=== PATIENT | female | born 1935 | race Caucasian/White ===

== ENCOUNTER → 2016-06-26 | Outpatient (REF) ==
[~2016-06-26] MED LIST: FURO20TA2 PO; KLOR1CAP2 PO; LEVO50TA45 PO; VITA100066 PO
[2016-06-26 08:44] LABS: MEAN CORPUSCULAR HEMOGLOBIN 29.4 pg (27.0-33.0); MEAN CORPUSCULAR HGB CONC 33.1 g/dl (32.0-36.5); MEAN CORPUSCULAR VOLUME 88.8 fl (80.0-96.0); RED CELL DISTRIBUTION WIDTH 13.6 % (11.5-14.5)
== END ==
LOC: SKLAB2 07:00
PROVIDERS: ATTEND Internal Medicine
DX: I63.9 Cerebral infarction, unspecified (principal)

== ENCOUNTER → 2016-08-23 | Outpatient (REF) | payer MEDICARE, MEDICAID ==
[2016-08-23 19:59] LABS: MEAN CORPUSCULAR HEMOGLOBIN 29.7 pg (27.0-33.0); MEAN CORPUSCULAR HGB CONC 32.7 g/dl (32.0-36.5); MEAN CORPUSCULAR VOLUME 90.8 fl (80.0-96.0); RED CELL DISTRIBUTION WIDTH 13.5 % (11.5-14.5); WHITE BLOOD COUNT 8.8 K/mm3 (4.0-10.0)
[2016-08-23 20:18] LABS: ALBUMIN 3.8 GM/DL (3.2-5.2); ALKALINE PHOSPHATASE 119 U/L (45-117); ALT/SGPT 20 U/L (12-78); ANION GAP 6 MEQ/L (8-16); AST/SGOT 24 U/L (15-37); BILIRUBIN,TOTAL 0.6 MG/DL (0.2-1.0); BLOOD UREA NITROGEN 25 MG/DL (7-18); CALCIUM LEVEL 9.5 MG/DL (8.8-10.2); CARBON DIOXIDE LEVEL 28 MEQ/L (21-32); CHLORIDE LEVEL 107 MEQ/L (98-107); CREATININE FOR GFR 0.95 MG/DL (0.55-1.02); FREE T4 1.44 NG/DL (0.76-1.46); GLOMERULAR FILTRATION RATE > 60.0 (>39); GLUCOSE, FASTING 92 MG/DL (83-110); POTASSIUM SERUM 4.3 MEQ/L (3.5-5.1); SODIUM LEVEL 141 MEQ/L (136-145)
== END ==
LOC: M SFHCADAM 15:01
PROVIDERS: ATTEND Physician Assistant
DX: R63.4 Abnormal weight loss (principal); E03.9 Hypothyroidism, unspecified; E55.9 Vitamin D deficiency, unspecified
CPT/HCPCS: 80053; 82306; 84439; 84443; 85027; G0463

== ENCOUNTER 2016-09-19 12:24 | Emergency (ER) | payer MEDICARE, MEDICAID ==
[~2016-09-19] VITALS: Ht 142.2 cm; Wt 35.4 kg
[2016-09-19] MEDS ORDERED: AMLO5TAB2 PO (13:31)
[2016-09-19] MEDS ORDERED: PLAV75TA38 PO (13:31)
[2016-09-19] MEDS ORDERED: NS 500 ML IV ONE (13:45)
[2016-09-19 14:21] LABS: BASO % 0.2 % (0.0-1.0); EOS % 0.1 % (0.0-3.0); LARGE UNSTAINED CELL # 0.1 K/mm3 (0.0-0.4); LARGE UNSTAINED CELL % 0.5 % (0.0-4.0); LYMPH # 0.9 K/mm3 (1.5-4.5); LYMPH % 8.8 % (24.0-44.0); MEAN CORPUSCULAR HEMOGLOBIN 29.5 pg (27.0-33.0); MEAN CORPUSCULAR HGB CONC 33.3 g/dl (32.0-36.5); MEAN CORPUSCULAR VOLUME 88.7 fl (80.0-96.0); MONO # 0.3 K/mm3 (0.0-0.8); MONO % 2.8 % (0.0-5.0); NEUTROPHILS # 8.8 K/mm3 (1.8-7.7); NEUTROPHILS % 87.6 % (36.0-66.0); PLATELET COUNT, AUTOMATED 251 k/mm3 (150-450); RED CELL DISTRIBUTION WIDTH 13.6 % (11.5-14.5); WHITE BLOOD COUNT 10.1 K/mm3 (4.0-10.0)
[2016-09-19 14:37] LABS: ALBUMIN 3.7 GM/DL (3.2-5.2); ALBUMIN/GLOBULIN RATIO 1.06 (1.00-1.93); ALKALINE PHOSPHATASE 113 U/L (45-117); ALT/SGPT 21 U/L (12-78); ANION GAP 8 MEQ/L (8-16); AST/SGOT 19 U/L (15-37); BILIRUBIN,DIRECT 0.2 MG/DL (0.0-0.2); BILIRUBIN,TOTAL 0.6 MG/DL (0.2-1.0); BLOOD UREA NITROGEN 19 MG/DL (7-18); CALCIUM LEVEL 9.5 MG/DL (8.8-10.2); CARBON DIOXIDE LEVEL 29 MEQ/L (21-32); CHLORIDE LEVEL 106 MEQ/L (98-107); CREATININE FOR GFR 0.88 MG/DL (0.55-1.02); GLOMERULAR FILTRATION RATE > 60.0 (>39); GLUCOSE, FASTING 121 MG/DL (83-110); SODIUM LEVEL 143 MEQ/L (136-145); TOTAL PROTEIN 7.2 GM/DL (6.4-8.2)
[2016-09-19] MEDS ORDERED: ISOVUE-370 76% 100ML VIAL (Q9967) As Ordered ONE (15:03)
[2016-09-19] MEDS ORDERED: NS 250 ML IV ONE (15:30)
--- NOTE | 2016-09-19 15:34 | REP ---
Clinical: Trauma. Technique: Axial contrast enhanced images from the thoracic inlet to the upper abdomen using 100 ml Isovue 370 intravenous contrast material with multiplanar re-formations. Findings: Satisfactory enhancement of the thoracic aorta and pulmonary vasculature is achieved. No filling defects are identified to suggest pulmonary embolus with the exception of atherosclerotic disease the thoracic aorta is without aneurysm or dissection. Further evaluation of the mediastinum demonstrates atherosclerotic changes of the coronary arteries without cardiomegaly or pericardial effusion. The bilateral lung krishnan demonstrate chronic interstitial changes without consolidation/contusion, pleural effusion or pneumothorax. No adenopathy noted. Surrounding musculoskeletal structures intact and no obvious rib or vertebral body fracture is appreciated. Impression: 1. No evidence for acute mediastinal or pleuroparenchymal trauma/injury or pathology. 2. Skeletal structures demonstrate degenerative changes without evidence for acute rib, sternal or vertebral body fracture. 3. Atherosclerotic changes to the aorta without aneurysm or dissection. Normal pulmonary arteries without pulmonary embolus. Signed by Shailesh Padilla MD 09/19/2016 03:26 P
--- NOTE | 2016-09-19 15:43 | REP ---
Clinical: History of trauma with right-sided pain, nausea and vomiting. Technique: Axial contrast enhanced images from the lung bases to the pubic symphysis using 100 ml Isovue 370 intravenous contrast material with coronal and sagittal re-formations. Findings: Lung bases demonstrate chronic changes. No evidence for solid organ injury. Liver, spleen, and bilateral adrenal glands are normal. Gallbladder demonstrates layering sludge without acute cholecystitis. The pancreas demonstrates likely benign cyst at the tail measuring 2.0 cm. Kidneys demonstrate cortical atrophic changes and few scattered subcentimeter cysts. The enteric system is without obstruction or acute inflammatory process - mild fecal stasis is suggested. Pelvis demonstrates normal bladder and evidence for prior hysterectomy. No ascites. No free air. No obvious adenopathy or mass lesion. Atherosclerotic changes of the vasculature noted without aneurysm or dissection. Musculoskeletal structures demonstrate degenerative changes including chronic compression fracture at T12. Impression: 1. No evidence for acute trauma/injury or pathology. 2. Chronic findings as described above including 2 cm pancreatic tail cyst, cholelithiasis, chronic compression fracture at T12. Signed by Shailesh Padilla MD 09/19/2016 03:34 P
--- NOTE | 2016-09-19 15:53 | REP ---
CT HEAD WITHOUT CONTRAST: HISTORY: Fall. COMPARISON: 06/12/2016 An area of decreased attenuation is present in the left thalamus. This represents an old lacunar infarction. An area of decreased attenuation is present in the right temporal lobe. There is dilatation of the overlying cortical sulci. This represent an old infarction. Areas of decreased attenuation are present in the periventricular and subcortical white matter. This represents small vessel ischemic disease. There is no intraparenchymal hemorrhage, mass or midline shift. The ventricular system and cortical sulci are dilated consistent with moderate volume loss. There is no extracerebral collection. There is no fracture. The visualized sinuses are clear. IMPRESSION: 1. 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 2. Old right temporal lobe infarction. 3. Small vessel ischemic disease. 4. Moderate volume loss. Signed by Jack Mckinley MD 09/19/2016 03:57 P
[2016-09-19] MEDS ORDERED: ZOFR4TAB3 PO (16:52)
[2016-09-19 17:38] VITALS: BP 126/70
--- NOTE | 2016-09-19 18:12 | ECGEPIP ---
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
== END 2016-09-19 17:40 | disposition home or self-care (01) ==
LOC: M ED 14:06
DX: R11.2 Nausea with vomiting, unspecified (principal); Z91.81 History of falling; I50.9 Heart failure, unspecified; E03.9 Hypothyroidism, unspecified; K21.9 Gastro-esophageal reflux disease without esophagitis; F17.200 Nicotine dependence, unspecified, uncomplicated; Z86.73 Personal history of transient ischemic attack (TIA), and cerebral infarction without residual deficits; Z88.8 Allergy status to other drugs, medicaments and biological substances; Z79.899 Other long term (current) drug therapy; Z79.02 Long term (current) use of antithrombotics/antiplatelets
CPT/HCPCS: 70450; 71275; 74177; 80048; 80076; 81001; 83605; 83690; 85025; 87086; 93005; 93041; 99284; Q9967

== ENCOUNTER → 2016-11-09 | Outpatient (REF) | payer MEDICARE, MEDICAID ==
[~2016-11-09] MED LIST changes: +AMLO5TAB2 PO; +PLAV75TA38 PO; +ZOFR4TAB3 PO
[2016-11-09 19:31] LABS: BASO % 0.5 % (0.0-1.0); EOS # 0.1 K/mm3 (0.0-0.50); EOS % 0.7 % (0.0-3.0); LARGE UNSTAINED CELL # 0.2 K/mm3 (0.0-0.4); LARGE UNSTAINED CELL % 1.9 % (0.0-4.0); LYMPH # 3.5 K/mm3 (1.5-4.5); LYMPH % 37.6 % (24.0-44.0); MEAN CORPUSCULAR HEMOGLOBIN 31.3 pg (27.0-33.0); MEAN CORPUSCULAR VOLUME 91.9 fl (80.0-96.0); MONO # 0.6 K/mm3 (0.0-0.8); MONO % 6.9 % (0.0-5.0); NEUTROPHILS # 4.7 K/mm3 (1.8-7.7); NEUTROPHILS % 52.4 % (36.0-66.0); PLATELET COUNT, AUTOMATED 309 k/mm3 (150-450); RED CELL DISTRIBUTION WIDTH 13.6 % (11.5-14.5); WHITE BLOOD COUNT 8.9 K/mm3 (4.0-10.0)
[2016-11-09 19:42] LABS: ALBUMIN 3.9 GM/DL (3.2-5.2); ALBUMIN/GLOBULIN RATIO 1.05 (1.00-1.93); BILIRUBIN,TOTAL 0.7 MG/DL (0.2-1.0); CALCIUM LEVEL 9.4 MG/DL (8.8-10.2); CREATININE FOR GFR 1.19 MG/DL (0.55-1.02); GLOMERULAR FILTRATION RATE 46.6 (>39); POTASSIUM SERUM 4.6 MEQ/L (3.5-5.1); TOTAL PROTEIN 7.6 GM/DL (6.4-8.2)
== END ==
LOC: M SFHCADAM 15:50
PROVIDERS: ATTEND Physician Assistant
DX: F03.91 Unspecified dementia, unspecified severity, with behavioral disturbance (principal); F22 Delusional disorders; Z79.899 Other long term (current) drug therapy
CPT/HCPCS: 80053; 81001; 85025; 87086; G0463

== ENCOUNTER → 2016-11-29 | Outpatient (CLI) | payer MEDICAID, MEDICARE | LOC: M RAD 09:24 | PROVIDERS: ATTEND Physician Assistant | DX: F03.91 Unspecified dementia, unspecified severity, with behavioral disturbance (principal); F22 Delusional disorders; Z53.9 Procedure and treatment not carried out, unspecified reason ==

== ENCOUNTER → 2017-10-23 | Outpatient (REF) | payer MEDICARE, MEDICAID ==
[2017-10-23 20:09] LABS: HEMATOCRIT 37.8 % (36.0-47.0); HEMOGLOBIN 12.2 g/dl (12.0-15.5); MEAN CORPUSCULAR HEMOGLOBIN 30.1 pg (27.0-33.0); MEAN CORPUSCULAR HGB CONC 32.3 g/dl (32.0-36.5); MEAN CORPUSCULAR VOLUME 93.3 fl (80.0-96.0); PLATELET COUNT, AUTOMATED 332 10^3/uL (150-450); RED BLOOD COUNT 4.05 10^6/uL (4.00-5.40); RED CELL DISTRIBUTION WIDTH 13.4 % (11.5-14.5); WHITE BLOOD COUNT 10.2 10^3/uL (4.0-10.0)
[2017-10-23 20:21] LABS: ALBUMIN 3.9 GM/DL (3.2-5.2); ALBUMIN/GLOBULIN RATIO 0.95 (1.00-1.93); ALKALINE PHOSPHATASE 130 U/L (45-117); ALT/SGPT 29 U/L (12-78); ANION GAP 10 MEQ/L (8-16); AST/SGOT 29 U/L (7-37); BILIRUBIN,TOTAL 0.7 MG/DL (0.2-1.0); BLOOD UREA NITROGEN 40 MG/DL (7-18); CALCIUM LEVEL 9.4 MG/DL (8.8-10.2); CARBON DIOXIDE LEVEL 26 MEQ/L (21-32); CHLORIDE LEVEL 107 MEQ/L (98-107); CHOLESTEROL LEVEL 118 MG/DL (<200); CHOLESTEROL RISK RATIO 2.145 (<5); CREATININE FOR GFR 1.29 MG/DL (0.55-1.30); FREE T4 1.47 NG/DL (0.76-1.46); GLOMERULAR FILTRATION RATE 42.3 (>32); GLUCOSE, FASTING 88 MG/DL (70-100); HDL CHOLESTEROL 55 MG/DL (>40); LDL CHOLESTEROL 46.8 MG/DL (<100); NON-HDL-C 63 MG/DL; SODIUM LEVEL 143 MEQ/L (136-145); TRIGLYCERIDES LEVEL 81 MG/DL (<150)
[2017-10-23 20:22] LABS: POTASSIUM SERUM 5.6 MEQ/L (3.5-5.1)
== END ==
LOC: M SFHCADAM 15:24
DX: I25.10 Atherosclerotic heart disease of native coronary artery without angina pectoris (principal); E03.9 Hypothyroidism, unspecified; I10 Essential (primary) hypertension; Z23 Encounter for immunization
CPT/HCPCS: 84443

== ENCOUNTER 2018-03-28 12:19 | Inpatient (IN) | payer MEDICARE, MEDICAID ==
[2018-03-28 13:16] LABS: BASO % 0.3 % (0.0-1.0); EOS # 0.1 10^3/uL (0.0-0.50); EOS % 0.5 % (0.0-3.0); HEMATOCRIT 36.2 % (36.0-47.0); HEMOGLOBIN 11.8 g/dl (12.0-15.5); IMMATURE GRANULOCYTE % 0.2 % (0-3.0); LYMPH # 2.5 10^3/uL (1.5-4.5); LYMPH % 24.1 % (24.0-44.0); MEAN CORPUSCULAR HEMOGLOBIN 30.3 pg (27.0-33.0); MEAN CORPUSCULAR HGB CONC 32.6 g/dl (32.0-36.5); MEAN CORPUSCULAR VOLUME 93.1 fl (80.0-96.0); MONO # 0.8 10^3/uL (0.0-0.8); MONO % 7.2 % (0.0-5.0); NEUTROPHILS # 7.1 10^3/uL (1.8-7.7); NEUTROPHILS % 67.7 % (36.0-66.0); PLATELET COUNT, AUTOMATED 324 10^3/uL (150-450); RED BLOOD COUNT 3.89 10^6/uL (4.00-5.40); WHITE BLOOD COUNT 10.4 10^3/uL (4.0-10.0)
[2018-03-28 13:31] LABS: ALBUMIN 3.9 GM/DL (3.2-5.2); ALKALINE PHOSPHATASE 92 U/L (45-117); ALT/SGPT 21 U/L (12-78); ANION GAP 9 MEQ/L (8-16); AST/SGOT 21 U/L (7-37); BILIRUBIN,DIRECT 0.2 MG/DL (0.0-0.2); BILIRUBIN,TOTAL 0.8 MG/DL (0.2-1.0); BLOOD UREA NITROGEN 38 MG/DL (7-18); CALCIUM LEVEL 9.1 MG/DL (8.8-10.2); CARBON DIOXIDE LEVEL 25 MEQ/L (21-32); CHLORIDE LEVEL 109 MEQ/L (98-107); CPK CREATINE PHOSPHOKINASE 63 U/L (26-192); CREATININE FOR GFR 1.45 MG/DL (0.55-1.30); GLUCOSE, FASTING 105 MG/DL (70-100); LIPASE 119 U/L (73-393); POTASSIUM SERUM 5.3 MEQ/L (3.5-5.1); SODIUM LEVEL 143 MEQ/L (136-145); TOTAL PROTEIN 7.8 GM/DL (6.4-8.2); TROPONIN I 0.24 NG/ML (< 0.10)
[2018-03-28] MEDS ORDERED: ISOVUE-370 76% 100ML VIAL (Q9967) As Ordered (13:42)
[2018-03-28 14:01] LABS: KETONE, URINE AUTO RFX NEGATIVE (NEGATIVE); MUCUS, URINE RFX SMALL (NEGATIVE); NITRITE, URINE AUTO RFX NEGATIVE (NEGATIVE); RBC, URINE AUTO RFX 1 /HPF (0-3); SPECIFIC GRAVITY UR AUTO RFX 1.009 (1.002-1.035); SQUAM EPITHELIAL CELL UR AURFX 2 /HPF (0-6)
[2018-03-28 14:03] LABS: LEUKOCYTE ESTERASE UR AUTO RFX 1+ (NEGATIVE); WBC, URINE AUTO RFX 15 /HPF (0-3)
[2018-03-28] MEDS ORDERED: HALOPERIDOL 5 MG/ML VIAL (J1630) IV (15:15)
[2018-03-28] MEDS: HALOPERIDOL 5 MG/ML VIAL (J1630) IM (15:18)
[2018-03-28] MEDS ORDERED: ACETAMINOPHEN 500 MG TAB PO (16:45)
[2018-03-28] MEDS ORDERED: ALBUTEROL 90 MCG/ACT 8GM HFA INHALER INH (16:45)
[2018-03-28 16:56] LABS: FREE T4 1.51 NG/DL (0.76-1.46)
[2018-03-29] MEDS: LEVOTHYROXINE 50MCG TABLET (0.05MG) PO (05:44)
[2018-03-29 06:30] LABS: HEMATOCRIT 38.1 % (36.0-47.0); HEMOGLOBIN 12.3 g/dl (12.0-15.5); MEAN CORPUSCULAR HEMOGLOBIN 30.3 pg (27.0-33.0); MEAN CORPUSCULAR HGB CONC 32.3 g/dl (32.0-36.5); MEAN CORPUSCULAR VOLUME 93.8 fl (80.0-96.0); PLATELET COUNT, AUTOMATED 333 10^3/uL (150-450); RED BLOOD COUNT 4.06 10^6/uL (4.00-5.40); RED CELL DISTRIBUTION WIDTH 13.2 % (11.5-14.5); WHITE BLOOD COUNT 10.5 10^3/uL (4.0-10.0)
[2018-03-29 06:44] LABS: ANION GAP 5 MEQ/L (8-16); BLOOD UREA NITROGEN 33 MG/DL (7-18); CALCIUM LEVEL 9.4 MG/DL (8.8-10.2); CARBON DIOXIDE LEVEL 26 MEQ/L (21-32); CHLORIDE LEVEL 111 MEQ/L (98-107); CREATININE FOR GFR 1.37 MG/DL (0.55-1.30); GLOMERULAR FILTRATION RATE 39.5 (>32); GLUCOSE, FASTING 85 MG/DL (70-100); POTASSIUM SERUM 5.1 MEQ/L (3.5-5.1); SODIUM LEVEL 142 MEQ/L (136-145)
[2018-03-29 09:36] LABS: TROPONIN I 0.27 NG/ML (< 0.10)
[2018-03-29] MEDS: FUROSEMIDE 20 MG TAB PO (09:39)
[2018-03-29] MEDS: CLOPIDOGREL 75 MG TAB PO (09:39)
[2018-03-29] MEDS: VITAMIN D 1,000 INTERNATIONAL UNITS TABLET PO (09:39)
[2018-03-29] MEDS: ATORVASTATIN 20 MG TAB PO (09:39)
[2018-03-29] MEDS: FLUBLOK(EGG FREE)(QUAD)INFLUENZA VACC 0.5ML SYRINGE (90682)18YRS&OLDER IM (09:44)
[2018-03-30] MEDS: LEVOTHYROXINE 25MCG TABLET (0.025MG) PO (05:26)
[2018-03-30 07:18] LABS: HEMATOCRIT 36.5 % (36.0-47.0); HEMOGLOBIN 11.7 g/dl (12.0-15.5); MEAN CORPUSCULAR HEMOGLOBIN 30.2 pg (27.0-33.0); MEAN CORPUSCULAR HGB CONC 32.1 g/dl (32.0-36.5); MEAN CORPUSCULAR VOLUME 94.1 fl (80.0-96.0); PLATELET COUNT, AUTOMATED 322 10^3/uL (150-450); RED BLOOD COUNT 3.88 10^6/uL (4.00-5.40); WHITE BLOOD COUNT 10.8 10^3/uL (4.0-10.0)
[2018-03-30 07:54] LABS: ANION GAP 9 MEQ/L (8-16); BLOOD UREA NITROGEN 42 MG/DL (7-18); CALCIUM LEVEL 8.6 MG/DL (8.8-10.2); CARBON DIOXIDE LEVEL 24 MEQ/L (21-32); CHLORIDE LEVEL 108 MEQ/L (98-107); CREATININE FOR GFR 1.39 MG/DL (0.55-1.30); GLOMERULAR FILTRATION RATE 38.8 (>32); GLUCOSE, FASTING 85 MG/DL (70-100); NT-PRO BNP 534 PG/ML (<450); POTASSIUM SERUM 4.6 MEQ/L (3.5-5.1); SODIUM LEVEL 141 MEQ/L (136-145); TROPONIN I 0.23 NG/ML (< 0.10)
[2018-03-30] MEDS: ATORVASTATIN 20 MG TAB PO (08:36)
[2018-03-30] MEDS: VITAMIN D 1,000 INTERNATIONAL UNITS TABLET PO (08:36)
[2018-03-30] MEDS: CLOPIDOGREL 75 MG TAB PO (08:36)
[2018-03-31] MEDS: LEVOTHYROXINE 25MCG TABLET (0.025MG) PO (05:41)
[2018-03-31 06:12] LABS: HEMATOCRIT 32.8 % (36.0-47.0); HEMOGLOBIN 10.8 g/dl (12.0-15.5); MEAN CORPUSCULAR HEMOGLOBIN 30.9 pg (27.0-33.0); MEAN CORPUSCULAR HGB CONC 32.9 g/dl (32.0-36.5); MEAN CORPUSCULAR VOLUME 93.7 fl (80.0-96.0); PLATELET COUNT, AUTOMATED 272 10^3/uL (150-450); RED CELL DISTRIBUTION WIDTH 12.8 % (11.5-14.5); WHITE BLOOD COUNT 8.4 10^3/uL (4.0-10.0)
[2018-03-31 06:35] LABS: ANION GAP 6 MEQ/L (8-16); BLOOD UREA NITROGEN 35 MG/DL (7-18); CALCIUM LEVEL 8.4 MG/DL (8.8-10.2); CARBON DIOXIDE LEVEL 25 MEQ/L (21-32); CHLORIDE LEVEL 110 MEQ/L (98-107); GLUCOSE, FASTING 82 MG/DL (70-100); POTASSIUM SERUM 3.9 MEQ/L (3.5-5.1); SODIUM LEVEL 141 MEQ/L (136-145)
[2018-03-31] MEDS: CLOPIDOGREL 75 MG TAB PO (08:19)
[2018-03-31] MEDS: VITAMIN D 1,000 INTERNATIONAL UNITS TABLET PO (08:19)
[2018-03-31] MEDS: ATORVASTATIN 20 MG TAB PO (08:19)
== END 2018-03-31 19:00 | disposition home or self-care (01) | DRG 69 ==
LOC: M ED 12:19 → M ED INP 15:04 → M MSPAV 16:55
DX: I67.89 Other cerebrovascular disease (principal); F01.51 Vascular dementia, unspecified severity, with behavioral disturbance; R10.30 Lower abdominal pain, unspecified; E03.9 Hypothyroidism, unspecified; E78.5 Hyperlipidemia, unspecified; J44.9 Chronic obstructive pulmonary disease, unspecified; M81.0 Age-related osteoporosis without current pathological fracture; D63.8 Anemia in other chronic diseases classified elsewhere; R41.82 Altered mental status, unspecified; N18.3 Chronic kidney disease, stage 3 (moderate); Z79.899 Other long term (current) drug therapy; Z90.710 Acquired absence of both cervix and uterus; Z90.49 Acquired absence of other specified parts of digestive tract; Z87.891 Personal history of nicotine dependence; Z88.6 Allergy status to analgesic agent; Z86.73 Personal history of transient ischemic attack (TIA), and cerebral infarction without residual deficits

== ENCOUNTER 2018-04-01 17:23 | Inpatient (IN) | payer MEDICARE, MEDICAID ==
[~2018-04-01] VITALS: Ht 147.3 cm; Wt 41.4 kg
[~2018-04-01 17:23] MED LIST changes: +ACET-683 PO; -AMLO5TAB2 PO; +AMLO5TAB6 PO; +ATOR1TAB21 PO; +ATOR80TA59 PO; +LEVO25TA5 PO; +NITR0.4S14 SL; +PLAV1TAB2 PO; -PLAV75TA38 PO; +VENTAER INH; +ZOFR4TAB14 PO; -ZOFR4TAB3 PO
[2018-04-01 20:04] LABS: VENOUS BASE EXCESS -3.7 (-2.0-2.0); VENOUS HCO3 20.7 MEQ/L (23.0-27.0); VENOUS O2 SATURATION 78.4 % (60.0-80.0); VENOUS PARTIAL PRESSURE CO2 35.6 mmHg (38.0-50.0); VENOUS PARTIAL PRESSURE O2 43.2 mmHg (30.0-50.0); VENOUS PH 7.383 UNITS (7.330-7.430); VENOUS TOTAL CO2 21.8 MEQ/L (24.0-28.0)
[2018-04-01 20:06] LABS: BASO # 0.1 10^3/uL (0.0-0.2); BASO % 0.6 % (0.0-1.0); EOS # 0.2 10^3/uL (0.0-0.50); EOS % 1.9 % (0.0-3.0); HEMOGLOBIN 11.9 g/dl (12.0-15.5); LYMPH % 30.9 % (24.0-44.0); MEAN CORPUSCULAR HEMOGLOBIN 30.7 pg (27.0-33.0); MEAN CORPUSCULAR HGB CONC 33.1 g/dl (32.0-36.5); MEAN CORPUSCULAR VOLUME 92.8 fl (80.0-96.0); MONO # 0.8 10^3/uL (0.0-0.8); MONO % 7.8 % (0.0-5.0); NEUTROPHILS # 5.7 10^3/uL (1.8-7.7); NEUTROPHILS % 58.5 % (36.0-66.0); PLATELET COUNT, AUTOMATED 304 10^3/uL (150-450); RED BLOOD COUNT 3.88 10^6/uL (4.00-5.40); WHITE BLOOD COUNT 9.7 10^3/uL (4.0-10.0)
[2018-04-01 20:38] LABS: ALBUMIN 3.6 GM/DL (3.2-5.2); ALT/SGPT 21 U/L (12-78); BILIRUBIN,DIRECT 0.2 MG/DL (0.0-0.2); BILIRUBIN,TOTAL 0.7 MG/DL (0.2-1.0); BLOOD UREA NITROGEN 31 MG/DL (7-18); CALCIUM LEVEL 9.3 MG/DL (8.8-10.2); CARBON DIOXIDE LEVEL 25 MEQ/L (21-32); CHLORIDE LEVEL 110 MEQ/L (98-107); CPK CREATINE PHOSPHOKINASE 82 U/L (26-192); CREATININE FOR GFR 1.08 MG/DL (0.55-1.30); GLUCOSE, FASTING 85 MG/DL (70-100); MB/CK RELATIVE INDEX 3.78 (< OR =4); POTASSIUM SERUM 4.4 MEQ/L (3.5-5.1); SODIUM LEVEL 143 MEQ/L (136-145); TOTAL PROTEIN 7.2 GM/DL (6.4-8.2); TROPONIN I 0.28 NG/ML (< 0.10)
[2018-04-01 20:55] LABS: ETHYL ALCOHOL (ETHANOL) < 0.003 % (0.000-0.010); FREE THYROXINE INDEX 4.2 % (1.3-4.8); T UPTAKE 35 % (30-39); THYROXINE (T4) 11.9 UG/DL (4.5-12.0)
[2018-04-01 20:59] LABS: AMPHETAMINES LEVEL URINE NEGATIVE (NEGATIVE); BARBITURATES URINE NEGATIVE (NEGATIVE); BENZODIAZEPINES URINE NEGATIVE (NEGATIVE); CANNABINOIDS URINE NEGATIVE (NEGATIVE); COCAINE METABOLITE URINE NEGATIVE (NEGATIVE); METHADONE URINE NEGATIVE (NEGATIVE); OPIATES URINE NEGATIVE (NEGATIVE); PHENCYCLIDINE URINE NEGATIVE (NEGATIVE)
--- NOTE | 2018-04-01 21:06 | REP ---
Clinical: Altered mental status. Comparison: 09/19/2016, 03/28/2018 . Findings: Atrophy with periventricular leukomalacia and microvascular ischemic changes are appreciated. The ventricles and sulci are symmetric. Cheng-white differentiation is maintained. There is no evidence for acute intracranial hemorrhage, mass/mass effect, pathology or infarction. No extra-axial fluid collection. Calvarium is intact. Paranasal sinuses and mastoid air cells are clear. Impression: Atrophy and microvascular ischemic changes. No acute intracranial hemorrhage, infarction, or mass/mass effect. Electronically Signed by Shailesh Padilla MD 04/01/2018 08:57 P
[2018-04-01 21:47] LABS: ABG HCO3 20.9 MEQ/L (22.0-26.0); ABG O2 SATURATION 97.8 % (95.0-99.0); ABG PARTIAL PRESSURE CO2 30.4 mmHg (35.0-45.0); ABG PARTIAL PRESSURE O2 94.8 mmHg (75.0-100.0); ABG STANDARD HCO3 22.8 MEQ/L (22.0-26.0); ABG TOTAL CO2 21.9 MEQ/L (23.0-31.0); ABG pH (ARTERIAL) 7.456 UNITS (7.350-7.450)
[2018-04-01] MEDS ORDERED: HEPARIN DRIP 25,000 UNITS in APPROPRIATE DILUENT 1 EA IV SCH (22:59)
[2018-04-01] MEDS ORDERED: HEPARIN SOD (PORCINE) 5000 UNITS/ML VIAL IV ONE (23:00)
[2018-04-01] MEDS ORDERED: ATOR1TAB21 PO (23:03)
[2018-04-01] MEDS ORDERED: SYNT25TA PO (23:03)
[2018-04-01] MEDS ORDERED: NITR0.4S14 SL (23:03)
[2018-04-01 23:08] LABS: INR 0.98; PROTHROMBIN TIME 13.1 SECONDS (12.1-14.4)
[2018-04-01 23:09] LABS: PARTIAL THROMBOPLASTIN TIME 31.1 SECONDS (25.4-37.6)
[2018-04-01] MEDS ORDERED: POTA10CA32 PO (23:17)
--- NOTE | 2018-04-01 23:48 | REP ---
Clinical: Dyspnea . Comparison: 03/28/2018 . Technique: PA and lateral. Findings: The mediastinum and cardiac silhouette are normal. The lung krishnan are clear and without acute consolidation, effusion, or pneumothorax. The skeletal structures the straight age-related degenerative changes and osteopenia. Impression: 1. No acute cardiopulmonary process. Electronically Signed by Shailesh Padilla MD 04/01/2018 11:40 P
[2018-04-02 02:37] LABS: MB/CK RELATIVE INDEX 3.54 (< OR =4); TROPONIN I 0.3 NG/ML (< 0.10)
[2018-04-02] MEDS: ATORVASTATIN 20 MG TAB PO SCH ×2 (03:36→20:21)
[2018-04-02 08:35] VITALS: BP 164/73
[2018-04-02 09:30] VITALS: BP 150/69
--- NOTE | 2018-04-02 09:56 | IPNPDOC ---
Subjective Date Seen The patient was seen on 04/02/18. Subjective Chief Complaint/HPI The patient is a 82-year-old female admitted with a reason for visit of Disorganized Thought Process. Events since last encounter Upon entering the patient's room, she is deep breathing and stating she's pushing out the babies. c/o pelvic pain and contractions. Able to state name and . Aware she's in the hospital, yet unaware of how long. unaware of date or year. Constitutional: Denies: Chills, Fever, Night Sweats ENT: Denies: Head Aches, Ear Pain, Dysphagia Pulmonary: Denies: Dyspnea, Cough Cardiovascular: Denies: Chest Pain, Palpitations, Orthopnea, Paroxysmal Noc. Dyspnea, Lt Headedness Gastrointestinal: Reports: Other Symptoms (" labor pains" ) Genitourinary: Reports: Incontinence; Denies: Dysuria, Frequency, Retention Psych: Reports: Anxiety, Memory Issues Objective Physical Examination General Exam: Positive: Alert, Cooperative, Other (confused, lamaze type breathing) Neck Exam: Positive: Supple; Negative: JVD, thyromegaly Chest Exam: Positive: Clear to auscultation, Normal air movement Heart Exam: Positive: Rate Normal, Regular Rhythm, Normal S1, Normal S2; Negative: Murmurs, Rubs Abdomen Exam: Positive: BS Hyperactive, Soft, Tenderness (suprapubic) Skin Exam: Positive: Nl turgor and temperature Psych Exam: Positive: Other (convinced she is having babies) Assessment /Plan Assessment 04/02 CDT -- agree with below. When I examined this patient, she had been told by her family that she would need placement, and was very angry. She was also disoriented, insisting that she was in a rec room on the first floor, not in the hospital on the 4th floor. She also believed that it was August of 1982, and could not reconcile my statement that I was born in 1982. She was briefly combative when I tried to examine her heart and lungs. Admitted to mild abdominal discomfort, stated "lots of gas." Problems (1) Vascular dementia Status: Chronic (2) Delusion of Status: Acute Problem Text: CT abd/pelvis negative from 03/28/18. + hysterectomy. (3) Abdominal pain Status: Acute Problem Text: CT Abd/pelvis negative from 03/28. ? gas pains vs bladder spasm. will eval bladder US and Flat plate of abdomen. (4) Hypothyroid Status: Chronic (5) CKD (chronic kidney disease), stage III Status: Chronic Plan/VTE VTE Prophylaxis Ordered?: Yes (plavix, TEDS/SCDs) VS, I&O, 24H, Fishbone Vital Signs/I&O Vital Signs Date Time Temp Pulse Resp B/P (MAP) Pulse Ox O2 Delivery O2 Flow Rate FiO2 04/02/18 09:30 150/69 (96) 04/02/18 08:35 97.4 72 19 98 Room Air Laboratory Data 24H LABS Laboratory Tests 2 04/01/18 19:52: Immature Granulocyte % (Auto) 0.3, White Blood Count 9.7, Red Blood Count 3.88L, Hemoglobin 11.9L, Hematocrit 36.0, Mean Corpuscular Volume 92.8, Mean Corpuscular Hemoglobin 30.7, Mean Corpuscular Hemoglobin Concent 33.1, Red Cell Distribution Width 12.9, Platelet Count 304, Neutrophils (%) (Auto) 58.5, Lymphocytes (%) (Auto) 30.9, Monocytes (%) (Auto) 7.8H, Eosinophils (%) (Auto) 1.9, Basophils (%) (Auto) 0.6, Neutrophils # (Auto) 5.7, Lymphocytes # (Auto) 3.0, Monocytes # (Auto) 0.8, Eosinophils # (Auto) 0.2, Basophils # (Auto) 0.1, Nucleated Red Blood Cells % (auto) 0.0, Prothrombin Time 13.1, Prothromb Time International Ratio 0.98, Activated Partial Thromboplast Time 31.1, Blood Gas Bicarbonate Standard 21.0, Venous Blood pH 7.383, Venous Blood Partial Pressure CO2 35.6L, Venous Blood Partial Pressure O2 43.2, Venous Blood Total Carbon Dioxide 21.8L, Venous Blood HCO3 20.7L, Venous Blood Oxygen Saturation 78.4, Venous Blood Base Excess -3.7L, Anion Gap 8, Glomerular Filtration Rate 52.0, Calcium Level 9.3, Aspartate Amino Transf (AST/SGOT) 22, Alanine Aminotransferase (ALT/SGPT) 21, Alkaline Phosphatase 84, Total Bilirubin 0.7, Direct Bilirubin 0.2, Ammonia 11, Total Creatine Kinase 82, Creatine Kinase MB 3.0, Creatine Kinase MB Relative Index 3.78, Troponin I 0.28H, Total Protein 7.2, Albumin 3.6, Albumin/Globulin Ratio 1.00, Thyroid Stimulating Hormone (TSH) 3.510, Free Thyroxine Index 4.2, Thyroxine (T4) 11.9, Triiodothyronine (T3) Uptake 35, Ethyl Alcohol Level < 0.003 04/01/18 20:16: Urine Color STRAW, Urine Appearance CLEAR, Urine pH 5.0, Urine Specific [place] 1.008, Urine Protein NEGATIVE, Urine Glucose (UA) NEGATIVE, Urine Ketones NE GATIVE, Urine Blood NEGATIVE, Urine Nitrite NEGATIVE, Urine Bilirubin NEGATIVE, Urine Urobilinogen 0.2, Urine Leukocyte Esterase NEGATIVE, Urine WBC (Auto) 0, Urine RBC (Auto) 1, Urine Hyaline Casts (Auto) 0, Urine Bacteria (Auto) NEGATIVE, Urine Squamous Epithelial Cells 0, Urine Sperm (Auto) , Urine Amphetamines Screen NEGATIVE, Urine Benzodiazepines Screen NEGATIVE, Urine Opiates Screen NEGATIVE, Urine Methadone Screen NEGATIVE, Urine Barbiturates Screen NEGATIVE, Urine Phencyclidine Screen NEGATIVE, Urine Cocaine Metabolite Screen NEGATIVE, Urine Cannabinoids Screen NEGATIVE 04/01/18 21:38: Blood Gas Bicarbonate Standard 22.8, Arterial Blood pH 7.456H, Arterial Blood Partial Pressure CO2 30.4L, Arterial Blood Partial Pressure O2 94.8, Arterial Blood Total CO2 21.9L, Arterial Blood HCO3 20.9L, Arterial Blood Base Excess - 2.0, Arterial Blood Oxygen Saturation 97.8 04/02/18 01:37: Total Creatine Kinase 79, Creatine Kinase MB 3.0, Creatine Kinase MB Relative Index 3.54, Troponin I 0.30H CBC/BMP Laboratory Tests 04/01/18 19:52 Red Blood Count 3.88 L, Mean Corpuscular Volume 92.8, Mean Corpuscular Hemoglobin 30.7, Mean Corpuscular Hemoglobin Concent 33.1, Red Cell Distribution Width 12.9, Neutrophils (%) (Auto) 58.5, Lymphocytes (%) (Auto) 30.9, Monocytes (%) (Auto) 7.8 H, Eosinophils (%) (Auto) 1.9, Basophils (%) (Auto) 0.6, Neutrophils # (Auto) 5.7, Lymphocytes # (Auto) 3.0, Monocytes # (Auto) 0.8, Eosinophils # (Auto) 0.2, Basophils # (Auto) 0.1 Maren HancockP Apr 02, 2018 09:56 GLORIA EDUARDO DO Apr 02, 2018 23:06
--- NOTE | 2018-04-02 10:13 | ECGEPIP ---
Stationary ECG Study 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
[2018-04-02 10:29] LABS: HEMATOCRIT 36.5 % (36.0-47.0); MEAN CORPUSCULAR HEMOGLOBIN 30.2 pg (27.0-33.0); MEAN CORPUSCULAR HGB CONC 32.9 g/dl (32.0-36.5); MEAN CORPUSCULAR VOLUME 91.7 fl (80.0-96.0); PLATELET COUNT, AUTOMATED 335 10^3/uL (150-450); RED BLOOD COUNT 3.98 10^6/uL (4.00-5.40); WHITE BLOOD COUNT 10.4 10^3/uL (4.0-10.0)
[2018-04-02 11:06] LABS: CALCIUM LEVEL 8.6 MG/DL (8.8-10.2); CREATININE FOR GFR 1.22 MG/DL (0.55-1.30); GLOMERULAR FILTRATION RATE 45.1 (>32); POTASSIUM SERUM 4.2 MEQ/L (3.5-5.1)
--- NOTE | 2018-04-02 11:10 | REP ---
Clinical: Epigastric and abdominal pain. Technique: Upright view of the chest with supine and upright views of the abdomen and pelvis. Findings: Frontal upright view of the chest demonstrates chronic interstitial changes without free air below the diaphragm to suspect pneumoperitoneum. Supine and upright views of the abdomen and pelvis demonstrate nonspecific bowel gas pattern without obstruction or perforation. No organomegaly. Scattered vascular calcifications are identified. Skeletal structures demonstrate age-related degenerative changes. Impression: Nonspecific bowel gas pattern. Electronically Signed by Shailesh Padilla MD 04/02/2018 11:02 A
[2018-04-02] MEDS: LEVOTHYROXINE 25MCG TABLET (0.025MG) PO SCH (11:37)
[2018-04-02] MEDS: CLOPIDOGREL 75 MG TAB PO SCH (11:38)
[2018-04-02] MEDS: FUROSEMIDE 20 MG TAB PO SCH (11:38)
[2018-04-02] MEDS: VITAMIN D 1,000 INTERNATIONAL UNITS TABLET PO SCH (11:38)
[2018-04-02] MEDS: POTASSIUM CHLORIDE 10 MEQ SR TABLET PO SCH (11:38)
[2018-04-02 14:00] VITALS: BP 134/68
--- NOTE | 2018-04-02 15:32 | REP ---
Clinical: Flank pain and urinary frequency. Technique: Real time peace scale ultrasound examination using curved array transducer. Findings: Bilateral kidneys are normal in contour and demonstrate mild atrophy with increased central sinus fat and subtle increased parenchymal echo texture consistent with chronic medical renal disease and age-related changes. No hydronephrosis, nephrolithiasis or cystic mass lesion appreciated. Right kidney measures 8.3 x 4.4 x 3.2 cm. Left kidney measures 8.6 x 3.9 x 3.7 cm. Bladder is incompletely distended but grossly normal in appearance by current imaging. Impression: Kidneys demonstrate age-related changes. No hydronephrosis. Electronically Signed by Shailesh Padilla MD 04/02/2018 11:12 A
[2018-04-02] MEDS ORDERED: HALOPERIDOL 5 MG/ML VIAL (J1630) IM PRN (18:30)
--- NOTE | 2018-04-02 19:09 | HPE ---
DATE OF ADMISSION: 04/01/2018 An 82-year-old female who was just recently discharged on the 03/28/2018 for altered mental status. She presents to the emergency room with similar symptoms, brought by son, other family members. The patient also was complaining of abdominal pain and stated that she was and her water broke. Clearly this is not true; she is 82 years old and so her dementia is advanced, and hence why the son brought the patient to the emergency room (ER). No incidental findings in the emergency room, and the patient will be admitted for further management. 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 ALLERGIES: She has drug allergies to ASPIRIN. FAMILY HISTORY: Cannot be assessed; she is demented. SOCIAL HISTORY: Cannot be assessed; she is demented. Medications she takes at home are as follows: - Tylenol 1 gram by mouth every 6 hours as needed - albuterol two puffs inhaled every 4 hours as needed - atorvastatin 40 mg daily at bedtime - cholecalciferol 1000 units orally daily - Plavix 75 mg orally daily - Lasix 20 mg orally daily - Synthroid 25 mcg orally daily - nitroglycerin 0.4 mg sublingual as needed - potassium chloride 10 mEq orally daily REVIEW OF SYSTEMS: Cannot be assessed; patient is demented. Vital Signs: Blood pressure 128/66, heart rate is 65, regular, respiratory rate 18, temperature is 97.7, oxygen saturation is 96% on room air. Head: Atraumatic, normocephalic. Neck: Supple. No jugular venous distention (JVD). Lungs: Clear to auscultation. Heart: S1, S2 . No murmurs appreciated. Abdomen: Soft. Positive bowel sounds. No pedal edema. Skin: Intact. Neurologic Examination: Patient is awake, alert, oriented times zero. LABORATORY: WBC 9.7, hemoglobin 11.9, hematocrit 36, platelets are 304,000. Chemistries: Sodium 143, potassium 4.4, chloride is 110, CO2 25, BUN is 31, creatinine 1.08, AST 22, ALT is 21. TSH 3.5. Urine toxicology negative. Arterial blood gas shows a pH of 7.456, pCO2 of 30.4, pO2 94.8. IMPRESSION: 1. Dementia with behavioral disturbance. 2. CVA. PLAN: The patient is to be admitted to medical-surgical floor. Will get a social sciences chair on board to get her placed in the proper residential. As per the family, they cannot handle her anymore. Will continue her preadmission medications in the meantime and follow with social work and case management.
[2018-04-02 20:00] VITALS: BP 144/70
[2018-04-03 06:00] VITALS: BP 142/73
--- NOTE | 2018-04-03 08:00 | ECGEPIP ---
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
[2018-04-03] MEDS: LEVOTHYROXINE 25MCG TABLET (0.025MG) PO SCH (08:55)
[2018-04-03] MEDS: POTASSIUM CHLORIDE 10 MEQ SR TABLET PO SCH (08:55)
[2018-04-03] MEDS: FUROSEMIDE 20 MG TAB PO SCH (08:55)
[2018-04-03] MEDS: CLOPIDOGREL 75 MG TAB PO SCH (08:56)
[2018-04-03] MEDS: VITAMIN D 1,000 INTERNATIONAL UNITS TABLET PO SCH (08:56)
--- NOTE | 2018-04-03 10:48 | IPNPDOC ---
Subjective Date Seen The patient was seen on 04/03/18. Subjective Chief Complaint/HPI The patient is a 82-year-old female admitted with a reason for visit of Disorganized Thought Process. Events since last encounter Patient cooperative this am - Thinks that a doctor examined her in the cafeteria yesterday so she is upset about this. Constitutional: Denies: Chills, Fever Pulmonary: Denies: Dyspnea, Cough Cardiovascular: Denies: Chest Pain, Palpitations Gastrointestinal: Denies: Nausea, Vomiting, Abdominal Pain, Diarrhea, Constipation Objective Physical Examination General Exam: Positive: Alert, Cooperative, No Acute Distress Neck Exam: Positive: Supple; Negative: JVD, thyromegaly Chest Exam: Positive: Clear to auscultation, Normal air movement Heart Exam: Positive: Rate Normal, Regular Rhythm, Normal S1, Normal S2; Negative: Murmurs, Rubs Abdomen Exam: Positive: BS Hyperactive, Soft; Negative: Tenderness Skin Exam: Positive: Nl turgor and temperature Psych Exam: Positive: Other; Negative: Mental status NL Assessment /Plan Assessment 04/03 CDT -- patient more calm and not combative, still confused and memory impaired. Denies delusion of at this time. Problems (1) Vascular dementia Status: Chronic Problem Text: Progressively worsening now with episodes of delirium. she lives with her grandson and his and children. Family unable to mange her at home when she is delirious because she becomes agitated and is up all night waking family members. . She responded well to Haldol yesterday. We could consider psych consult or some oral Haldol and see how she does. In the meantime, we will start process of placement, but if she remains stable (not agitated, wan dering, sleeping through the night, her family may be able to take her home) (2) Delusion of Status: Acute Problem Text: CT abd/pelvis negative from 03/28/18. + hysterectomy. (3) Abdominal pain Status: Resolved Problem Text: No abd pain today. Abd x-ray neg. Renal US neg Abd x-ray neg, Renal US unrevealing CT Abd/pelvis negative from 03/28. (4) Hypothyroid Status: Chronic (5) CKD (chronic kidney disease), stage III Status: Chronic Plan/VTE VTE Prophylaxis Ordered?: Yes (plavix, TEDS/SCDs) Disposition PFS for dispo planning - will make SNF once they tell me we can do so VS, I&O, 24H, Fishbone Vital Signs/I&O Vital Signs Date Time Temp Pulse Resp B/P (MAP) Pulse Ox O2 Delivery O2 Flow Rate FiO2 04/03/18 06:00 99.0 86 16 142/73 (96) 95 Room Air I&O- Last 24 Hours up to 6 AM 04/03/18 06:00 Intake Total 360 ml Balance 360 ml BERNARD SNYDER PA-C Apr 03, 2018 10:48 GLORIA EDUARDO DO Apr 03, 2018 23:38
[2018-04-03 14:00] VITALS: BP 127/70
[2018-04-03] MEDS ORDERED: SLF 3 ML SYR IV PRN (16:15)
[2018-04-03 19:46] VITALS: BP 158/73
[2018-04-03] MEDS: ATORVASTATIN 20 MG TAB PO SCH (20:14)
[2018-04-03] MEDS: SLF 3 ML SYR IV SCH (20:47)
[2018-04-03] MEDS ORDERED: SLF 3 ML SYR IV SCH (22:00)
[2018-04-04 04:00] VITALS: BP_SYST 133; BP_SYST 150; BP_DIAS 63; BP_DIAS 68
[2018-04-04] MEDS: SLF 3 ML SYR IV SCH ×3 (06:00→22:00)
[2018-04-04] MEDS: VITAMIN D 1,000 INTERNATIONAL UNITS TABLET PO SCH (09:00)
[2018-04-04] MEDS: FUROSEMIDE 20 MG TAB PO SCH (09:00)
[2018-04-04] MEDS: LEVOTHYROXINE 25MCG TABLET (0.025MG) PO SCH (09:00)
[2018-04-04] MEDS: CLOPIDOGREL 75 MG TAB PO SCH (09:00)
[2018-04-04] MEDS: POTASSIUM CHLORIDE 10 MEQ SR TABLET PO SCH (09:00)
--- NOTE | 2018-04-04 09:00 | IPNPDOC ---
Subjective Date Seen The patient was seen on 04/04/18. Subjective Chief Complaint/HPI The patient is a 82-year-old female admitted with a reason for visit of Disorganized Thought Process. Events since last encounter Per nursing - patient was much more lucid yesterday. She drank quite a bit of caffeinated coffee yesterday eveing so she was awake late and up talking but not agitated or confused Constitutional: Denies: Chills, Fever Pulmonary: Denies: Dyspnea, Cough Cardiovascular: Denies: Chest Pain Gastrointestinal: Denies: Nausea, Vomiting, Abdominal Pain, Diarrhea, Constipation Objective Physical Examination General Exam: Positive: Other (sleeping at time of my exam) Neck Exam: Positive: Supple Chest Exam: Positive: Clear to auscultation, Normal air movement; Negative: Rales, Rhonchi, Wheezing Heart Exam: Positive: Rate Normal, Regular Rhythm, Normal S2 Abdomen Exam: Positive: BS Hyperactive, Soft; Negative: Tenderness Skin Exam: Positive: Nl turgor and temperature Psych Exam: Negative: Mental status NL Assessment /Plan Assessment 04/04 CDT -- Agree with below. Patient is more confused today. She thinks that she needs to pack and get ready for a plane ride with her family. She wants me to talk with her , whom she believes is at the end of the kerr. In truth, she lives with her children, and the office chart lists her as . She was upset, but not agitated. Interestingly, she called her to try and speak with me by looking down to the floor and asking him to come here in a low tone. She then looked right back at me. Problems (1) Vascular dementia Status: Chronic Problem Text: 04/04 - I have paged Dr. Villanueva this am to obtain a consult - hoping to get opinion regarding meds to use at home to keep patient from becoming agitated. I spoke with her son yesterday who would ideally like to take her home, but they cannot handle her if she becomes agitated like she did on the day of admission. They are afraid she will hurt herself or they may hurt her when trying to restrain her. She responded well to Haldol on admission with out significant sedation, however using this medication watermelon inspector carries increased risk of in elderly patients. Seroquel may be a little safer, but I think it would be helpful to get the opinion of psychiatry before deciding on this and then discussing potential risks with the family. (Progressively worsening now with episodes of delusions. she lives with her grandson and his and children. Family unable to mange her at home when she is delusional because she becomes agitated and is up all night waking family members. . She responded well to Haldol yesterday. We could consider psych consult or some oral Haldol and see how she does. In the meantime, we will start process of placement, but if she remains stable (not agitated, wandering, sleeping through the night, her family may be able to take her home) (2) Delusion of Status: Resolved Problem Text: CT abd/pelvis negative from 03/28/18. + hysterectomy. (3) Abdominal pain Status: Resolved Problem Text: No abd pain today. Abd x-ray neg. Renal US neg Abd x-ray neg, Renal US unrevealing CT Abd/pelvis negative from 03/28. (4) Hypothyroid Status: Chronic Response to Treatment: Stable (5) CKD (chronic kidney disease), stage III Status: Chronic Response to Treatment: Stable Plan/VTE VTE Prophylaxis Ordered?: Yes (plavix, TEDS/SCDs) Disposition See above. she is an admission denial VS, I&O, 24H, Fishbone Vital Signs/I&O Vital Signs Date Time Temp Pulse Resp B/P (MAP) Pulse Ox O2 Delivery O2 Flow Rate FiO2 04/04/18 04:00 97.6 61 18 133/63 (86) 94 Room Air I&O- Last 24 Hours up to 6 AM 04/04/18 05:59 Intake Total 1860 ml Output Total 200 ml Balance 1660 ml BERNARD SNYDER PA-C Apr 04, 2018 09:00 GLORIA EDUARDO DO Apr 04, 2018 15:33
[2018-04-04 13:00] VITALS: BP 177/83
[2018-04-04 22:00] VITALS: BP 168/70
[2018-04-04] MEDS: ATORVASTATIN 20 MG TAB PO SCH (22:02)
[2018-04-05 06:00] VITALS: BP 101/56
[2018-04-05] MEDS: SLF 3 ML SYR IV SCH ×2 (06:00→14:00)
[2018-04-05] MEDS: VITAMIN D 1,000 INTERNATIONAL UNITS TABLET PO SCH (09:00)
[2018-04-05] MEDS: CLOPIDOGREL 75 MG TAB PO SCH (09:00)
[2018-04-05] MEDS: LEVOTHYROXINE 25MCG TABLET (0.025MG) PO SCH (09:00)
--- NOTE | 2018-04-05 10:47 | IPNPDOC ---
Subjective Date Seen The patient was seen on 04/05/18. Subjective Chief Complaint/HPI The patient is a 82-year-old female admitted with a reason for visit of Disorganized Thought Process.. Events since last encounter Patient very agitated this am - wants to leave. Had to be convinced to go back to her room. States "my family is upset with me for signing my social security over to those kids" They put me here and they are giving me things to make me crazy" Constitutional: Denies: Chills, Fever Pulmonary: Denies: Dyspnea, Cough Cardiovascular: Denies: Chest Pain Gastrointestinal: Denies: Nausea, Vomiting, Abdominal Pain, Diarrhea, Constipation Objective Physical Examination General Exam: Positive: Alert, Other (Walking in hallway - Agitated, but not combative) Neck Exam: Positive: Supple Chest Exam: Positive: Clear to auscultation, Normal air movement; Negative: Rales, Rhonchi, Wheezing Heart Exam: Positive: Rate Normal, Regular Rhythm, Normal S2 Abdomen Exam: Positive: BS Hyperactive, Soft; Negative: Tenderness Skin Exam: Positive: Nl turgor and temperature Psych Exam: Negative: Mental status NL Assessment /Plan Assessment 04/05 CDT -- agree with below. Patient endorsed some paranoia that people were trying to steal her money. Denies abdominal discomfort. Today she is aware that her is . Problems (1) Vascular dementia Status: Chronic Problem Text: 04/05 - Appreciate Psych consult. Could consider trying Seroquel 25 mg at hs to help with the agitation and sundowning. I have a call out to her son to discuss risks involve with using this type of medication in the elderly. I spoke with her son the other day and he would ideally like to take her home, but they cannot handle her if she becomes agitated like she did on the day of admission. They are afraid she will hurt herself or they may hurt her when trying to restrain her. She responded well to Haldol on admission without significant sedation, however using this medication termite helper carries increased risk of in elderly patients. In the meantime, we will start process of placement, but if she remains stable (not agitated, wandering, sleeping through the night, her family may be able to take her home Addendum: 04/08/18 - I was able to get ahold of Aide's son and discussed risks and benefits of using Seroquel including increased risk of . He would like to try it while she is here in the hospital to see if it controls her paranoid delusions and agitation enough to allow for them to handle her at home. (Progressively worsening now with episodes of delusions. she lives with her son and his and children. Family unable to mange her at home when she is delusional because she becomes agitated and is up all night waking family members) (2) Delusion of Status: Resolved Problem Text: CT abd/pelvis negative from 03/28/18. + hysterectomy. (3) Abdominal pain Status: Resolved Problem Text: No abd pain today. Abd x-ray neg. Renal US neg Abd x-ray neg, Renal US unrevealing CT Abd/pelvis negative from 03/28. (4) Hypothyroid Status: Chronic Response to Treatment: Stable (5) CKD (chronic kidney disease), stage III Status: Chronic Response to Treatment: Stable Plan/VTE VTE Prophylaxis Ordered?: Yes (plavix, TEDS/SCDs) Disposition Admission denial VS, I&O, 24H, Fishbone Vital Signs/I&O Vital Signs Date Time Temp Pulse Resp B/P (MAP) Pulse Ox O2 Delivery O2 Flow Rate FiO2 04/05/18 06:00 97.3 63 20 101/56 (71) 95 Room Air I&O- Last 24 Hours up to 6 AM 04/05/18 06:00 Intake Total 1140 ml Output Total 0 ml Balance 1140 ml BERNARD SNYDER PA-C Apr 05, 2018 10:47 GLORIA EDUARDO DO Apr 05, 2018 16:37
[2018-04-05] MEDS: POTASSIUM CHLORIDE 10 MEQ SR TABLET PO SCH (11:26)
[2018-04-05] MEDS: FUROSEMIDE 20 MG TAB PO SCH (11:26)
[2018-04-05 14:00] VITALS: BP 131/75
[2018-04-05] MEDS: ATORVASTATIN 20 MG TAB PO SCH (20:14)
[2018-04-05 22:00] VITALS: BP 136/54
[2018-04-06 06:00] VITALS: BP 140/63
[2018-04-06] MEDS: FUROSEMIDE 20 MG TAB PO SCH (08:21)
[2018-04-06] MEDS: POTASSIUM CHLORIDE 10 MEQ SR TABLET PO SCH (08:21)
[2018-04-06] MEDS: CLOPIDOGREL 75 MG TAB PO SCH (08:21)
[2018-04-06] MEDS: VITAMIN D 1,000 INTERNATIONAL UNITS TABLET PO SCH (08:21)
[2018-04-06] MEDS: LEVOTHYROXINE 25MCG TABLET (0.025MG) PO SCH (08:21)
--- NOTE | 2018-04-06 10:54 | IPNPDOC ---
Subjective Date Seen The patient was seen on 04/06/18. Subjective Chief Complaint/HPI The patient is a 82-year-old female admitted with a reason for visit of Disorganized Thought Process.. Events since last encounter The patient reports she is doing very well today, however she is very suspicious and paranoid. She reports she is very disappointed me for lying to her face even though we basically were just getting started with her interview this morning. I'm not certain what she feels she knows, but I don't believe it's very firmly based in reality. I do not believe she is a reliable historian at this time. General: Reports: ROS Unobtainable Objective Physical Examination General Exam: Positive: Alert, No Acute Distress (lounging comfortably in a chair at the side of the bed with her feet propped up on the bed as if it were an ottoman), Other; Negative: Cooperative Eye Exam: Positive: EOMI; Negative: Sclera icteric ENT Exam: Positive: Atraumatic, Mucous membr. moist/pink Neck Exam: Positive: Supple Chest Exam: Positive: Clear to auscultation, Normal air movement; Negative: Rales, Rhonchi, Wheezing Heart Exam: Positive: Rate Normal, Regular Rhythm, Normal S2 Abdomen Exam: Positive: Normal bowel sounds, Soft; Negative: Tenderness Skin Exam: Positive: Nl turgor and temperature Psych Exam: Negative: Mental status NL, Memory Intact, Oriented x 3 Assessment /Plan Problems (1) Vascular dementia Status: Chronic Problem Text: 04/06 - She seems relatively stable if left alone. However interactions with others seems to agitate and wind her up a little bit. Much of this has to do because of her paranoia at this time. 04/05 - Appreciate Psych consult. Could consider trying Seroquel 25 mg at hs to help with the agitation and sundowning. I have a call out to her son to discuss risks involve with using this type of medication in the elderly. I spoke with her son the other day and he would ideally like to take her home, but they cannot handle her if she becomes agitated like she did on the day of admission. They are afraid she will hurt herself or they may hurt her when trying to restrain her. She responded well to Haldol on admission without significant sedation, however using this medication ocean transportation intermediary carries increased risk of in elderly patients. In the meantime, we will start process of placement, but if she remains stable (not agitated, wandering, sleeping through the night, her family may be able to take her home (Progressively worsening now with episodes of delusions. she lives with her son and his and children. Family unable to mange her at home when she is delusional because she becomes agitated and is up all night waking family members) (2) Hypothyroid Status: Chronic Response to Treatment: Stable Problem Text: Her TSH is well-controlled. Continue current regimen, monitor. (3) CKD (chronic kidney disease), stage III Status: Chronic Response to Treatment: Stable Problem Text: Her renal function is at baseline. (4) Delusion of Status: Resolved Problem Text: CT abd/pelvis negative from 03/28/18. + hysterectomy. (5) Abdominal pain Status: Resolved Problem Text: No abd pain today. Abd x-ray neg. Renal US neg Abd x-ray neg, Renal US unrevealing CT Abd/pelvis negative from 03/28. Plan/VTE VTE Prophylaxis Ordered?: Yes (plavix, TEDS/SCDs) VS, I&O, 24H, Fishbone Vital Signs/I&O Vital Signs Date Time Temp Pulse Resp B/P (MAP) Pulse Ox O2 Delivery O2 Flow Rate FiO2 04/06/18 06:00 96.7 85 20 140/63 (88) 96 Room Air I&O- Last 24 Hours up to 6 AM 04/06/18 06:00 Intake Total 1820 ml Output Total 0 ml Balance 1820 ml Wilson Dailey MD Apr 06, 2018 10:54 am
[2018-04-06 14:00] VITALS: BP 138/65
[2018-04-06] MEDS: ATORVASTATIN 20 MG TAB PO SCH (19:48)
[2018-04-06 22:00] VITALS: BP 143/68
[2018-04-07 06:00] VITALS: BP 147/65
[2018-04-07 07:07] LABS: HEMATOCRIT 34.1 % (36.0-47.0); HEMOGLOBIN 11.5 g/dl (12.0-15.5); MEAN CORPUSCULAR HEMOGLOBIN 30.6 pg (27.0-33.0); MEAN CORPUSCULAR HGB CONC 33.7 g/dl (32.0-36.5); MEAN CORPUSCULAR VOLUME 90.7 fl (80.0-96.0); PLATELET COUNT, AUTOMATED 351 10^3/uL (150-450); RED BLOOD COUNT 3.76 10^6/uL (4.00-5.40); WHITE BLOOD COUNT 9.9 10^3/uL (4.0-10.0)
[2018-04-07 07:45] LABS: ALBUMIN 3.7 GM/DL (3.2-5.2); CALCIUM LEVEL 8.7 MG/DL (8.8-10.2); CREATININE FOR GFR 1.17 MG/DL (0.55-1.30); GLOMERULAR FILTRATION RATE 47.4 (>32); PHOSPHORUS LEVEL 3.1 MG/DL (2.5-4.9); POTASSIUM SERUM 4.7 MEQ/L (3.5-5.1)
--- NOTE | 2018-04-07 08:47 | IPNPDOC ---
Subjective Date Seen The patient was seen on 04/07/18. Subjective Chief Complaint/HPI The patient is a 82-year-old female admitted with a reason for visit of Disorganized Thought Process.. Events since last encounter Initially I thought that today's interaction with Aide was going to go better. She greeted me pleasantly this morning and reported that she was doing just fine and had no complaints. She lamented the fact that she could not go for a wall in the nice fall weather. Then the conversation turned to the paranoid again. She reported that her son and [id number] who "put [her] in here" w ere killed last night. Since they were no longer in the picture, she wanted to know by whose authority/signature she was held here. While I can not be certain that this is not true, I imagine that if her next of kin were killed in a double murder last night, that we would have heard about it. She did share that she would like to live with her sister and she feels she would be safe there. I have no idea if this is a realistic option, but it is another angle that case management could explore. General: Reports: ROS Unobtainable Objective Physical Examination General Exam: Positive: Alert, No Acute Distress (sitting comfortably at the bedside in a chair); Negative: Cooperative Eye Exam: Positive: Conjunctiva & lids normal, EOMI; Negative: Sclera icteric ENT Exam: Positive: Atraumatic, Mucous membr. moist/pink Neck Exam: Positive: Supple; Negative: Lymphadenopathy Chest Exam: Positive: Clear to auscultation, Normal air movement; Negative: Rales, Rhonchi, Wheezing Heart Exam: Positive: Rate Normal, Regular Rhythm, Normal S2 Abdomen Exam: Positive: Normal bowel sounds, Soft; Negative: Tenderness Skin Exam: Positive: Nl turgor and temperature Psych Exam: Negative: Mental status NL, Memory Intact, Oriented x 3 Assessment /Plan Problems (1) Vascular dementia Status: Chronic Problem Text: 04/07 - She has the wander guard system in place. Psychiatry did recommend Seroquel 25mg PO qhs. It is not ordered yet, and I will hold off to see of we can continue to manage her with redirection as we have been. If this is needed for agitation or safety, I will order it then. 04/06 - She seems relatively stable if left alone. However interactions with others seems to agitate and wind her up a little bit. Much of this has to do because of her paranoia at this time. 04/05 - Appreciate Psych consult. Could consider trying Seroquel 25 mg at hs to help with the agitation and sundowning. I have a call out to her son to discuss risks involve with using this type of medication in the elderly. I spoke with her son the other day and he would ideally like to take her home, but they cannot handle her if she becomes agitated like she did on the day of admission. They are afraid she will hurt herself or they may hurt her when trying to restrain her. She responded well to Haldol on admission without significant sedation, however using this medication care home carries increased risk of in elderly patients. In the meantime, we will start process of placement, but if she remains stable (not agitated, wandering, sleeping through the night, her family may be able to take her home (Progressively worsening now with episodes of delusions. she lives with her son and his and children. Family unable to mange her at home when she is delusional because she becomes agitated and is up all night waking family members) (2) Hypothyroid Status: Chronic Response to Treatment: Stable Problem Text: Her TSH is well-controlled. Continue current regimen, monitor. (3) CKD (chronic kidney disease), stage III Status: Chronic Response to Treatment: Stable Problem Text: Her renal function is at baseline. (4) Delusion of Status: Resolved Problem Text: CT abd/pelvis negative from 03/28/18. + hysterectomy. (5) Abdominal pain Status: Resolved Problem Text: No abd pain today. Abd x-ray neg. Renal US neg Abd x-ray neg, Renal US unrevealing CT Abd/pelvis negative from 03/28. Plan/VTE VTE Prophylaxis Ordered?: Yes (plavix, TEDS/SCDs) Plan Anticipated Discharge: Halfway VS, I&O, 24H, Fishbone Vital Signs/I&O Vital Signs Date Time Temp Pulse Resp B/P (MAP) Pulse Ox O2 Delivery O2 Flow Rate FiO2 04/07/18 06:00 97.6 79 20 147/65 (92) 96 Room Air I&O- Last 24 Hours up to 6 AM 04/07/18 05:59 Intake Total 2020 ml Output Total 0 ml Balance 2020 ml Laboratory Data 24H LABS Laboratory Tests 2 04/07/18 06:31: Nucleated Red Blood Cells % (auto) 0.0, Blood Urea Nitrogen 27H, Creatinine 1.17, Sodium Level 138, Potassium Level 4.7, Chloride Level 105, Carbon Dioxide Level 22, Anion Gap 11, Glomerular Filtration Rate 47.4, Calcium Level 8.7L, Phosphorus Level 3.1, Albumin 3.7 CBC/BMP Laboratory Tests 04/07/18 06:31 Red Blood Count 3.76 L, Mean Corpuscular Volume 90.7, Mean Corpuscular Hemoglobin 30.6, Mean Corpuscular Hemoglobin Concent 33.7, Red Cell Distribution Width 12.8, Anion Gap 11 Wilson Dailey MD Apr 07, 2018 08:47
[2018-04-07] MEDS: FUROSEMIDE 20 MG TAB PO SCH (08:57)
[2018-04-07] MEDS: POTASSIUM CHLORIDE 10 MEQ SR TABLET PO SCH (08:58)
[2018-04-07] MEDS: CLOPIDOGREL 75 MG TAB PO SCH (08:58)
[2018-04-07] MEDS: LEVOTHYROXINE 25MCG TABLET (0.025MG) PO SCH (08:59)
[2018-04-07] MEDS: VITAMIN D 1,000 INTERNATIONAL UNITS TABLET PO SCH (08:59)
[2018-04-07 14:00] VITALS: BP 128/64
[2018-04-07] MEDS: ATORVASTATIN 20 MG TAB PO SCH (20:31)
[2018-04-07] MEDS ORDERED: QUEtiapine FUMARATE 25 MG TAB PO SCH (21:00)
[2018-04-07 22:00] VITALS: BP 132/68
[2018-04-08 06:00] VITALS: BP 154/69
[2018-04-08] MEDS: CLOPIDOGREL 75 MG TAB PO SCH (12:33)
[2018-04-08] MEDS: LEVOTHYROXINE 25MCG TABLET (0.025MG) PO SCH (12:33)
[2018-04-08] MEDS: POTASSIUM CHLORIDE 10 MEQ SR TABLET PO SCH (12:33)
[2018-04-08] MEDS: VITAMIN D 1,000 INTERNATIONAL UNITS TABLET PO SCH (12:33)
[2018-04-08] MEDS: FUROSEMIDE 20 MG TAB PO SCH (12:33)
[2018-04-08 20:00] VITALS: BP 137/71
[2018-04-08] MEDS: ATORVASTATIN 20 MG TAB PO SCH (22:39)
[2018-04-08] MEDS: QUEtiapine FUMARATE 12.5 MG HALF-TAB PO SCH (22:40)
[2018-04-09 06:00] VITALS: BP 144/67
[2018-04-09] MEDS: LEVOTHYROXINE 25MCG TABLET (0.025MG) PO SCH (09:00)
[2018-04-09] MEDS: VITAMIN D 1,000 INTERNATIONAL UNITS TABLET PO SCH (09:00)
[2018-04-09] MEDS: FUROSEMIDE 20 MG TAB PO SCH (09:00)
[2018-04-09] MEDS: CLOPIDOGREL 75 MG TAB PO SCH (09:00)
[2018-04-09] MEDS: POTASSIUM CHLORIDE 10 MEQ SR TABLET PO SCH (09:00)
[2018-04-09 09:45] VITALS: BP 118/54
[2018-04-09] MEDS: QUEtiapine FUMARATE 12.5 MG HALF-TAB PO SCH (18:42)
[2018-04-09] MEDS: ATORVASTATIN 20 MG TAB PO SCH (20:21)
[2018-04-10 06:00] VITALS: BP 160/72
[2018-04-10] MEDS: LEVOTHYROXINE 25MCG TABLET (0.025MG) PO SCH (09:07)
[2018-04-10] MEDS: CLOPIDOGREL 75 MG TAB PO SCH (09:07)
[2018-04-10] MEDS: FUROSEMIDE 20 MG TAB PO SCH (09:07)
[2018-04-10] MEDS: VITAMIN D 1,000 INTERNATIONAL UNITS TABLET PO SCH (09:07)
[2018-04-10] MEDS: POTASSIUM CHLORIDE 10 MEQ SR TABLET PO SCH (09:08)
[2018-04-10] MEDS: QUEtiapine FUMARATE 12.5 MG HALF-TAB PO SCH (18:45)
[2018-04-10] MEDS: ATORVASTATIN 20 MG TAB PO SCH (20:18)
[2018-04-11 06:00] VITALS: BP 118/68
[2018-04-11] MEDS: LEVOTHYROXINE 25MCG TABLET (0.025MG) PO SCH (10:23)
[2018-04-11] MEDS: POTASSIUM CHLORIDE 10 MEQ SR TABLET PO SCH (10:23)
[2018-04-11] MEDS: VITAMIN D 1,000 INTERNATIONAL UNITS TABLET PO SCH (10:23)
[2018-04-11] MEDS: CLOPIDOGREL 75 MG TAB PO SCH (10:23)
[2018-04-11] MEDS: FUROSEMIDE 20 MG TAB PO SCH (10:24)
--- NOTE | 2018-04-11 14:08 | IPN ---
DATE: 04/11/2018 Aide's case was discussed with the nursing staff. She was elbowing people and agitated this morning. She is up in her room otherwise. Our goal is to try to find a dose of Seroquel that will control her behavior sufficient for her to go home that would not leave her so sedated that she is unable to achieve this. I am skeptical we are going to find this balance but towards this and I will increase the Seroquel to 12.5 mg twice a day hoping to find the right balance between controlling her behavior and not creating excessive sedation.
[2018-04-11] MEDS: ATORVASTATIN 20 MG TAB PO SCH (20:06)
[2018-04-11] MEDS: QUEtiapine FUMARATE 12.5 MG HALF-TAB PO SCH (20:06)
[2018-04-12 06:00] VITALS: BP 173/74
[2018-04-12] MEDS: VITAMIN D 1,000 INTERNATIONAL UNITS TABLET PO SCH (10:30)
[2018-04-12] MEDS: LEVOTHYROXINE 25MCG TABLET (0.025MG) PO SCH (10:30)
[2018-04-12] MEDS: FUROSEMIDE 20 MG TAB PO SCH (10:30)
[2018-04-12] MEDS: CLOPIDOGREL 75 MG TAB PO SCH (10:30)
[2018-04-12] MEDS: POTASSIUM CHLORIDE 10 MEQ SR TABLET PO SCH (10:30)
[2018-04-12] MEDS: QUEtiapine FUMARATE 12.5 MG HALF-TAB PO SCH ×2 (10:30→20:11)
[2018-04-12] MEDS: ATORVASTATIN 20 MG TAB PO SCH (20:11)
[2018-04-13 06:00] VITALS: BP 150/74
[2018-04-13] MEDS: LEVOTHYROXINE 25MCG TABLET (0.025MG) PO SCH (12:17)
[2018-04-13] MEDS: QUEtiapine FUMARATE 12.5 MG HALF-TAB PO SCH ×2 (12:17→20:30)
[2018-04-13] MEDS: CLOPIDOGREL 75 MG TAB PO SCH (12:18)
[2018-04-13] MEDS: VITAMIN D 1,000 INTERNATIONAL UNITS TABLET PO SCH (12:19)
[2018-04-13] MEDS: POTASSIUM CHLORIDE 10 MEQ SR TABLET PO SCH (12:19)
[2018-04-13] MEDS: FUROSEMIDE 20 MG TAB PO SCH (12:19)
[2018-04-13] MEDS: ATORVASTATIN 20 MG TAB PO SCH (20:30)
[2018-04-14 06:00] VITALS: BP 127/60
[2018-04-14] MEDS: FUROSEMIDE 20 MG TAB PO SCH (11:56)
[2018-04-14] MEDS: QUEtiapine FUMARATE 12.5 MG HALF-TAB PO SCH ×2 (11:56→20:21)
[2018-04-14] MEDS: POTASSIUM CHLORIDE 10 MEQ SR TABLET PO SCH (11:58)
[2018-04-14] MEDS: LEVOTHYROXINE 25MCG TABLET (0.025MG) PO SCH (11:59)
[2018-04-14] MEDS: CLOPIDOGREL 75 MG TAB PO SCH (11:59)
[2018-04-14] MEDS: VITAMIN D 1,000 INTERNATIONAL UNITS TABLET PO SCH (11:59)
[2018-04-14] MEDS: ATORVASTATIN 20 MG TAB PO SCH (20:21)
[2018-04-14 22:00] VITALS: BP 140/66
[2018-04-15 06:00] VITALS: BP 128/60
[2018-04-15] MEDS: CLOPIDOGREL 75 MG TAB PO SCH (13:08)
[2018-04-15] MEDS: VITAMIN D 1,000 INTERNATIONAL UNITS TABLET PO SCH (13:08)
[2018-04-15] MEDS: QUEtiapine FUMARATE 12.5 MG HALF-TAB PO SCH ×2 (13:09→20:38)
[2018-04-15] MEDS: LEVOTHYROXINE 25MCG TABLET (0.025MG) PO SCH (13:09)
[2018-04-15] MEDS: POTASSIUM CHLORIDE 10 MEQ SR TABLET PO SCH (13:09)
[2018-04-15] MEDS: FUROSEMIDE 20 MG TAB PO SCH (13:09)
[2018-04-15] MEDS: ATORVASTATIN 20 MG TAB PO SCH (20:38)
[2018-04-16 06:00] VITALS: BP 142/65
[2018-04-16] MEDS: LEVOTHYROXINE 25MCG TABLET (0.025MG) PO SCH ×2 (08:40→09:00)
[2018-04-16] MEDS: QUEtiapine FUMARATE 12.5 MG HALF-TAB PO SCH ×3 (08:40→21:00)
[2018-04-16] MEDS: CLOPIDOGREL 75 MG TAB PO SCH ×2 (08:41→09:00)
[2018-04-16] MEDS: FUROSEMIDE 20 MG TAB PO SCH ×2 (08:41→09:00)
[2018-04-16] MEDS: POTASSIUM CHLORIDE 10 MEQ SR TABLET PO SCH ×2 (08:41→09:00)
[2018-04-16] MEDS: VITAMIN D 1,000 INTERNATIONAL UNITS TABLET PO SCH ×2 (08:41→09:00)
[2018-04-16] MEDS: ATORVASTATIN 20 MG TAB PO SCH (21:00)
[2018-04-17 06:00] VITALS: BP 170/73
[2018-04-17] MEDS: CLOPIDOGREL 75 MG TAB PO SCH (11:16)
[2018-04-17] MEDS: VITAMIN D 1,000 INTERNATIONAL UNITS TABLET PO SCH (11:16)
[2018-04-17] MEDS: QUEtiapine FUMARATE 12.5 MG HALF-TAB PO SCH ×3 (11:33→21:00)
[2018-04-17] MEDS: LEVOTHYROXINE 25MCG TABLET (0.025MG) PO SCH (11:33)
[2018-04-17] MEDS: POTASSIUM CHLORIDE 10 MEQ SR TABLET PO SCH (11:33)
[2018-04-17] MEDS: FUROSEMIDE 20 MG TAB PO SCH (11:33)
[2018-04-17] MEDS: ATORVASTATIN 20 MG TAB PO SCH (20:58)
[2018-04-18 06:00] VITALS: BP 172/71
[2018-04-18] MEDS: FUROSEMIDE 20 MG TAB PO SCH (09:00)
[2018-04-18] MEDS: VITAMIN D 1,000 INTERNATIONAL UNITS TABLET PO SCH (09:00)
[2018-04-18] MEDS: CLOPIDOGREL 75 MG TAB PO SCH (09:00)
[2018-04-18] MEDS: QUEtiapine FUMARATE 12.5 MG HALF-TAB PO SCH ×2 (09:00→20:30)
[2018-04-18] MEDS: LEVOTHYROXINE 25MCG TABLET (0.025MG) PO SCH (09:00)
[2018-04-18] MEDS: POTASSIUM CHLORIDE 10 MEQ SR TABLET PO SCH (09:00)
--- NOTE | 2018-04-18 09:39 | IPNPDOC ---
Subjective Date Seen The patient was seen on 04/18/18. Subjective Chief Complaint/HPI Pt this morning without new concerns. She was initially quite agitated with me for waking her but then willingly conversed after she settled down. She states that she is feeling fine and that she slept well until I woke her this morning. Nursing is without new concerns. She has been mostly pleasant the last few days, she only becomes agitated at the mention of her son, Lobo. General: Denies: Fatigue Constitutional: Denies: Chills, Fever Skin: Denies: Rash Pulmonary: Denies: Dyspnea, Cough Cardiovascular: Denies: Chest Pain, Palpitations Gastrointestinal: Denies: Nausea, Vomiting Neurological: Denies: Weakness Psych: Reports: Memory Issues Objective Physical Examination General Exam: Positive: Alert, No Acute Distress (I wakened her and she was initially agitated but settled right now and conversed with. ) Eye Exam: Positive: EOMI; Negative: Sclera icteric ENT Exam: Positive: Atraumatic, Mucous membr. moist/pink Neck Exam: Positive: Supple Chest Exam: Positive: Clear to auscultation, Normal air movement; Negative: Rales, Rhonchi, Wheezing Heart Exam: Positive: Rate Normal, Regular Rhythm, Normal S2 Abdomen Exam: Positive: Normal bowel sounds, Soft; Negative: Tenderness Extremity Exam: Negative: Edema (alert, oriented to place, person, president, not to the year.) Skin Exam: Positive: Nl turgor and temperature Psych Exam: Negative: Mental status NL Assessment /Plan Problems (1) Vascular dementia Status: Chronic Problem Text: 04/18 after meeting with the patient this morning is appears as though she remains able to make her own decisions. We talked about her lack of a HCP, she advised that she simply had not been able to decide who she should appoint to make her decisions as she doesn't have much family. States that her son and his are not options for her and her sister Danette she doesn't believe would be up for the job. She states that she does not want to be resuscitated however. She does not want to be kept alive on machines and if she is no longer breathing she doesn't want any machines to change that. I inquired with her what she would want done if her heart stopped beating and she was very clear that she wanted nothing done. I asked her if we could complete a form noting such. She states that we could but she didn't want to sign up. I asked her if that was because she was unsure of her decision and she said absolutely not. I left the room to obtain a MOLST form as well as the Charge Nurse Lorraine. We held this conversation with Aide again where she very clearly verbalized her wish not to be resuscitated. The MOLST form was therefore completed with 2 witnesses and no patient signature. Pt is now DNR. 04/05 - Appreciate Psych consult. Could consider trying Seroquel 25 mg at hs to help with the agitation and sundowning. I have a call out to her son to discuss risks involve with using this type of medication in the elderly. I spoke with her son the other day and he would ideally like to take her home, but they cannot handle her if she becomes agitated like she did on the day of admission. They are afraid she will hurt herself or they may hurt her when trying to restrain her. She responded well to Haldol on admission without significant sedation, however using this medication half-way carries increased risk of in elderly patients. In the meantime, we will start process of placement, but if she remains stable (not agitated, wandering, sleeping through the night, her family may be able to take her home Addendum: 04/08/18 - I was able to get ahold of Aide's son and discussed risks and benefits of using Seroquel including increased risk of . He would like to try it while she is here in the hospital to see if it controls her paranoid delusions and agitation enough to allow for them to handle her at home. (Progressively worsening now with episodes of delusions. she lives with her son and his and children. Family unable to mange her at home when she is delusional because she becomes agitated and is up all night waking family members) (2) Delusion of Status: Resolved Problem Text: CT abd/pelvis negative from 03/28/18. + hysterectomy. (3) Abdominal pain Status: Resolved Problem Text: No abd pain today. Abd x-ray neg. Renal US neg Abd x-ray neg, Renal US unrevealing CT Abd/pelvis negative from 03/28. (4) Hypothyroid Status: Chronic Response to Treatment: Stable (5) CKD (chronic kidney disease), stage III Status: Chronic Response to Treatment: Stable Plan/VTE VTE Prophylaxis Ordered?: Yes (plavix, TEDS/SCDs) Plan Anticipated Discharge: Prison VS, I&O, 24H, Fishbone Vital Signs/I&O Vital Signs Date Time Temp Pulse Resp B/P (MAP) Pulse Ox O2 Delivery O2 Flow Rate FiO2 04/18/18 06:00 97.8 60 16 172/71 (104) 93 Room Air I&O- Last 24 Hours up to 6 AM 04/18/18 05:59 Intake Total 1320 ml Output Total 0 ml Balance 1320 ml BRIANNA MO PA-C Apr 18, 2018 09:39
[2018-04-18] MEDS: ATORVASTATIN 20 MG TAB PO SCH (20:29)
[2018-04-19 06:00] VITALS: BP 148/72
[2018-04-19] MEDS: POTASSIUM CHLORIDE 10 MEQ SR TABLET PO SCH (09:00)
[2018-04-19] MEDS: CLOPIDOGREL 75 MG TAB PO SCH (09:00)
[2018-04-19] MEDS: LEVOTHYROXINE 25MCG TABLET (0.025MG) PO SCH (09:00)
[2018-04-19] MEDS: VITAMIN D 1,000 INTERNATIONAL UNITS TABLET PO SCH (09:00)
[2018-04-19] MEDS: QUEtiapine FUMARATE 12.5 MG HALF-TAB PO SCH ×2 (09:00→20:13)
[2018-04-19] MEDS: FUROSEMIDE 20 MG TAB PO SCH (09:00)
[2018-04-19 20:00] VITALS: BP 135/62
[2018-04-19] MEDS: ATORVASTATIN 20 MG TAB PO SCH (20:13)
[2018-04-20 06:00] VITALS: BP 130/62
[2018-04-20] MEDS: FUROSEMIDE 20 MG TAB PO SCH (08:50)
[2018-04-20] MEDS: VITAMIN D 1,000 INTERNATIONAL UNITS TABLET PO SCH (08:50)
[2018-04-20] MEDS: POTASSIUM CHLORIDE 10 MEQ SR TABLET PO SCH (08:51)
[2018-04-20] MEDS: CLOPIDOGREL 75 MG TAB PO SCH (08:51)
[2018-04-20] MEDS: LEVOTHYROXINE 25MCG TABLET (0.025MG) PO SCH (08:51)
[2018-04-20] MEDS: QUEtiapine FUMARATE 12.5 MG HALF-TAB PO SCH ×2 (08:51→21:00)
[2018-04-20] MEDS: ATORVASTATIN 20 MG TAB PO SCH (22:16)
[2018-04-21 06:00] VITALS: BP 140/70
[2018-04-21] MEDS: FUROSEMIDE 20 MG TAB PO SCH (08:59)
[2018-04-21] MEDS: VITAMIN D 1,000 INTERNATIONAL UNITS TABLET PO SCH (08:59)
[2018-04-21] MEDS: LEVOTHYROXINE 25MCG TABLET (0.025MG) PO SCH (08:59)
[2018-04-21] MEDS: CLOPIDOGREL 75 MG TAB PO SCH (09:00)
[2018-04-21] MEDS: QUEtiapine FUMARATE 12.5 MG HALF-TAB PO SCH ×2 (09:00→21:00)
[2018-04-21] MEDS: POTASSIUM CHLORIDE 10 MEQ SR TABLET PO SCH (09:00)
[2018-04-21] MEDS: ATORVASTATIN 20 MG TAB PO SCH (21:53)
[2018-04-22 06:00] VITALS: BP 150/62
[2018-04-22] MEDS: QUEtiapine FUMARATE 12.5 MG HALF-TAB PO SCH ×2 (09:00→21:00)
[2018-04-22] MEDS: FUROSEMIDE 20 MG TAB PO SCH (11:44)
[2018-04-22] MEDS: POTASSIUM CHLORIDE 10 MEQ SR TABLET PO SCH (11:44)
[2018-04-22] MEDS: LEVOTHYROXINE 25MCG TABLET (0.025MG) PO SCH (11:45)
[2018-04-22] MEDS: VITAMIN D 1,000 INTERNATIONAL UNITS TABLET PO SCH (11:45)
[2018-04-22] MEDS: CLOPIDOGREL 75 MG TAB PO SCH (11:45)
[2018-04-22] MEDS: ATORVASTATIN 20 MG TAB PO SCH (21:00)
[2018-04-23 06:00] VITALS: BP 142/70
[2018-04-23] MEDS: QUEtiapine FUMARATE 12.5 MG HALF-TAB PO SCH ×3 (09:00→21:00)
[2018-04-23] MEDS: POTASSIUM CHLORIDE 10 MEQ SR TABLET PO SCH (14:07)
[2018-04-23] MEDS: VITAMIN D 1,000 INTERNATIONAL UNITS TABLET PO SCH (14:08)
[2018-04-23] MEDS: LEVOTHYROXINE 25MCG TABLET (0.025MG) PO SCH (14:08)
[2018-04-23] MEDS: FUROSEMIDE 20 MG TAB PO SCH (14:08)
[2018-04-23] MEDS: CLOPIDOGREL 75 MG TAB PO SCH (14:08)
[2018-04-23] MEDS: ATORVASTATIN 20 MG TAB PO SCH (21:00)
[2018-04-24 06:00] VITALS: BP 168/78
[2018-04-24] MEDS: CLOPIDOGREL 75 MG TAB PO SCH (10:58)
[2018-04-24] MEDS: VITAMIN D 1,000 INTERNATIONAL UNITS TABLET PO SCH (10:58)
[2018-04-24] MEDS: FUROSEMIDE 20 MG TAB PO SCH (10:59)
[2018-04-24] MEDS: POTASSIUM CHLORIDE 10 MEQ SR TABLET PO SCH (10:59)
[2018-04-24] MEDS: QUEtiapine FUMARATE 12.5 MG HALF-TAB PO SCH ×2 (10:59→21:00)
[2018-04-24] MEDS: LEVOTHYROXINE 25MCG TABLET (0.025MG) PO SCH (11:00)
[2018-04-24 12:34] LABS: HEMATOCRIT 33.5 % (36.0-47.0); MEAN CORPUSCULAR HEMOGLOBIN 30.2 pg (27.0-33.0); MEAN CORPUSCULAR HGB CONC 32.8 g/dl (32.0-36.5); PLATELET COUNT, AUTOMATED 365 10^3/uL (150-450); RED BLOOD COUNT 3.64 10^6/uL (4.00-5.40); WHITE BLOOD COUNT 9.3 10^3/uL (4.0-10.0)
[2018-04-24 13:03] LABS: ALBUMIN 3.4 GM/DL (3.2-5.2); BILIRUBIN,TOTAL 0.4 MG/DL (0.2-1.0); CALCIUM LEVEL 8.8 MG/DL (8.8-10.2); CREATININE FOR GFR 1.02 MG/DL (0.55-1.30); GLOMERULAR FILTRATION RATE 55.5 (>32); POTASSIUM SERUM 4.4 MEQ/L (3.5-5.1); TOTAL PROTEIN 6.7 GM/DL (6.4-8.2)
[2018-04-24] MEDS: ATORVASTATIN 20 MG TAB PO SCH ×2 (21:00→21:44)
[2018-04-25 06:00] VITALS: BP 144/70
[2018-04-25] MEDS: QUEtiapine FUMARATE 12.5 MG HALF-TAB PO SCH ×2 (09:00→20:08)
[2018-04-25] MEDS: CLOPIDOGREL 75 MG TAB PO SCH (09:00)
[2018-04-25] MEDS: LEVOTHYROXINE 25MCG TABLET (0.025MG) PO SCH (09:00)
[2018-04-25] MEDS: FUROSEMIDE 20 MG TAB PO SCH (09:00)
[2018-04-25] MEDS: VITAMIN D 1,000 INTERNATIONAL UNITS TABLET PO SCH (09:47)
[2018-04-25] MEDS: POTASSIUM CHLORIDE 10 MEQ SR TABLET PO SCH (09:48)
[2018-04-25] MEDS: ATORVASTATIN 20 MG TAB PO SCH (20:06)
[2018-04-26 06:00] VITALS: BP 184/82
[2018-04-26] MEDS: VITAMIN D 1,000 INTERNATIONAL UNITS TABLET PO SCH (11:30)
[2018-04-26] MEDS: POTASSIUM CHLORIDE 10 MEQ SR TABLET PO SCH (11:30)
[2018-04-26] MEDS: CLOPIDOGREL 75 MG TAB PO SCH (11:31)
[2018-04-26] MEDS: LEVOTHYROXINE 25MCG TABLET (0.025MG) PO SCH (11:44)
[2018-04-26] MEDS: FUROSEMIDE 20 MG TAB PO SCH (11:44)
[2018-04-26] MEDS: QUEtiapine FUMARATE 12.5 MG HALF-TAB PO SCH ×2 (11:44→21:00)
[2018-04-26] MEDS: ATORVASTATIN 20 MG TAB PO SCH (22:02)
--- NOTE | 2018-04-26 22:08 | MHCR ---
DATE OF CONSULTATION: 04/04/2018 HISTORY OF PRESENT ILLNESS: This is an 82-year-old white woman who I was asked to reevaluate. The patient presented with what appeared to be delusions of being and was complaining of abdominal pain. She was hospitalized and discharged home. She was treated with some Haldol while in the hospital but discharged on no psychotropic medications. She has now returned to the hospital. The family brought her in stating that she was increasingly agitated and she was physically aggressive with the family. She was staying up at night and keeping everybody up at night. At this point, it seems that the delusions of being that she had during her hospitalization a few days ago have resolved. When I asked her if she called thinking that she was , she stated, "It was a dream." She admits, "I always wanted to have more children." She went on to say that she was only able to have a son. She did appear to have some moments of confusion, such as when she said that her son and were "back there," but then later she told me that her was . She was stating that her mood was good. I did not elicit any mood symptoms. She however kept stating that she did not know why she was in the hospital. When I was trying to assess for orientation, she was telling me that she was in a motel. When I clarified that this was the hospital, she stated, "the decorations are a lot like a motel." She was able to tell me that she lives with her grandson and his family. PAST PSYCHIATRIC HISTORY: She has no history of psychiatric treatment. She is on no psychotropic medications. She denies any suicidal attempts in the past. FAMILY HISTORY: She denied any psychiatric illness in her family. MEDICAL HISTORY: The patient has chronic kidney disease, hypothyroidism, and vascular dementia. SUBSTANCE ABUSE HISTORY: She denies that she has ever had any problems with alcohol or drugs. MENTAL STATUS EXAMINATION: She is alert and oriented to person and to time, but not to place. She is pleasant, cooperative, verbally spontaneous. There is no formal thought disorder noted. She says that her mood is fine. Affect is full range and appropriate. She was not suicidal or homicidal. It does seem that she might have had some delusions about her being alive, but at another point she was able to say that the had . The patient was administered the mini-mental examination and actually she obtained a score of 22, which puts her in the mild dementia category. Her concentration was fairly good. She could spell the word "world" backwards. She could only remember one out of three words in 5 minutes, however. Insight and judgment fair. Again, it is not clear if the patient was having some delusions about her being alive at one point. DIAGNOSIS: Vascular dementia with possible delusions. TREATMENT PLAN: At this point, we will monitor the patient. So far it seems that this admission she has been fairly calm. She has been given Haldol 0.5 mg only once. She is no longer having the delusion about being . It does seem that she has some confusion where she thinks her may be alive and then recognizes that he is not. If the patient continues to be delusional or becomes more agitated, I recommend a low dose of Seroquel, such as 25 mg at night. This is sedating and so maybe it will help her sleep better and due to the fact that it can help with agitation. Of course, we need to consider the risk of stroke in elderly patients with dementia with the Seroquel. Therefore, it is important to weigh the risk and the benefits of treatment and this is why I am saying to observe her first. Please reconsult if needed.
[2018-04-27 06:00] VITALS: BP 156/74
[2018-04-27] MEDS: VITAMIN D 1,000 INTERNATIONAL UNITS TABLET PO SCH (09:39)
[2018-04-27] MEDS: CLOPIDOGREL 75 MG TAB PO SCH (09:40)
[2018-04-27] MEDS: POTASSIUM CHLORIDE 10 MEQ SR TABLET PO SCH (09:40)
[2018-04-27] MEDS: LEVOTHYROXINE 25MCG TABLET (0.025MG) PO SCH (09:41)
[2018-04-27] MEDS: QUEtiapine FUMARATE 12.5 MG HALF-TAB PO SCH ×2 (09:41→21:00)
[2018-04-27] MEDS: FUROSEMIDE 20 MG TAB PO SCH (09:41)
[2018-04-27] MEDS: ATORVASTATIN 20 MG TAB PO SCH (21:00)
[2018-04-27 22:00] VITALS: BP 163/80
[2018-04-28 06:00] VITALS: BP 152/85
[2018-04-28] MEDS: LEVOTHYROXINE 25MCG TABLET (0.025MG) PO SCH (09:07)
[2018-04-28] MEDS: CLOPIDOGREL 75 MG TAB PO SCH (09:07)
[2018-04-28] MEDS: FUROSEMIDE 20 MG TAB PO SCH (09:07)
[2018-04-28] MEDS: POTASSIUM CHLORIDE 10 MEQ SR TABLET PO SCH (09:07)
[2018-04-28] MEDS: QUEtiapine FUMARATE 12.5 MG HALF-TAB PO SCH ×2 (09:07→21:00)
[2018-04-28] MEDS: VITAMIN D 1,000 INTERNATIONAL UNITS TABLET PO SCH (09:07)
[2018-04-28] MEDS: ATORVASTATIN 20 MG TAB PO SCH (21:00)
[2018-04-29 06:00] VITALS: BP 149/67
[2018-04-29] MEDS: CLOPIDOGREL 75 MG TAB PO SCH (08:57)
[2018-04-29] MEDS: POTASSIUM CHLORIDE 10 MEQ SR TABLET PO SCH (08:58)
[2018-04-29] MEDS: QUEtiapine FUMARATE 12.5 MG HALF-TAB PO SCH ×2 (08:58→21:00)
[2018-04-29] MEDS: LEVOTHYROXINE 25MCG TABLET (0.025MG) PO SCH (08:58)
[2018-04-29] MEDS: FUROSEMIDE 20 MG TAB PO SCH (08:58)
[2018-04-29] MEDS: VITAMIN D 1,000 INTERNATIONAL UNITS TABLET PO SCH (08:58)
--- NOTE | 2018-04-29 09:26 | IPNPDOC ---
Subjective Date Seen The patient was seen on 04/29/18. Subjective Chief Complaint/HPI Pt this morning without new concerns. She wants to go home to an apt to live alone. She doesn't want to go back to live with her son and is refusing to cooperate to obtain paperwork for placement. General: Denies: Fatigue Constitutional: Denies: Chills, Fever ENT: Denies: Head Aches Pulmonary: Denies: Dyspnea, Cough Cardiovascular: Denies: Chest Pain, Palpitations Gastrointestinal: Denies: Nausea, Vomiting, Diarrhea Neurological: Denies: Weakness Psych: Reports: Memory Issues Objective Physical Examination General Exam: Positive: Alert, No Acute Distress (sitting in bedside chair, pleasant and appropriate although speech is somewhat pressured.) Eye Exam: Positive: EOMI; Negative: Sclera icteric ENT Exam: Positive: Atraumatic, Mucous membr. moist/pink Neck Exam: Positive: Supple Chest Exam: Positive: Clear to auscultation, Normal air movement; Negative: Rales, Rhonchi, Wheezing Heart Exam: Positive: Rate Normal, Regular Rhythm, Normal S2 Abdomen Exam: Positive: Normal bowel sounds, Soft; Negative: Tenderness Extremity Exam: Negative: Edema Skin Exam: Positive: Nl turgor and temperature Psych Exam: Negative: Mental status NL Assessment /Plan Problems (1) Vascular dementia Status: Chronic Problem Text: 04/29 pt appropriate this morning. She is adament on going home to an apt to live alone. Refusing to work with staff to coordinate placement options. 04/18 after meeting with the patient this morning is appears as though she remains able to make her own decisions. We talked about her lack of a HCP, she advised that she simply had not been able to decide who she should appoint to make her decisions as she doesn't have much family. States that her son and his are not options for her and her sister Danette she doesn't believe would be up for the job. She states that she does not want to be resuscitated however. She does not want to be kept alive on machines and if she is no longer breathing she doesn't want any machines to change that. I inquired with her what she would want done if her heart stopped beating and she was very clear that she wanted nothing done. I asked her if we could complete a form noting such. She states that we could but she didn't want to sign up. I asked her if that was because she was unsure of her decision and she said absolutely not. I left the room to obtain a MOLST form as well as the Charge Nurse Lorraine. We held this c onversation with Aide again where she very clearly verbalized her wish not to be resuscitated. The MOLST form was therefore completed with 2 witnesses and no patient signature. Pt is now DNR. 04/05 - Appreciate Psych consult. Could consider trying Seroquel 25 mg at hs to help with the agitation and sundowning. I have a call out to her son to discuss risks involve with using this type of medication in the elderly. I spoke with her son the other day and he would ideally like to take her home, but they cannot handle her if she becomes agitated like she did on the day of admission. They are afraid she will hurt herself or they may hurt her when trying to restrain her. She responded well to Haldol on admission without significant sedation, however using this medication senior care carries increased risk of in elderly patients. In the meantime, we will start process of kari don, but if she remains stable (not agitated, wandering, sleeping through the night, her family may be able to take her home Addendum: 04/08/18 - I was able to get ahold of Aide's son and discussed risks and benefits of using Seroquel including increased risk of . He would like to try it while she is here in the hospital to see if it controls her paranoid delusions and agitation enough to allow for them to handle her at home. (Progressively worsening now with episodes of delusions. she lives with her son and his and children. Family unable to mange her at home when she is delusional because she becomes agitated and is up all night waking family members) (2) Delusion of Status: Resolved Problem Text: CT abd/pelvis negative from 03/28/18. + hysterectomy. (3) Abdominal pain Status: Resolved Problem Text: No abd pain today. Abd x-ray neg. Renal US neg Abd x-ray neg, Renal US unrevealing CT Abd/pelvis negative from 03/28. (4) Hypothyroid Status: Chronic Response to Treatment: Stable (5) CKD (chronic kidney disease), stage III Status: Chronic Response to Treatment: Stable Plan/VTE VTE Prophylaxis Ordered?: Yes (plavix, TEDS/SCDs) Plan Anticipated Discharge: Custodial VS, I&O, 24H, Fishbone Vital Signs/I&O Vital Signs Date Time Temp Pulse Resp B/P (MAP) Pulse Ox O2 Delivery O2 Flow Rate FiO2 04/29/18 06:00 98.1 60 20 149/67 (94) 97 Room Air I&O- Last 24 Hours up to 6 AM 04/29/18 06:00 Intake Total 1380 ml Balance 1380 ml BRIANNA MO PA-C Apr 29, 2018 09:26
[2018-04-29] MEDS: ATORVASTATIN 20 MG TAB PO SCH (21:00)
[2018-04-30 06:00] VITALS: BP 153/78
[2018-04-30] MEDS: CLOPIDOGREL 75 MG TAB PO SCH (09:05)
[2018-04-30] MEDS: VITAMIN D 1,000 INTERNATIONAL UNITS TABLET PO SCH (09:05)
[2018-04-30] MEDS: POTASSIUM CHLORIDE 10 MEQ SR TABLET PO SCH (09:05)
[2018-04-30] MEDS: LEVOTHYROXINE 25MCG TABLET (0.025MG) PO SCH (10:07)
[2018-04-30] MEDS: QUEtiapine FUMARATE 12.5 MG HALF-TAB PO SCH ×2 (10:07→20:42)
[2018-04-30] MEDS: FUROSEMIDE 20 MG TAB PO SCH (10:07)
[2018-04-30] MEDS: ATORVASTATIN 20 MG TAB PO SCH (20:42)
[2018-04-30 22:00] VITALS: BP 183/79
[2018-05-01 06:00] VITALS: BP 168/86
[2018-05-01] MEDS: POTASSIUM CHLORIDE 10 MEQ SR TABLET PO SCH (08:33)
[2018-05-01] MEDS: VITAMIN D 1,000 INTERNATIONAL UNITS TABLET PO SCH (08:33)
[2018-05-01] MEDS: CLOPIDOGREL 75 MG TAB PO SCH (08:33)
[2018-05-01] MEDS: LEVOTHYROXINE 25MCG TABLET (0.025MG) PO SCH (08:34)
[2018-05-01] MEDS: FUROSEMIDE 20 MG TAB PO SCH (08:34)
[2018-05-01] MEDS: QUEtiapine FUMARATE 12.5 MG HALF-TAB PO SCH ×2 (08:34→20:01)
[2018-05-01] MEDS: ATORVASTATIN 20 MG TAB PO SCH (20:01)
[2018-05-02 06:00] VITALS: BP 162/75
[2018-05-02] MEDS: POTASSIUM CHLORIDE 10 MEQ SR TABLET PO SCH (11:46)
[2018-05-02] MEDS: VITAMIN D 1,000 INTERNATIONAL UNITS TABLET PO SCH (11:46)
[2018-05-02] MEDS: CLOPIDOGREL 75 MG TAB PO SCH (11:46)
[2018-05-02] MEDS: FUROSEMIDE 20 MG TAB PO SCH (11:47)
[2018-05-02] MEDS: LEVOTHYROXINE 25MCG TABLET (0.025MG) PO SCH (11:47)
[2018-05-02] MEDS: QUEtiapine FUMARATE 12.5 MG HALF-TAB PO SCH ×3 (11:47→21:06)
[2018-05-02 14:00] VITALS: BP 160/75
[2018-05-02] MEDS: ATORVASTATIN 20 MG TAB PO SCH (21:06)
[2018-05-03 06:00] VITALS: BP 169/74
[2018-05-03] MEDS: FUROSEMIDE 20 MG TAB PO SCH (09:30)
[2018-05-03] MEDS: QUEtiapine FUMARATE 12.5 MG HALF-TAB PO SCH ×2 (09:30→21:16)
[2018-05-03] MEDS: LEVOTHYROXINE 25MCG TABLET (0.025MG) PO SCH (09:30)
[2018-05-03] MEDS: POTASSIUM CHLORIDE 10 MEQ SR TABLET PO SCH ×2 (09:30→09:50)
[2018-05-03] MEDS: VITAMIN D 1,000 INTERNATIONAL UNITS TABLET PO SCH (09:50)
[2018-05-03] MEDS: CLOPIDOGREL 75 MG TAB PO SCH (09:50)
[2018-05-03] MEDS: ATORVASTATIN 20 MG TAB PO SCH (21:14)
[2018-05-04 06:00] VITALS: BP 138/86
[2018-05-04] MEDS: POTASSIUM CHLORIDE 10 MEQ SR TABLET PO SCH (09:00)
[2018-05-04] MEDS: QUEtiapine FUMARATE 12.5 MG HALF-TAB PO SCH ×2 (09:00→20:16)
[2018-05-04] MEDS: FUROSEMIDE 20 MG TAB PO SCH (09:00)
[2018-05-04] MEDS: LEVOTHYROXINE 25MCG TABLET (0.025MG) PO SCH (09:00)
[2018-05-04] MEDS: VITAMIN D 1,000 INTERNATIONAL UNITS TABLET PO SCH (09:00)
[2018-05-04] MEDS: CLOPIDOGREL 75 MG TAB PO SCH (09:00)
[2018-05-04 15:06] VITALS: BP 138/86
[2018-05-04] MEDS: ATORVASTATIN 20 MG TAB PO SCH (20:17)
[2018-05-05 04:00] VITALS: BP 140/82
[2018-05-05 04:10] VITALS: BP 140/82
[2018-05-05] MEDS: LEVOTHYROXINE 25MCG TABLET (0.025MG) PO SCH ×2 (09:00→09:19)
[2018-05-05] MEDS: FUROSEMIDE 20 MG TAB PO SCH (09:00)
[2018-05-05] MEDS: QUEtiapine FUMARATE 12.5 MG HALF-TAB PO SCH ×2 (09:00→21:00)
[2018-05-05] MEDS: POTASSIUM CHLORIDE 10 MEQ SR TABLET PO SCH (09:19)
[2018-05-05] MEDS: CLOPIDOGREL 75 MG TAB PO SCH (09:19)
[2018-05-05] MEDS: VITAMIN D 1,000 INTERNATIONAL UNITS TABLET PO SCH (09:19)
[2018-05-05] MEDS: ATORVASTATIN 20 MG TAB PO SCH (21:28)
[2018-05-06 06:00] VITALS: BP 158/62
[2018-05-06] MEDS: QUEtiapine FUMARATE 12.5 MG HALF-TAB PO SCH ×2 (09:00→21:13)
[2018-05-06] MEDS: CLOPIDOGREL 75 MG TAB PO SCH (09:35)
[2018-05-06] MEDS: VITAMIN D 1,000 INTERNATIONAL UNITS TABLET PO SCH (09:35)
[2018-05-06] MEDS: LEVOTHYROXINE 25MCG TABLET (0.025MG) PO SCH (09:35)
[2018-05-06] MEDS: FUROSEMIDE 20 MG TAB PO SCH (09:35)
[2018-05-06] MEDS: POTASSIUM CHLORIDE 10 MEQ SR TABLET PO SCH (09:35)
[2018-05-06] MEDS: ATORVASTATIN 20 MG TAB PO SCH (21:13)
[2018-05-07 06:00] VITALS: BP 147/85
[2018-05-07] MEDS: QUEtiapine FUMARATE 12.5 MG HALF-TAB PO SCH ×2 (09:00→20:35)
[2018-05-07] MEDS: CLOPIDOGREL 75 MG TAB PO SCH (09:00)
[2018-05-07] MEDS: FUROSEMIDE 20 MG TAB PO SCH (09:00)
[2018-05-07] MEDS: POTASSIUM CHLORIDE 10 MEQ SR TABLET PO SCH (09:00)
[2018-05-07] MEDS: VITAMIN D 1,000 INTERNATIONAL UNITS TABLET PO SCH (09:00)
[2018-05-07] MEDS: LEVOTHYROXINE 25MCG TABLET (0.025MG) PO SCH (09:00)
--- NOTE | 2018-05-07 17:12 | IPNPDOC ---
Text Note Date of Service The patient was seen on 05/07/18. NOTE HPI:Patient sitting comfortably in bed. Is doing well. Has no complaints on exam. ROS: General: No fevers, chills. Physical Exam: General: Alert, cooperative. HEENT: Atraumatic. Cardiac: Normal s1, s2. no murmurs. Respiratory: Clear to auscultation. Extremity: No swelling. Assessment/Plan: (1) Vascular dementia Status: Chronic Problem Text: Patient would still like to go home today. Has not been working with staff to coordinate placement. Continue to monitor patient. Had reported fall due to finding patient on floor but patient sits on floor from time to time. Monitor for now. (2) Delusion of Status: Resolved Problem Text: CT abd/pelvis negative from 03/28/18. + hysterectomy. (3) Abdominal pain Status: Resolved Problem Text: No abd pain today. Abd x-ray neg. Renal US neg Abd x-ray neg, Renal US unrevealing CT Abd/pelvis negative from 03/28. (4) Hypothyroid Status: Chronic Response to Treatment: Stable (5) CKD (chronic kidney disease), stage III Status: Chronic Response to Treatment: Stable Plan: Continue to try to work with placement for safe discharge. VS,Fishbone, I+O VS, Fishbone, I+O Vital Signs Date Time Temp Pulse Resp B/P (MAP) Pulse Ox O2 Delivery O2 Flow Rate FiO2 05/07/18 06:00 97.1 52 16 147/85 (105) 97 Room Air I&O- Last 24 Hours up to 6 AM 05/07/18 05:59 Intake Total 1440 ml Balance 1440 ml GME ATTESTATION GME ATTESTATION My faculty preceptor for this patient encounter was physically present during the encounter and was fully available. All aspects of the patient interview, examination, medical decision making process, and medical care plan development were reviewed and approved by the faculty preceptor. The faculty preceptor is aware and concurs with the plan as stated in the body of this note and will attest to such by his/her cosignature. ATTENDING NOTE HPI: ROS: Physical Exam: Assessment/Plan: 1) Vascular dementia Status: Chronic Problem Text: 04/29 pt appropriate this morning. She is adament on going home to an apt to live alone. Refusing to work with staff to coordinate placement options. 04/18 after meeting with the patient this morning is appears as though she remains able to make her own decisions. We talked about her lack of a HCP, she advised that she simply had not been able to decide who she should appoint to make her decisions as she doesn't have much family. States that her son and his are not options for her and her sister Danette she doesn't believe would be up for the job. She states that she does not want to be resuscitated however. She does not want to be kept alive on machines and if she is no longer breathing she doesn't want any machines to change that. I inquired with her what she would want done if her heart stopped beating and she was very clear that she wanted nothing done. I asked her if we could complete a form noting such. She states that we could but she didn't want to sign up. I asked her if that was because she was unsure of her decision and she said absolutely not. I left the room to obtain a MOLST form as well as the Charge Nurse Lorraine. We held this conversation with Aide again where she very clearly verbalized her wish not to be resuscitated. The MOLST form was therefore completed with 2 witnesses and no patient signature. Pt is now DNR. 04/05 - Appreciate Psych consult. Could consider trying Seroquel 25 mg at hs to help with the agitation and sundowning. I have a call out to her son to discuss risks involve with using this type of medication in the elderly. I spoke with her son the other day and he would ideally like to take her home, but they cannot handle her if she becomes agitated like she did on the day of admission. They are afraid she will hurt herself or they may hurt her when trying to restrain her. She responded well to Haldol on admission without significant sedation, however using this medication snf carries increased risk of in elderly patients. In the meantime, we will start process of placement, but if she remains stable (not agitated, wandering, sleeping through the night, her family may be able to take her home Addendum: 04/08/18 - I was able to get ahold of Aide's son and discussed risks and benefits of using Seroquel including increased risk of . He would like to try it while she is here in the hospital to see if it controls her paranoid delusions and agitation enough to allow for them to handle her at home. (Progressively worsening now with episodes of delusions. she lives with her son and his and children. Family unable to mange her at home when she is delusional because she becomes agitated and is up all night waking family members) (2) Delusion of Status: Resolved Problem Text: CT abd/pelvis negative from 03/28/18. + hysterectomy. (3) Abdominal pain Status: Resolved Problem Text: No abd pain today. Abd x-ray neg. Renal US neg Abd x-ray neg, Renal US unrevealing CT Abd/pelvis negative from 03/28. (4) Hypothyroid Status: Chronic Response to Treatment: Stable (5) CKD (chronic kidney disease), stage III Status: Chronic Response to Treatment: Stable Plan: EDWARD PANG DO May 07, 2018 14:54
[2018-05-07] MEDS: ATORVASTATIN 20 MG TAB PO SCH (20:35)
[2018-05-08 06:00] VITALS: BP 189/74
[2018-05-08] MEDS: VITAMIN D 1,000 INTERNATIONAL UNITS TABLET PO SCH (09:33)
[2018-05-08] MEDS: LEVOTHYROXINE 25MCG TABLET (0.025MG) PO SCH (09:34)
[2018-05-08] MEDS: CLOPIDOGREL 75 MG TAB PO SCH (09:34)
[2018-05-08] MEDS: FUROSEMIDE 20 MG TAB PO SCH (09:34)
[2018-05-08] MEDS: QUEtiapine FUMARATE 12.5 MG HALF-TAB PO SCH ×3 (09:34→20:46)
[2018-05-08] MEDS: POTASSIUM CHLORIDE 10 MEQ SR TABLET PO SCH (09:34)
[2018-05-08 15:30] VITALS: BP 170/74
[2018-05-08 16:00] LABS: HEMOGLOBIN 11.4 g/dl (12.0-15.5); MEAN CORPUSCULAR HEMOGLOBIN 30.4 pg (27.0-33.0); MEAN CORPUSCULAR HGB CONC 32.6 g/dl (32.0-36.5); MEAN CORPUSCULAR VOLUME 93.3 fl (80.0-96.0); PLATELET COUNT, AUTOMATED 360 10^3/uL (150-450); RED BLOOD COUNT 3.75 10^6/uL (4.00-5.40); WHITE BLOOD COUNT 9.9 10^3/uL (4.0-10.0)
[2018-05-08 16:31] LABS: ALBUMIN 3.4 GM/DL (3.2-5.2); BILIRUBIN,TOTAL 0.3 MG/DL (0.2-1.0); CALCIUM LEVEL 8.3 MG/DL (8.8-10.2); CREATININE FOR GFR 1.24 MG/DL (0.55-1.30); GLOMERULAR FILTRATION RATE 44.3 (>32); POTASSIUM SERUM 4.9 MEQ/L (3.5-5.1); THYROID STIMULATING HORMONE 6.05 uIU/ML (0.358-3.740); TOTAL PROTEIN 7.2 GM/DL (6.4-8.2)
[2018-05-08] MEDS: ATORVASTATIN 20 MG TAB PO SCH (20:44)
[2018-05-09 06:00] VITALS: BP 158/76
[2018-05-09] MEDS: FUROSEMIDE 20 MG TAB PO SCH (08:39)
[2018-05-09] MEDS: VITAMIN D 1,000 INTERNATIONAL UNITS TABLET PO SCH (08:39)
[2018-05-09] MEDS: POTASSIUM CHLORIDE 10 MEQ SR TABLET PO SCH (08:39)
[2018-05-09] MEDS: QUEtiapine FUMARATE 12.5 MG HALF-TAB PO SCH ×2 (08:39→20:34)
[2018-05-09] MEDS: CLOPIDOGREL 75 MG TAB PO SCH (08:39)
[2018-05-09] MEDS: LEVOTHYROXINE 25MCG TABLET (0.025MG) PO SCH (08:40)
[2018-05-09] MEDS ORDERED: PILL CRUSHER/CUTTER 1 EACH XX PRN (09:45)
[2018-05-09] MEDS: LEVOTHYROXINE 50MCG TABLET (0.05MG) PO SCH (11:07)
[2018-05-09] MEDS: ATORVASTATIN 20 MG TAB PO SCH (20:34)
[2018-05-10 06:00] VITALS: BP 162/73
[2018-05-10] MEDS: CLOPIDOGREL 75 MG TAB PO SCH (10:48)
[2018-05-10] MEDS: FUROSEMIDE 20 MG TAB PO SCH (10:48)
[2018-05-10] MEDS: QUEtiapine FUMARATE 12.5 MG HALF-TAB PO SCH ×2 (10:48→21:00)
[2018-05-10] MEDS: POTASSIUM CHLORIDE 10 MEQ SR TABLET PO SCH (10:48)
[2018-05-10] MEDS: VITAMIN D 1,000 INTERNATIONAL UNITS TABLET PO SCH (10:48)
[2018-05-10] MEDS: LEVOTHYROXINE 50MCG TABLET (0.05MG) PO SCH (10:48)
[2018-05-10] MEDS: ATORVASTATIN 20 MG TAB PO SCH (21:51)
[2018-05-11 06:00] VITALS: BP 150/63
[2018-05-11] MEDS: QUEtiapine FUMARATE 12.5 MG HALF-TAB PO SCH ×2 (10:43→21:55)
[2018-05-11] MEDS: CLOPIDOGREL 75 MG TAB PO SCH (10:43)
[2018-05-11] MEDS: POTASSIUM CHLORIDE 10 MEQ SR TABLET PO SCH (10:43)
[2018-05-11] MEDS: LEVOTHYROXINE 50MCG TABLET (0.05MG) PO SCH (10:43)
[2018-05-11] MEDS: VITAMIN D 1,000 INTERNATIONAL UNITS TABLET PO SCH (10:44)
[2018-05-11] MEDS: FUROSEMIDE 20 MG TAB PO SCH (10:44)
[2018-05-11] MEDS: ATORVASTATIN 20 MG TAB PO SCH (21:55)
[2018-05-12 06:00] VITALS: BP 160/69
[2018-05-12] MEDS: CLOPIDOGREL 75 MG TAB PO SCH (08:46)
[2018-05-12] MEDS: FUROSEMIDE 20 MG TAB PO SCH (08:47)
[2018-05-12] MEDS: POTASSIUM CHLORIDE 10 MEQ SR TABLET PO SCH (08:47)
[2018-05-12] MEDS: QUEtiapine FUMARATE 12.5 MG HALF-TAB PO SCH ×2 (08:47→21:00)
[2018-05-12] MEDS: LEVOTHYROXINE 50MCG TABLET (0.05MG) PO SCH (08:47)
[2018-05-12] MEDS: VITAMIN D 1,000 INTERNATIONAL UNITS TABLET PO SCH (08:47)
[2018-05-12] MEDS: ATORVASTATIN 20 MG TAB PO SCH (21:48)
[2018-05-13 06:00] VITALS: BP 153/71
[2018-05-13] MEDS: LEVOTHYROXINE 50MCG TABLET (0.05MG) PO SCH (09:55)
[2018-05-13] MEDS: VITAMIN D 1,000 INTERNATIONAL UNITS TABLET PO SCH (09:55)
[2018-05-13] MEDS: CLOPIDOGREL 75 MG TAB PO SCH (09:55)
[2018-05-13] MEDS: POTASSIUM CHLORIDE 10 MEQ SR TABLET PO SCH (09:56)
[2018-05-13] MEDS: FUROSEMIDE 20 MG TAB PO SCH (09:56)
[2018-05-13] MEDS: QUEtiapine FUMARATE 12.5 MG HALF-TAB PO SCH ×2 (09:56→21:00)
[2018-05-13 20:00] VITALS: BP 166/72
[2018-05-13] MEDS: ATORVASTATIN 20 MG TAB PO SCH (23:18)
[2018-05-14 06:00] VITALS: BP 196/85
[2018-05-14 06:25] VITALS: BP 162/74
--- NOTE | 2018-05-14 08:29 | IPNPDOC ---
Subjective Date Seen The patient was seen on 05/14/18. Subjective Chief Complaint/HPI Pt this morning without new concerns. Nursing also without concerns. She is feeling well. General: Denies: Fatigue Constitutional: Denies: Chills, Fever Pulmonary: Denies: Dyspnea, Cough Cardiovascular: Denies: Chest Pain, Palpitations Gastrointestinal: Denies: Nausea, Vomiting, Diarrhea Neurological: Denies: Weakness Psych: Reports: Mood Normal Objective Physical Examination General Exam: Positive: Alert, No Acute Distress (sitting in bedside chair, pleasant and appropriate) Eye Exam: Negative: Sclera icteric ENT Exam: Positive: Atraumatic, Mucous membr. moist/pink Neck Exam: Positive: Supple Chest Exam: Positive: Clear to auscultation, Normal air movement; Negative: Rales, Rhonchi, Wheezing Heart Exam: Positive: Rate Normal, Regular Rhythm, Normal S2 Abdomen Exam: Positive: Normal bowel sounds, Soft; Negative: Tenderness Extremity Exam: Negative: Edema Skin Exam: Positive: Nl turgor and temperature Psych Exam: Negative: Mental status NL Assessment /Plan Problems (1) Vascular dementia Status: Chronic Problem Text: 05/14 PFS cont to work with patient to arrange for placement, she cont to refuse anything but home to live alone at this time. 04/29 pt appropriate this morning. She is adament on going home to an apt to live alone. Refusing to work with staff to coordinate placement options. 04/18 after meeting with the patient this morning is appears as though she remains able to make her own decisions. We talked about her lack of a HCP, she advised that she simply had not been able to decide who she should appoint to make her decisions as she doesn't have much family. States that her son and his are not options for her and her sister Danette she doesn't believe would be up for the job. She states that she does not want to be resuscitated however. She does not want to be kept alive on machines and if she is no longer breathing she doesn't want any machines to change that. I inquired with her what she would want done if her heart stopped beating and she was very clear that she wanted nothing done. I asked her if we could complete a form noting such. She states that we could but she didn't want to sign up. I asked her if that was because she was unsure of her decision and she said absolutely not. I left the room to obtain a MOLST form as well as the Charge Nurse Lorraine. We held this conversation with Aide again where she very clearly verbalized her wish not to be resuscitated. The MOLST form was therefore completed with 2 witnesses and no patient signature. Pt is now DNR. 04/05 - Appreciate Psych consult. Could consider trying Seroquel 25 mg at hs to help with the agitation and sundowning. I have a call out to her son to discuss risks involve with using this type of medication in the elderly. I spoke with her son the other day and he would ideally like to take her home, but they cannot handle her if she becomes agitated like she did on the day of admission. They are afraid she will hurt herself or they may hurt her when trying to restrain her. She responded well to Haldol on admission without significant sedation, however using this medication mat cutter carries increased risk of in elderly patients. In the meantime, we will start process of placement, but if she remains stable (not agitated, wandering, sleeping through the night, her family may be able to take her home Addendum: 04/08/18 - I was able to get ahold of Aide's son and discussed risks and benefits of using Seroquel including increased risk of . He would like to try it while she is here in the hospital to see if it controls her paranoid delusions and agitation enough to allow for them to handle her at home. (Progressively worsening now with episodes of delusions. she lives with her son and his and children. Family unable to mange her at home when she is delusional because she becomes agitated and is up all night waking family members) (2) Delusion of Status: Resolved Problem Text: CT abd/pelvis negative from 03/28/18. + hysterectomy. (3) Abdominal pain Status: Resolved Problem Text: No abd pain today. Abd x-ray neg. Renal US neg Abd x-ray neg, Renal US unrevealing CT Abd/pelvis negative from 03/28. (4) Hypothyroid Status: Chronic Response to Treatment: Stable (5) CKD (chronic kidney disease), stage III Status: Chronic Response to Treatment: Stable Plan/VTE VTE Prophylaxis Ordered?: Yes (plavix, TEDS/SCDs) Plan Anticipated Discharge: [facility] VS, I&O, 24H, Fishbone Vital Signs/I&O Vital Signs Date Time Temp Pulse Resp B/P (MAP) Pulse Ox O2 Delivery O2 Flow Rate FiO2 05/14/18 06:25 162/74 (103) 05/14/18 06:00 97.6 96 18 94 Room Air I&O- Last 24 Hours up to 6 AM 05/14/18 06:00 Intake Total 1080 ml Balance 1080 ml BRIANNA MO PA-C May 14, 2018 08:29
[2018-05-14] MEDS: QUEtiapine FUMARATE 12.5 MG HALF-TAB PO SCH ×2 (09:00→21:00)
[2018-05-14] MEDS: LEVOTHYROXINE 50MCG TABLET (0.05MG) PO SCH (09:23)
[2018-05-14] MEDS: CLOPIDOGREL 75 MG TAB PO SCH (09:24)
[2018-05-14] MEDS: POTASSIUM CHLORIDE 10 MEQ SR TABLET PO SCH (09:24)
[2018-05-14] MEDS: VITAMIN D 1,000 INTERNATIONAL UNITS TABLET PO SCH (09:24)
[2018-05-14] MEDS: FUROSEMIDE 20 MG TAB PO SCH (09:24)
[2018-05-14] MEDS: ATORVASTATIN 20 MG TAB PO SCH (22:02)
[2018-05-15 06:00] VITALS: BP 166/77
[2018-05-15] MEDS: CLOPIDOGREL 75 MG TAB PO SCH (10:03)
[2018-05-15] MEDS: POTASSIUM CHLORIDE 10 MEQ SR TABLET PO SCH (10:03)
[2018-05-15] MEDS: LEVOTHYROXINE 50MCG TABLET (0.05MG) PO SCH (10:03)
[2018-05-15] MEDS: VITAMIN D 1,000 INTERNATIONAL UNITS TABLET PO SCH (10:04)
[2018-05-15] MEDS: QUEtiapine FUMARATE 12.5 MG HALF-TAB PO SCH ×2 (10:26→22:00)
[2018-05-15] MEDS: FUROSEMIDE 20 MG TAB PO SCH (10:26)
[2018-05-15] MEDS: ATORVASTATIN 20 MG TAB PO SCH (22:00)
[2018-05-16 06:00] VITALS: BP 121/56
[2018-05-16] MEDS: QUEtiapine FUMARATE 12.5 MG HALF-TAB PO SCH ×2 (09:00→21:00)
[2018-05-16] MEDS: LEVOTHYROXINE 50MCG TABLET (0.05MG) PO SCH (10:46)
[2018-05-16] MEDS: POTASSIUM CHLORIDE 10 MEQ SR TABLET PO SCH (10:47)
[2018-05-16] MEDS: VITAMIN D 1,000 INTERNATIONAL UNITS TABLET PO SCH (10:47)
[2018-05-16] MEDS: FUROSEMIDE 20 MG TAB PO SCH (10:48)
[2018-05-16] MEDS: CLOPIDOGREL 75 MG TAB PO SCH (10:48)
[2018-05-16] MEDS: ATORVASTATIN 20 MG TAB PO SCH (21:41)
[2018-05-17 06:00] VITALS: BP 156/74
[2018-05-17] MEDS: QUEtiapine FUMARATE 12.5 MG HALF-TAB PO SCH ×2 (09:00→20:04)
[2018-05-17] MEDS: VITAMIN D 1,000 INTERNATIONAL UNITS TABLET PO SCH (10:27)
[2018-05-17] MEDS: FUROSEMIDE 20 MG TAB PO SCH (10:28)
[2018-05-17] MEDS: CLOPIDOGREL 75 MG TAB PO SCH (10:28)
[2018-05-17] MEDS: POTASSIUM CHLORIDE 10 MEQ SR TABLET PO SCH (10:28)
[2018-05-17] MEDS: LEVOTHYROXINE 50MCG TABLET (0.05MG) PO SCH (10:29)
[2018-05-17] MEDS: ATORVASTATIN 20 MG TAB PO SCH (20:03)
[2018-05-18 06:00] VITALS: BP 152/70
[2018-05-18] MEDS: QUEtiapine FUMARATE 12.5 MG HALF-TAB PO SCH ×2 (09:00→20:37)
[2018-05-18] MEDS: FUROSEMIDE 20 MG TAB PO SCH (09:32)
[2018-05-18] MEDS: CLOPIDOGREL 75 MG TAB PO SCH (09:32)
[2018-05-18] MEDS: LEVOTHYROXINE 50MCG TABLET (0.05MG) PO SCH (09:32)
[2018-05-18] MEDS: POTASSIUM CHLORIDE 10 MEQ SR TABLET PO SCH (09:32)
[2018-05-18] MEDS: VITAMIN D 1,000 INTERNATIONAL UNITS TABLET PO SCH (09:33)
[2018-05-18] MEDS: ATORVASTATIN 20 MG TAB PO SCH (20:37)
[2018-05-19 06:00] VITALS: BP 156/74
[2018-05-19] MEDS: QUEtiapine FUMARATE 12.5 MG HALF-TAB PO SCH ×2 (10:08→21:00)
[2018-05-19] MEDS: POTASSIUM CHLORIDE 10 MEQ SR TABLET PO SCH (10:09)
[2018-05-19] MEDS: CLOPIDOGREL 75 MG TAB PO SCH (10:09)
[2018-05-19] MEDS: LEVOTHYROXINE 50MCG TABLET (0.05MG) PO SCH (10:09)
[2018-05-19] MEDS: VITAMIN D 1,000 INTERNATIONAL UNITS TABLET PO SCH (10:09)
[2018-05-19] MEDS: FUROSEMIDE 20 MG TAB PO SCH (10:09)
[2018-05-19] MEDS: ATORVASTATIN 20 MG TAB PO SCH (20:58)
[2018-05-20 06:00] VITALS: BP 145/65
[2018-05-20] MEDS: QUEtiapine FUMARATE 12.5 MG HALF-TAB PO SCH ×2 (09:00→21:00)
--- NOTE | 2018-05-20 09:46 | IPNPDOC ---
Subjective Date Seen The patient was seen on 05/20/18. Subjective Chief Complaint/HPI Pt this morning without new concerns. Nursing reports pt with some delusions end of last week, no reports over the weekend. General: Denies: Fatigue ENT: Denies: Head Aches Pulmonary: Denies: Dyspnea, Cough Cardiovascular: Denies: Chest Pain, Palpitations Gastrointestinal: Denies: Nausea, Vomiting Neurological: Denies: Weakness Psych: Reports: Mood Normal Objective Physical Examination General Exam: Positive: Alert, No Acute Distress (sitting in bedside chair, pleasant and appropriate) Eye Exam: Negative: Sclera icteric ENT Exam: Positive: Atraumatic, Mucous membr. moist/pink Neck Exam: Positive: Supple Chest Exam: Positive: Clear to auscultation, Normal air movement; Negative: Rales, Rhonchi, Wheezing Heart Exam: Positive: Rate Normal, Regular Rhythm, Normal S2 Abdomen Exam: Positive: Normal bowel sounds, Soft; Negative: Tenderness Extremity Exam: Negative: Edema Skin Exam: Positive: Nl turgor and temperature Psych Exam: Negative: Mental status NL Assessment /Plan Problems (1) Vascular dementia Status: Chronic Problem Text: 05/20 Pt cont to have capacity, cont to refuse placement however unsafe to be d/c alone. Refuses family assistance. 05/14 PFS cont to work with patient to arrange for placement, she cont to refuse anything but home to live alone at this time. 04/29 pt appropriate this morning. She is adament on going home to an apt to live alone. Refusing to work with staff to coordinate placement options. 04/18 after meeting with the patient this morning is appears as though she remains able to make her own decisions. We talked about her lack of a HCP, she advised that she simply had not been able to decide who she should appoint to make her decisions as she doesn't have much family. States that her son and his are not options for her and her sister Danette she doesn't believe would be up for the job. She states that she does not want to be resuscitated however. She does not want to be kept alive on machines and if she is no longer breathing she doesn't want any machines to change that. I inquired with her what she would want done if her heart stopped beating and she was very clear that she wanted nothing done. I asked her if we could complete a form noting such. She states that we could but she didn't want to sign up. I asked her if that was because she was unsure of her decision and she said absolutely not. I left the room to obtain a MOLST form as well as the Charge Nurse Lorraine. We held this conversation with Aide again where she very clearly verbalized her wish not to be resuscitated. The MOLST form was therefore completed with 2 witnesses and no patient signature. Pt is now DNR. 04/05 - Appreciate Psych consult. Could consider trying Seroquel 25 mg at hs to help with the agitation and sundowning. I have a call out to her son to discuss risks involve with using this type of medication in the elderly. I spoke with her son the other day and he would ideally like to take her home, but they cannot handle her if she becomes agitated like she did on the day of admission. They are afraid she will hurt herself or they may hurt her when trying to restrain her. She responded well to Haldol on admission without significant sedation, however using this medication embroidery patternmaker carries increased risk of in elderly patients. In the meantime, we will start process of placement, but if she remains stable (not agitated, wandering, sleeping through the night, her family may be able to take her home Addendum: 04/08/18 - I was able to get ahold of Aide's son and discussed risks and benefits of using Seroquel including increased risk of . He would like to try it while she is here in the hospital to see if it controls her paranoid delusions and agitation enough to allow for them to handle her at home. (Progressively worsening now with episodes of delusions. she lives with her son and his and children. Family unable to mange her at home when she is delusional because she becomes agitated and is up all night waking family members) (2) Delusion of Status: Resolved Problem Text: CT abd/pelvis negative from 03/28/18. + hysterectomy. (3) Abdominal pain Status: Resolved Problem Text: No abd pain today. Abd x-ray neg. Renal US neg Abd x-ray neg, Renal US unrevealing CT Abd/pelvis negative from 03/28. (4) Hypothyroid Status: Chronic Response to Treatment: Stable (5) CKD (chronic kidney disease), stage III Status: Chronic Response to Treatment: Stable Plan/VTE VTE Prophylaxis Ordered?: Yes (plavix, TEDS/SCDs) Plan Anticipated Discharge: [facility] VS, I&O, 24H, Fishbone Vital Signs/I&O Vital Signs Date Time Temp Pulse Resp B/P (MAP) Pulse Ox O2 Delivery O2 Flow Rate FiO2 05/20/18 06:00 98.2 63 20 145/65 (91) 97 Room Air I&O- Last 24 Hours up to 6 AM 05/20/18 05:59 Intake Total 920 ml Output Total 0 ml Balance 920 ml BRIANNA MO PA-C May 20, 2018 09:46
[2018-05-20] MEDS: LEVOTHYROXINE 50MCG TABLET (0.05MG) PO SCH (10:28)
[2018-05-20] MEDS: POTASSIUM CHLORIDE 10 MEQ SR TABLET PO SCH (10:28)
[2018-05-20] MEDS: CLOPIDOGREL 75 MG TAB PO SCH (10:28)
[2018-05-20] MEDS: FUROSEMIDE 20 MG TAB PO SCH (10:28)
[2018-05-20] MEDS: VITAMIN D 1,000 INTERNATIONAL UNITS TABLET PO SCH (10:28)
[2018-05-20] MEDS: ATORVASTATIN 20 MG TAB PO SCH (21:14)
[2018-05-21 06:00] VITALS: BP 146/64
[2018-05-21] MEDS: QUEtiapine FUMARATE 12.5 MG HALF-TAB PO SCH ×2 (09:00→20:40)
[2018-05-21] MEDS: LEVOTHYROXINE 50MCG TABLET (0.05MG) PO SCH (09:33)
[2018-05-21] MEDS: CLOPIDOGREL 75 MG TAB PO SCH (09:33)
[2018-05-21] MEDS: VITAMIN D 1,000 INTERNATIONAL UNITS TABLET PO SCH (09:33)
[2018-05-21] MEDS: FUROSEMIDE 20 MG TAB PO SCH (09:33)
[2018-05-21] MEDS: POTASSIUM CHLORIDE 10 MEQ SR TABLET PO SCH (09:33)
[2018-05-21] MEDS: ATORVASTATIN 20 MG TAB PO SCH (20:45)
[2018-05-22 06:00] VITALS: BP 152/60
[2018-05-22] MEDS: QUEtiapine FUMARATE 12.5 MG HALF-TAB PO SCH ×3 (09:00→21:00)
[2018-05-22] MEDS: LEVOTHYROXINE 50MCG TABLET (0.05MG) PO SCH (11:04)
[2018-05-22] MEDS: FUROSEMIDE 20 MG TAB PO SCH (11:05)
[2018-05-22] MEDS: VITAMIN D 1,000 INTERNATIONAL UNITS TABLET PO SCH (11:05)
[2018-05-22] MEDS: POTASSIUM CHLORIDE 10 MEQ SR TABLET PO SCH (11:05)
[2018-05-22] MEDS: CLOPIDOGREL 75 MG TAB PO SCH (11:05)
[2018-05-22] MEDS: ATORVASTATIN 20 MG TAB PO SCH (20:01)
[2018-05-23 06:00] VITALS: BP 142/60
[2018-05-23] MEDS: CLOPIDOGREL 75 MG TAB PO SCH (08:41)
[2018-05-23] MEDS: POTASSIUM CHLORIDE 10 MEQ SR TABLET PO SCH (08:41)
[2018-05-23] MEDS: FUROSEMIDE 20 MG TAB PO SCH (08:42)
[2018-05-23] MEDS: VITAMIN D 1,000 INTERNATIONAL UNITS TABLET PO SCH (08:42)
[2018-05-23] MEDS: LEVOTHYROXINE 50MCG TABLET (0.05MG) PO SCH (08:42)
[2018-05-23] MEDS: QUEtiapine FUMARATE 12.5 MG HALF-TAB PO SCH ×2 (08:42→21:00)
[2018-05-23] MEDS: ATORVASTATIN 20 MG TAB PO SCH (21:44)
[2018-05-24 06:00] VITALS: BP 165/72
[2018-05-24] MEDS: CLOPIDOGREL 75 MG TAB PO SCH (10:47)
[2018-05-24] MEDS: LEVOTHYROXINE 50MCG TABLET (0.05MG) PO SCH (10:47)
[2018-05-24] MEDS: POTASSIUM CHLORIDE 10 MEQ SR TABLET PO SCH (10:47)
[2018-05-24] MEDS: FUROSEMIDE 20 MG TAB PO SCH (10:47)
[2018-05-24] MEDS: QUEtiapine FUMARATE 12.5 MG HALF-TAB PO SCH ×2 (10:48→21:00)
[2018-05-24] MEDS: VITAMIN D 1,000 INTERNATIONAL UNITS TABLET PO SCH (10:48)
[2018-05-24] MEDS: ATORVASTATIN 20 MG TAB PO SCH (21:00)
[2018-05-25 06:00] VITALS: BP 153/74
[2018-05-25] MEDS: CLOPIDOGREL 75 MG TAB PO SCH (10:00)
[2018-05-25] MEDS: POTASSIUM CHLORIDE 10 MEQ SR TABLET PO SCH (10:00)
[2018-05-25] MEDS: VITAMIN D 1,000 INTERNATIONAL UNITS TABLET PO SCH (10:00)
[2018-05-25] MEDS: LEVOTHYROXINE 50MCG TABLET (0.05MG) PO SCH (10:00)
[2018-05-25] MEDS: QUEtiapine FUMARATE 12.5 MG HALF-TAB PO SCH ×2 (10:00→21:00)
[2018-05-25] MEDS: FUROSEMIDE 20 MG TAB PO SCH (10:00)
[2018-05-25] MEDS: ATORVASTATIN 20 MG TAB PO SCH (21:00)
[2018-05-26 06:00] VITALS: BP 156/70
[2018-05-26] MEDS: FUROSEMIDE 20 MG TAB PO SCH (10:23)
[2018-05-26] MEDS: POTASSIUM CHLORIDE 10 MEQ SR TABLET PO SCH (10:23)
[2018-05-26] MEDS: VITAMIN D 1,000 INTERNATIONAL UNITS TABLET PO SCH (10:23)
[2018-05-26] MEDS: QUEtiapine FUMARATE 12.5 MG HALF-TAB PO SCH ×2 (10:23→21:00)
[2018-05-26] MEDS: LEVOTHYROXINE 50MCG TABLET (0.05MG) PO SCH (10:23)
[2018-05-26] MEDS: CLOPIDOGREL 75 MG TAB PO SCH (10:23)
[2018-05-26 14:00] VITALS: BP 153/71
[2018-05-26] MEDS: ATORVASTATIN 20 MG TAB PO SCH (21:26)
[2018-05-27 06:00] VITALS: BP 157/69
[2018-05-27] MEDS: VITAMIN D 1,000 INTERNATIONAL UNITS TABLET PO SCH (12:09)
[2018-05-27] MEDS: POTASSIUM CHLORIDE 10 MEQ SR TABLET PO SCH (12:09)
[2018-05-27] MEDS: CLOPIDOGREL 75 MG TAB PO SCH (12:09)
[2018-05-27] MEDS: LEVOTHYROXINE 50MCG TABLET (0.05MG) PO SCH (12:09)
[2018-05-27] MEDS: FUROSEMIDE 20 MG TAB PO SCH (12:10)
[2018-05-27] MEDS: QUEtiapine FUMARATE 12.5 MG HALF-TAB PO SCH ×2 (12:10→21:00)
[2018-05-27] MEDS: ATORVASTATIN 20 MG TAB PO SCH (22:15)
[2018-05-28 06:00] VITALS: BP 156/70
[2018-05-28 08:31] VITALS: BP 158/62
[2018-05-28] MEDS: QUEtiapine FUMARATE 12.5 MG HALF-TAB PO SCH ×3 (08:41→22:24)
[2018-05-28] MEDS: VITAMIN D 1,000 INTERNATIONAL UNITS TABLET PO SCH (09:03)
[2018-05-28] MEDS: FUROSEMIDE 20 MG TAB PO SCH (09:03)
[2018-05-28] MEDS: CLOPIDOGREL 75 MG TAB PO SCH (09:04)
[2018-05-28] MEDS: POTASSIUM CHLORIDE 10 MEQ SR TABLET PO SCH (09:04)
[2018-05-28] MEDS: LEVOTHYROXINE 50MCG TABLET (0.05MG) PO SCH (09:04)
[2018-05-28 14:10] VITALS: BP 138/58
[2018-05-28] MEDS: ATORVASTATIN 20 MG TAB PO SCH (22:24)
[2018-05-29 06:00] VITALS: BP 160/74
--- NOTE | 2018-05-29 08:18 | IPNPDOC ---
Subjective Date Seen The patient was seen on 05/29/18. Subjective Chief Complaint/HPI Patient is up in chair eating breakfast. No complaints. No concerns per nursing staff. Constitutional: Denies: Chills, Fever Pulmonary: Denies: Dyspnea, Cough Cardiovascular: Denies: Chest Pain, Palpitations, Orthopnea Gastrointestinal: Denies: Nausea, Vomiting, Abdominal Pain, Diarrhea, Constipation Objective Physical Examination General Exam: Positive: Alert, No Acute Distress (sitting in bedside chair, pleasant and appropriate and cooperative) Eye Exam: Negative: Sclera icteric ENT Exam: Positive: Atraumatic, Mucous membr. moist/pink Chest Exam: Positive: Clear to auscultation, Normal air movement; Negative: Rales, Rhonchi, Wheezing Heart Exam: Positive: Rate Normal, Regular Rhythm, Normal S2 Abdomen Exam: Positive: Normal bowel sounds, Soft; Negative: Tenderness Extremity Exam: Negative: Edema Psych Exam: Positive: Mental status NL Assessment /Plan Problems (1) Vascular dementia Status: Chronic Problem Text: 05/29 - Patient refuses to go home with family but seemed amenable to placement today. Very pleasant and cooperative today. Refusing Seroquel most days. 05/20 Pt cont to have capacity, cont to refuse placement however unsafe to be d/c alone. Refuses family assistance. 05/14 PFS cont to work with patient to arrange for placement, she cont to refuse anything but home to live alone at this time. 04/29 pt appropriate this morning. She is adament on going home to an apt to live alone. Refusing to work with staff to coordinate placement options. 04/18 after meeting with the patient this morning is appears as though she remains able to make her own decisions. We talked about her lack of a HCP, she advised that she simply had not been able to decide who she should appoint to make her decisions as she doesn't have much family. States that her son and his are not options for her and her sister Danette she doesn't believe would be up for the job. She states that she does not want to be resuscitated however. She does not want to be kept alive on machines and if she is no longer breathing she doesn't want any machines to change that. I inquired with her what she would want done if her heart stopped beating and she was very clear that she wanted nothing done. I asked her if we could complete a form noting such. She states that we could but she didn't want to sign up. I asked her if that was because she was unsure of her decision and she said absolutely not. I left the room to obtain a MOLST form as well as the Charge Nurse Lorraine. We held this conversation with Aide again where she very clearly verbalized her wish not to be resuscitated. The MOLST form was therefore completed with 2 witnesses and no patient signature. Pt is now DNR. 04/05 - Appreciate Psych consult. Could consider trying Seroquel 25 mg at hs to help with the agitation and sundowning. I have a call out to her son to discuss risks involve with using this type of medication in the elderly. I spoke with her son the other day and he would ideally like to take her home, but they cannot handle her if she becomes agitated like she did on the day of admission. They are afraid she will hurt herself or they may hurt her when trying to restrain her. 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 In the meantime, we will start process of placement, but if she remains stable (not agitated, wandering, sleeping through the night, her family may be able to take her home Addendum: 04/08/18 - I was able to get ahold of Aide's son and discussed risks and benefits of using Seroquel including increased risk of . He would like to try it while she is here in the hospital to see if it controls her paranoid delusions and agitation enough to allow for them to handle her at home. (Progressively worsening now with episodes of delusions. she lives with her son and his and children. Family unable to mange her at home when she is delusional because she becomes agitated and is up all night waking family members) (2) Delusion of Status: Resolved Problem Text: CT abd/pelvis negative from 03/28/18. + hysterectomy. (3) Abdominal pain Status: Resolved Problem Text: No abd pain today. Abd x-ray neg. Renal US neg Abd x-ray neg, Renal US unrevealing CT Abd/pelvis negative from 03/28. (4) Hypothyroid Status: Chronic Response to Treatment: Stable (5) CKD (chronic kidney disease), stage III Status: Chronic Response to Treatment: Stable Plan/VTE VTE Prophylaxis Ordered?: Yes (plavix, TEDS/SCDs) Plan Anticipated Discharge: [facility]sp VS, I&O, 24H, Fishbone Vital Signs/I&O Vital Signs Date Time Temp Pulse Resp B/P (MAP) Pulse Ox O2 Delivery O2 Flow Rate FiO2 05/29/18 06:00 96.8 66 18 160/74 (102) 93 Room Air I&O- Last 24 Hours up to 6 AM 05/29/18 06:00 Intake Total 960 ml Balance 960 ml BERNARD SNYDER PA-C May 29, 2018 08:18
[2018-05-29] MEDS: CLOPIDOGREL 75 MG TAB PO SCH (10:02)
[2018-05-29] MEDS: LEVOTHYROXINE 50MCG TABLET (0.05MG) PO SCH (10:02)
[2018-05-29] MEDS: VITAMIN D 1,000 INTERNATIONAL UNITS TABLET PO SCH (10:02)
[2018-05-29] MEDS: POTASSIUM CHLORIDE 10 MEQ SR TABLET PO SCH (10:02)
[2018-05-29] MEDS: QUEtiapine FUMARATE 12.5 MG HALF-TAB PO SCH ×2 (10:03→21:00)
[2018-05-29] MEDS: FUROSEMIDE 20 MG TAB PO SCH (10:03)
[2018-05-29] MEDS: ATORVASTATIN 20 MG TAB PO SCH (21:53)
[2018-05-30 06:00] VITALS: BP 158/64
[2018-05-30] MEDS: POTASSIUM CHLORIDE 10 MEQ SR TABLET PO SCH (08:30)
[2018-05-30] MEDS: LEVOTHYROXINE 50MCG TABLET (0.05MG) PO SCH (08:30)
[2018-05-30] MEDS: VITAMIN D 1,000 INTERNATIONAL UNITS TABLET PO SCH (08:30)
[2018-05-30] MEDS: CLOPIDOGREL 75 MG TAB PO SCH (08:30)
[2018-05-30] MEDS: QUEtiapine FUMARATE 12.5 MG HALF-TAB PO SCH ×3 (08:31→21:06)
[2018-05-30] MEDS: FUROSEMIDE 20 MG TAB PO SCH (08:31)
[2018-05-30] MEDS: ATORVASTATIN 20 MG TAB PO SCH (21:05)
[2018-05-31 06:00] VITALS: BP 121/62
[2018-05-31] MEDS: QUEtiapine FUMARATE 12.5 MG HALF-TAB PO SCH ×2 (09:00→21:16)
[2018-05-31] MEDS: LEVOTHYROXINE 50MCG TABLET (0.05MG) PO SCH (10:19)
[2018-05-31] MEDS: CLOPIDOGREL 75 MG TAB PO SCH (10:19)
[2018-05-31] MEDS: FUROSEMIDE 20 MG TAB PO SCH (10:20)
[2018-05-31] MEDS: VITAMIN D 1,000 INTERNATIONAL UNITS TABLET PO SCH (10:20)
[2018-05-31] MEDS: POTASSIUM CHLORIDE 10 MEQ SR TABLET PO SCH (10:21)
[2018-05-31] MEDS: ATORVASTATIN 20 MG TAB PO SCH (21:16)
[2018-06-01 06:00] VITALS: BP 143/69
[2018-06-01] MEDS: VITAMIN D 1,000 INTERNATIONAL UNITS TABLET PO SCH (08:52)
[2018-06-01] MEDS: FUROSEMIDE 20 MG TAB PO SCH (08:52)
[2018-06-01] MEDS: QUEtiapine FUMARATE 12.5 MG HALF-TAB PO SCH ×2 (08:52→21:30)
[2018-06-01] MEDS: CLOPIDOGREL 75 MG TAB PO SCH (08:52)
[2018-06-01] MEDS: POTASSIUM CHLORIDE 10 MEQ SR TABLET PO SCH (08:52)
[2018-06-01] MEDS: LEVOTHYROXINE 50MCG TABLET (0.05MG) PO SCH (09:00)
[2018-06-01] MEDS: ATORVASTATIN 20 MG TAB PO SCH (21:30)
[2018-06-02 06:00] VITALS: BP 134/67
[2018-06-02] MEDS: QUEtiapine FUMARATE 12.5 MG HALF-TAB PO SCH ×2 (08:29→21:00)
[2018-06-02] MEDS: LEVOTHYROXINE 50MCG TABLET (0.05MG) PO SCH (08:29)
[2018-06-02] MEDS: VITAMIN D 1,000 INTERNATIONAL UNITS TABLET PO SCH (08:29)
[2018-06-02] MEDS: FUROSEMIDE 20 MG TAB PO SCH (08:29)
[2018-06-02] MEDS: CLOPIDOGREL 75 MG TAB PO SCH (08:29)
[2018-06-02] MEDS: POTASSIUM CHLORIDE 10 MEQ SR TABLET PO SCH (08:29)
[2018-06-02] MEDS: ATORVASTATIN 20 MG TAB PO SCH (21:00)
[2018-06-03 06:00] VITALS: BP 163/80
[2018-06-03 07:00] LABS: HEMATOCRIT 34.7 % (36.0-47.0); HEMOGLOBIN 11.3 g/dl (12.0-15.5); MEAN CORPUSCULAR HEMOGLOBIN 30.3 pg (27.0-33.0); MEAN CORPUSCULAR HGB CONC 32.6 g/dl (32.0-36.5); PLATELET COUNT, AUTOMATED 288 10^3/uL (150-450); RED BLOOD COUNT 3.73 10^6/uL (4.00-5.40); WHITE BLOOD COUNT 9.8 10^3/uL (4.0-10.0)
[2018-06-03 07:21] LABS: CALCIUM LEVEL 8.4 MG/DL (8.8-10.2); CREATININE FOR GFR 1.13 MG/DL (0.55-1.30); GLOMERULAR FILTRATION RATE 49.3 (>32); POTASSIUM SERUM 4.3 MEQ/L (3.5-5.1)
[2018-06-03] MEDS: QUEtiapine FUMARATE 12.5 MG HALF-TAB PO SCH ×2 (09:00→21:00)
[2018-06-03] MEDS: FUROSEMIDE 20 MG TAB PO SCH (09:16)
[2018-06-03] MEDS: LEVOTHYROXINE 50MCG TABLET (0.05MG) PO SCH (09:16)
[2018-06-03] MEDS: POTASSIUM CHLORIDE 10 MEQ SR TABLET PO SCH (09:16)
[2018-06-03] MEDS: CLOPIDOGREL 75 MG TAB PO SCH (09:16)
[2018-06-03] MEDS: VITAMIN D 1,000 INTERNATIONAL UNITS TABLET PO SCH (09:16)
--- NOTE | 2018-06-03 11:03 | IPNPDOC ---
Subjective Date Seen The patient was seen on 06/03/18. Subjective Chief Complaint/HPI Denies c/o. ENT: Denies: Head Aches, Ear Pain, Dysphagia Pulmonary: Denies: Dyspnea, Cough Cardiovascular: Denies: Chest Pain, Palpitations, Orthopnea, Paroxysmal Noc. Dyspnea, Lt Headedness Gastrointestinal: Denies: Nausea, Vomiting, Abdominal Pain, Diarrhea, Constipation Genitourinary: Denies: Dysuria, Frequency, Incontinence, Retention Psych: Reports: Mood Normal; Denies: Depression, Memory Issues Objective Physical Examination General Exam: Positive: Alert, No Acute Distress (sitting in bedside chair, pleasant and appropriate and cooperative) Eye Exam: Negative: Sclera icteric ENT Exam: Positive: Atraumatic, Mucous membr. moist/pink Chest Exam: Positive: Clear to auscultation, Normal air movement; Negative: Rales, Rhonchi, Wheezing Heart Exam: Positive: Rate Normal, Regular Rhythm, Normal S2 Abdomen Exam: Positive: Normal bowel sounds, Soft; Negative: Tenderness Extremity Exam: Negative: Edema Psych Exam: Positive: Mental status NL Assessment /Plan Problems (1) Vascular dementia Status: Chronic Problem Text: 06/03/2018: continue to work with PFS pm placement. 05/29 - Patient refuses to go home with family but seemed amenable to placement today. Very pleasant and cooperative today. Refusing Seroquel most days. 05/20 Pt cont to have capacity, cont to refuse placement however unsafe to be d/c alone. Refuses family assistance. 05/14 PFS cont to work with patient to arrange for placement, she cont to refuse anything but home to live alone at this time. 04/29 pt appropriate this morning. She is adament on going home to an apt to live alone. Refusing to work with staff to coordinate placement options. 04/18 after meeting with the patient this morning is appears as though she r emains able to make her own decisions. We talked about her lack of a HCP, she advised that she simply had not been able to decide who she should appoint to make her decisions as she doesn't have much family. States that her son and his are not options for her and her sister Danette she doesn't believe would be up for the job. She states that she does not want to be resuscitated however. She does not want to be kept alive on machines and if she is no longer breathing she doesn't want any machines to change that. I inquired with her what she would want done if her heart stopped beating and she was very clear that she wanted nothing done. I asked her if we could complete a form noting such. She states that we could but she didn't want to sign up. I asked her if that was because she was unsure of her decision and she said absolutely not. I left the room to obtain a MOLST form as well as the Charge Nurse Lorraine. We held this conversation with Aide again where she very clearly verbalized her wish not to be resuscitated. The MOLST form was therefore completed with 2 witnesses and no patient signature. Pt is now DNR. 04/05 - Appreciate Psych consult. Could consider trying Seroquel 25 mg at hs to help with the agitation and sundowning. I have a call out to her son to discuss risks involve with using this type of medication in the elderly. I spoke with her son the other day and he would ideally like to take her home, but they cannot handle her if she becomes agitated like she did on the day of admission. They are afraid she will hurt herself or they may hurt her when trying to restrain her. 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 In the meantime, we will start process of placement, but if she remains stable (not agitated, wandering, sleeping through the night, her family may be able to take her home Addendum: 04/08/18 - I was able to get ahold of Aide's son and discussed risks and benefits of using Seroquel including increased risk of . He would like to try it while she is here in the hospital to see if it controls her paranoid delusions and agitation enough to allow for them to handle her at home. (Progressively worsening now with episodes of delusions. she lives with her son and his and children. Family unable to mange her at home when she is delusional because she becomes agitated and is up all night waking family members) (2) Delusion of Status: Resolved Problem Text: CT abd/pelvis negative from 03/28/18. + hysterectomy. (3) Abdominal pain Status: Resolved Problem Text: No abd pain today. Abd x-ray neg. Renal US neg Abd x-ray neg, Renal US unrevealing CT Abd/pelvis negative from 03/28. (4) Hypothyroid Status: Chronic Response to Treatment: Stable (5) CKD (chronic kidney disease), stage III Status: Chronic Response to Treatment: Stable Plan/VTE VTE Prophylaxis Ordered?: Yes (plavix, TEDS/SCDs) Plan Anticipated Discharge: Residential VS, I&O, 24H, Fishbone Vital Signs/I&O Vital Signs Date Time Temp Pulse Resp B/P (MAP) Pulse Ox O2 Delivery O2 Flow Rate FiO2 06/03/18 06:00 97.5 64 20 163/80 (107) 97 Room Air I&O- Last 24 Hours up to 6 AM 06/03/18 06:00 Intake Total 820 ml Output Total 0 ml Balance 820 ml Laboratory Data 24H LABS Laboratory Tests 2 06/03/18 06:31: Nucleated Red Blood Cells % (auto) 0.0, Anion Gap 6L, Glomerular Filtration Rate 49.3, Blood Urea Nitrogen 47H, Creatinine 1.13, Sodium Level 141, Potassium Level 4.3, Chloride Level 108H, Carbon Dioxide Level 27, Calcium Level 8.4L CBC/BMP Laboratory Tests 06/03/18 06:31 Red Blood Count 3.73 L, Mean Corpuscular Volume 93.0, Mean Corpuscular Hemoglobin 30.3, Mean Corpuscular Hemoglobin Concent 32.6, Red Cell Distribution Width 12.6, Calcium Level 8.4 L Maren Hancock COW PUNCHER Jun 03, 2018 11:03
[2018-06-03] MEDS: ATORVASTATIN 20 MG TAB PO SCH (21:53)
[2018-06-04 06:00] VITALS: BP 146/67
[2018-06-04] MEDS: QUEtiapine FUMARATE 12.5 MG HALF-TAB PO SCH ×2 (09:00→20:23)
[2018-06-04] MEDS: CLOPIDOGREL 75 MG TAB PO SCH (11:03)
[2018-06-04] MEDS: POTASSIUM CHLORIDE 10 MEQ SR TABLET PO SCH (11:03)
[2018-06-04] MEDS: LEVOTHYROXINE 50MCG TABLET (0.05MG) PO SCH (11:03)
[2018-06-04] MEDS: FUROSEMIDE 20 MG TAB PO SCH (11:03)
[2018-06-04] MEDS: VITAMIN D 1,000 INTERNATIONAL UNITS TABLET PO SCH (11:03)
[2018-06-04] MEDS: ATORVASTATIN 20 MG TAB PO SCH (20:24)
[2018-06-05 06:00] VITALS: BP 150/70
[2018-06-05] MEDS: QUEtiapine FUMARATE 12.5 MG HALF-TAB PO SCH ×2 (09:00→20:39)
[2018-06-05] MEDS: FUROSEMIDE 20 MG TAB PO SCH (09:02)
[2018-06-05] MEDS: VITAMIN D 1,000 INTERNATIONAL UNITS TABLET PO SCH (09:02)
[2018-06-05] MEDS: CLOPIDOGREL 75 MG TAB PO SCH (09:03)
[2018-06-05] MEDS: POTASSIUM CHLORIDE 10 MEQ SR TABLET PO SCH (09:03)
[2018-06-05] MEDS: LEVOTHYROXINE 50MCG TABLET (0.05MG) PO SCH (09:03)
[2018-06-05] MEDS: ATORVASTATIN 20 MG TAB PO SCH (20:38)
[2018-06-05] MEDS: ACETAMINOPHEN 500 MG TAB PO PRN (20:38)
[2018-06-06 05:53] VITALS: BP 162/88
[2018-06-06 06:00] VITALS: BP 184/82
[2018-06-06] MEDS: CLOPIDOGREL 75 MG TAB PO SCH (08:54)
[2018-06-06] MEDS: LEVOTHYROXINE 50MCG TABLET (0.05MG) PO SCH (08:54)
[2018-06-06] MEDS: VITAMIN D 1,000 INTERNATIONAL UNITS TABLET PO SCH (08:54)
[2018-06-06] MEDS: POTASSIUM CHLORIDE 10 MEQ SR TABLET PO SCH (08:54)
[2018-06-06] MEDS: FUROSEMIDE 20 MG TAB PO SCH (08:55)
[2018-06-06] MEDS: QUEtiapine FUMARATE 12.5 MG HALF-TAB PO SCH ×2 (08:55→20:53)
[2018-06-06] MEDS: ATORVASTATIN 20 MG TAB PO SCH (20:53)
[2018-06-07 06:00] VITALS: BP 154/68
[2018-06-07] MEDS: VITAMIN D 1,000 INTERNATIONAL UNITS TABLET PO SCH (08:51)
[2018-06-07] MEDS: FUROSEMIDE 20 MG TAB PO SCH (08:51)
[2018-06-07] MEDS: CLOPIDOGREL 75 MG TAB PO SCH (08:52)
[2018-06-07] MEDS: LEVOTHYROXINE 50MCG TABLET (0.05MG) PO SCH (08:52)
[2018-06-07] MEDS: POTASSIUM CHLORIDE 10 MEQ SR TABLET PO SCH (08:52)
[2018-06-07] MEDS: QUEtiapine FUMARATE 12.5 MG HALF-TAB PO SCH ×2 (08:52→21:00)
[2018-06-07] MEDS: ATORVASTATIN 20 MG TAB PO SCH (21:28)
[2018-06-08 06:00] VITALS: BP 141/65
[2018-06-08] MEDS: QUEtiapine FUMARATE 12.5 MG HALF-TAB PO SCH ×2 (09:00→21:00)
[2018-06-08] MEDS: POTASSIUM CHLORIDE 10 MEQ SR TABLET PO SCH (09:50)
[2018-06-08] MEDS: FUROSEMIDE 20 MG TAB PO SCH (09:50)
[2018-06-08] MEDS: LEVOTHYROXINE 50MCG TABLET (0.05MG) PO SCH (09:50)
[2018-06-08] MEDS: VITAMIN D 1,000 INTERNATIONAL UNITS TABLET PO SCH (09:50)
[2018-06-08] MEDS: CLOPIDOGREL 75 MG TAB PO SCH (09:50)
[2018-06-08] MEDS: ATORVASTATIN 20 MG TAB PO SCH (22:17)
[2018-06-09 06:00] VITALS: BP 165/81
[2018-06-09] MEDS: CLOPIDOGREL 75 MG TAB PO SCH (08:19)
[2018-06-09] MEDS: FUROSEMIDE 20 MG TAB PO SCH (08:19)
[2018-06-09] MEDS: VITAMIN D 1,000 INTERNATIONAL UNITS TABLET PO SCH (08:19)
[2018-06-09] MEDS: POTASSIUM CHLORIDE 10 MEQ SR TABLET PO SCH (08:20)
[2018-06-09] MEDS: LEVOTHYROXINE 50MCG TABLET (0.05MG) PO SCH (08:20)
[2018-06-09] MEDS: QUEtiapine FUMARATE 12.5 MG HALF-TAB PO SCH ×2 (08:20→21:00)
[2018-06-09] MEDS: ATORVASTATIN 20 MG TAB PO SCH (21:14)
[2018-06-10 06:00] VITALS: BP 151/76
--- NOTE | 2018-06-10 07:56 | IPNPDOC ---
Subjective Date Seen The patient was seen on 06/10/18. Subjective Chief Complaint/HPI Patient sitting in bedside chair eating breakfast as I entered the room Constitutional: Denies: Chills Pulmonary: Denies: Cough Cardiovascular: Denies: Chest Pain, Palpitations Gastrointestinal: Denies: Nausea, Abdominal Pain, Diarrhea, Constipation Psych: Reports: Mood Normal Objective Physical Examination General Exam: Positive: Alert, No Acute Distress (sitting in bedside chair, pleasant and appropriate and cooperative) Eye Exam: Negative: Sclera icteric ENT Exam: Positive: Atraumatic, Mucous membr. moist/pink Chest Exam: Positive: Clear to auscultation, Normal air movement; Negative: Rales, Rhonchi, Wheezing Heart Exam: Positive: Rate Normal, Regular Rhythm, Normal S2 Abdomen Exam: Positive: Normal bowel sounds, Soft; Negative: Tenderness Extremity Exam: Negative: Edema Psych Exam: Positive: Mental status NL Assessment /Plan Problems (1) Vascular dementia Status: Chronic Problem Text: 06/10/18:PFS meeting today to discuss placement 06/03/2018: continue to work with PFS pm placement. 05/29 - Patient refuses to go home with family but seemed amenable to placement today. Very pleasant and cooperative today. Refusing Seroquel most days. 05/20 Pt cont to have capacity, cont to refuse placement however unsafe to be d/c alone. Refuses family assistance. 05/14 PFS cont to work with patient to arrange for placement, she cont to refuse anything but home to live alone at this time. 04/29 pt appropriate this morning. She is adament on going home to an apt to live alone. Refusing to work with staff to coordinate placement options. 04/18 after meeting with the patient this morning is appears as though she remains able to make her own decisions. We talked about her lack of a HCP, she advised that she simply had not been able to decide who she should appoint to make her decisions as she doesn't have much family. States that her son and his are not options for her and her sister Danette she doesn't believe would be up for the job. She states that she does not want to be resuscitated however. She does not want to be kept alive on machines and if she is no longer breathing she doesn't want any machines to change that. I inquired with her what she would want done if her heart stopped beating and she was very clear that she wanted nothing done. I asked her if we could complete a form noting such. She states that we could but she didn't want to sign up. I asked her if that was because she was unsure of her decision and she said absolutely not. I left the room to obtain a MOLST form as well as the Charge Nurse Lorraine. We held this conversation with Aide again where she very clearly verbalized her wish not to be resuscitated. The MOLST form was therefore completed with 2 witnesses and no patient signature. Pt is now DNR. 04/05 - Appreciate Psych consult. Could consider trying Seroquel 25 mg at hs to help with the agitation and sundowning. I have a call out to her son to discuss risks involve with using this type of medication in the elderly. I spoke with her son the other day and he would ideally like to take her home, but they cannot handle her if she becomes agitated like she did on the day of admission. They are afraid she will hurt herself or they may hurt her when trying to restrain her. She responded well to Haldol on admission without significant sedation, however using this medication alf carries increased risk of in elderly patients. In the meantime, we will start process of placement, but if she remains stable (not agitated, wandering, sleeping through the night, her family may be able to take her home Addendum: 04/08/18 - I was able to get ahold of Aide's son and discussed risks and benefits of using Seroquel including increased risk of . He would like to try it while she is here in the hospital to see if it controls her paranoid delusions and agitation enough to allow for them to handle her at home. (Progressively worsening now with episodes of delusions. she lives with her son and his and children. Family unable to mange her at home when she is delusional because she becomes agitated and is up all night waking family members) (2) Delusion of Status: Resolved Problem Text: CT abd/pelvis negative from 03/28/18. + hysterectomy. (3) Abdominal pain Status: Resolved Problem Text: No abd pain today. Abd x-ray neg. Renal US neg Abd x-ray neg, Renal US unrevealing CT Abd/pelvis negative from 03/28. (4) Hypothyroid Status: Chronic Response to Treatment: Stable (5) CKD (chronic kidney disease), stage III Status: Chronic Response to Treatment: Stable Plan/VTE VTE Prophylaxis Ordered?: Yes (plavix, TEDS/SCDs) Plan Anticipated Discharge: [facility] Attending Note: I saw and examined Ms. Benito, discussed with Dany Rivera DNP. Agree with her note as documented. (highballer) VS, I&O, 24H, Fishbone Vital Signs/I&O Vital Signs Date Time Temp Pulse Resp B/P (MAP) Pulse Ox O2 Delivery O2 Flow Rate FiO2 06/10/18 06:00 97.4 56 18 151/76 (101) 97 Room Air I&O- Last 24 Hours up to 6 AM 06/10/18 05:59 Intake Total 1320 ml Balance 1320 ml DANY RIVERA Jun 10, 2018 7:55 am Wilson Dailey MD Jun 10, 2018 9:29 pm
[2018-06-10] MEDS: LEVOTHYROXINE 50MCG TABLET (0.05MG) PO SCH (08:30)
[2018-06-10] MEDS: VITAMIN D 1,000 INTERNATIONAL UNITS TABLET PO SCH (08:30)
[2018-06-10] MEDS: FUROSEMIDE 20 MG TAB PO SCH (08:30)
[2018-06-10] MEDS: CLOPIDOGREL 75 MG TAB PO SCH (08:30)
[2018-06-10] MEDS: POTASSIUM CHLORIDE 10 MEQ SR TABLET PO SCH (08:30)
[2018-06-10] MEDS: QUEtiapine FUMARATE 12.5 MG HALF-TAB PO SCH ×2 (08:31→21:45)
[2018-06-10] MEDS: ATORVASTATIN 20 MG TAB PO SCH (21:45)
[2018-06-11 06:00] VITALS: BP 146/72
[2018-06-11] MEDS: CLOPIDOGREL 75 MG TAB PO SCH (08:42)
[2018-06-11] MEDS: QUEtiapine FUMARATE 12.5 MG HALF-TAB PO SCH ×2 (08:42→21:20)
[2018-06-11] MEDS: VITAMIN D 1,000 INTERNATIONAL UNITS TABLET PO SCH (08:42)
[2018-06-11] MEDS: LEVOTHYROXINE 50MCG TABLET (0.05MG) PO SCH (08:42)
[2018-06-11] MEDS: FUROSEMIDE 20 MG TAB PO SCH (08:42)
[2018-06-11] MEDS: POTASSIUM CHLORIDE 10 MEQ SR TABLET PO SCH (08:42)
[2018-06-11] MEDS: ATORVASTATIN 20 MG TAB PO SCH (21:20)
[2018-06-12 09:00] VITALS: BP 120/50
[2018-06-12] MEDS: POTASSIUM CHLORIDE 10 MEQ SR TABLET PO SCH (09:56)
[2018-06-12] MEDS: CLOPIDOGREL 75 MG TAB PO SCH (09:56)
[2018-06-12] MEDS: LEVOTHYROXINE 50MCG TABLET (0.05MG) PO SCH (09:56)
[2018-06-12] MEDS: QUEtiapine FUMARATE 12.5 MG HALF-TAB PO SCH ×2 (09:57→21:00)
[2018-06-12] MEDS: VITAMIN D 1,000 INTERNATIONAL UNITS TABLET PO SCH (09:57)
[2018-06-12] MEDS: FUROSEMIDE 20 MG TAB PO SCH (09:57)
--- NOTE | 2018-06-12 18:47 | CR ---
DATE OF CONSULTATION: 06/12/2018 CHIEF COMPLAINT: The patient, in fact, offers no complaints. Says is doing fine. SUBJECTIVE: She is 82 years old. Has a diagnosis of dementia, thought to be of the vascular type. I have been asked to see her by her clinicians. I spoke with Ms. Hancock, and I am asked to make an assessment regarding her ability to make decisions regarding her care and discharge. The chart is reviewed. Patient is interviewed. She was seen by my colleague, Dr. Villanueva, during the course of her stay here, about a month and a half ago, and was thought to have dementia and some behavioral disturbances as well, which had initially led her to be hospitalized. In fact, she was deluded that she was and was going through possible miscarriage. This has all cleared, and she describes those periods as "a dream," when she saw Dr. Villanueva. Subsequent to that, has generally been stable, from what I understand from the chart, nursing staff as well. The charge nurse was able to get and give collateral information. I am told there have been no major behavioral concerns with her while here. When she was seen by Dr. Villanueva, Seroquel was recommended. It was offered at 12.5 mg twice a day. She has consistently refused it. In fact, has taken it on only two or three occasions. No change in condition and effectively has not used any. Her clinicians, the staff, social work, have presented the idea of being discharged from the hospital and either returning to her son's place or a long-term. She apparently expressed agreement to go to a long-term, but when presented papers, in terms of applications, finances, etc., regarding that, she has declined signing those papers. I was asked to see her, as there are concerns that she may be "paranoid" about doing so. She does not get along with her son's partner and apparently does not want to return to his place because of the partner's presence there. She had been living there, but I am not quite sure for how long. The patient says she has been here for awhile. Was not able to give me exact dates and says likes it here and that they look after her. She is a bit annoyed and irritated when the purpose of the evaluation and my role was presented to her, and early on in the interview she expressed her irritability, indicated she was tired. Suggested that she did not want to continue answering these questions, but then settled down and was generally cooperative. She is quite adamant that she can make her own decisions, and when the matter regarding the forms is discussed, she says she has not signed them because she has not felt ready and has not decided whether she wants to go to a long-term or not. She also indicates she could go to, for example, a motel, and that she has the money for it. She has a difficult time understanding why we would be concerned about her decisions, particularly when she suggests that it is "none of your business." She is able to indicate that she felt that she was when she first came in but says that is all gone and realizes that was not true. She also suggests that she had difficulties delivering her son, who is now in his 40s. She says she gets along with him and that she does not want to make things difficult for him, and that for that reason tries to avoid clashes with his partner. Please refer to Dr. Villanueva's summary for details regarding background information and the mental status examination at the time of her examination, when she had score 22/30 in a Mini-Mental Status exam. Says she does not quite remember how she got to the hospital or why, but that it is related to her not getting along with son's partner, Claudia. During the interview, it is pointed out gently that she is getting irritated. She put that down as being "Congolese" and that that was the reason for her irritability. MENTAL STATUS EXAMINATION: She is fairly neat. She is lying in bed. She is somewhat superficially cooperative initially, then irritable and expressed the irritability but then quite calm and was calm for the bulk of the interview. No overt agitation. No psychomotor retardation. No abnormal movements noted. She is coherent, at times a bit guarded but more forthcoming as the interview proceeded. She denies any thoughts of harming herself. No homicidal ideas or intents. Does not appear internally preoccupied. There were no overt delusions elicited. No fluctuation of consciousness. Intellect is average. She is alert, able to maintain a shift in attention quite adequately. She was not oriented to place initially, thought we were in [place]. Knew it was a hospital, but when directed, was able to point out it was [facility]. She knew the county. She knew the season. Did not know the exact date, "I don't have a calendar," but was able to indicate it was May and that [place] was around the corner. She can spell the word "house" forward but had difficulties doing it backward. Can recall three out of three objects after 5 minutes with some minor prompting. 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 She does not quite remember when she got to the hospital or why but is able to indicate it is partly because she cannot get along with her son's partner. Says she feels good here and that she is looked after. Is aware that they had presented her, her clinicians here, with the idea of going to a long-term. She says she has not signed the forms, as she has not decided yet. She suggests she is confident she can make her own decisions. She is not fully oriented to time but is able to give a good approximation with some assistance. Knows it is almost [place]. She displays no overt delusions at present. She has some difficulties with concentration at times. She can recall three out of three objects after 5 minutes with a bit of prompting. There is no overt psychosis. No suicidal thoughts or intents nor any homicidal thoughts. Though she may have cognitive deficits, they appear to be mild to moderate. She is able to indicate to a fair extent her reason for being in the hospital, her desire not to return to her son's place (she is quite clear on that), and the alternative recommendation to go to a long-term. She understands fairly well the reasons why she cannot remain in the hospital snf. Given the above, it is my opinion that she does at the moment have capacity to make decisions regarding her care and discharge planning. Given the nature of the cognitive deficits, the dementia, and her age, it is possible her clinical condition may change, which may impact her capacity as well. I would suggest working with her, taking adequate time explaining procedures, which may require repetition, and working with her son. I do not see much point in her getting Seroquel at this point. No overt delusions. Her behavior has not been problematic for the bulk of her being here, and she has hardly used the Seroquel. Thank you for the consult. If any questions, please call. The assessment took 45 minutes. MONI
[2018-06-12] MEDS: ATORVASTATIN 20 MG TAB PO SCH (21:00)
[2018-06-13 06:00] VITALS: BP 169/83
[2018-06-13] MEDS: QUEtiapine FUMARATE 12.5 MG HALF-TAB PO SCH (09:00)
[2018-06-13] MEDS: VITAMIN D 1,000 INTERNATIONAL UNITS TABLET PO SCH (09:31)
[2018-06-13] MEDS: POTASSIUM CHLORIDE 10 MEQ SR TABLET PO SCH (09:31)
[2018-06-13] MEDS: CLOPIDOGREL 75 MG TAB PO SCH (09:32)
[2018-06-13] MEDS: LEVOTHYROXINE 50MCG TABLET (0.05MG) PO SCH (09:32)
[2018-06-13] MEDS: FUROSEMIDE 20 MG TAB PO SCH (09:32)
[2018-06-13] MEDS: ATORVASTATIN 20 MG TAB PO SCH (20:18)
[2018-06-14 06:00] VITALS: BP 170/73
[2018-06-14] MEDS: POTASSIUM CHLORIDE 10 MEQ SR TABLET PO SCH (08:20)
[2018-06-14] MEDS: FUROSEMIDE 20 MG TAB PO SCH (08:20)
[2018-06-14] MEDS: LEVOTHYROXINE 50MCG TABLET (0.05MG) PO SCH (08:20)
[2018-06-14] MEDS: CLOPIDOGREL 75 MG TAB PO SCH (08:20)
[2018-06-14] MEDS: VITAMIN D 1,000 INTERNATIONAL UNITS TABLET PO SCH (08:20)
[2018-06-14] MEDS: ATORVASTATIN 20 MG TAB PO SCH (20:54)
[2018-06-15 06:00] VITALS: BP 136/62
[2018-06-15] MEDS: POTASSIUM CHLORIDE 10 MEQ SR TABLET PO SCH (09:31)
[2018-06-15] MEDS: LEVOTHYROXINE 50MCG TABLET (0.05MG) PO SCH (09:31)
[2018-06-15] MEDS: FUROSEMIDE 20 MG TAB PO SCH (09:31)
[2018-06-15] MEDS: VITAMIN D 1,000 INTERNATIONAL UNITS TABLET PO SCH (09:31)
[2018-06-15] MEDS: CLOPIDOGREL 75 MG TAB PO SCH (09:31)
[2018-06-15] MEDS: ATORVASTATIN 20 MG TAB PO SCH (20:43)
[2018-06-16 06:00] VITALS: BP 175/77
[2018-06-16] MEDS: ACETAMINOPHEN 500 MG TAB PO PRN (10:38)
[2018-06-16] MEDS: VITAMIN D 1,000 INTERNATIONAL UNITS TABLET PO SCH (10:38)
[2018-06-16] MEDS: CLOPIDOGREL 75 MG TAB PO SCH (10:38)
[2018-06-16] MEDS: POTASSIUM CHLORIDE 10 MEQ SR TABLET PO SCH (10:39)
[2018-06-16] MEDS: FUROSEMIDE 20 MG TAB PO SCH (10:39)
[2018-06-16] MEDS: LEVOTHYROXINE 50MCG TABLET (0.05MG) PO SCH (10:39)
[2018-06-16] MEDS: ATORVASTATIN 20 MG TAB PO SCH (20:48)
[2018-06-17 06:00] VITALS: BP 144/74
[2018-06-17] MEDS: ACETAMINOPHEN 500 MG TAB PO PRN ×2 (08:24→17:34)
[2018-06-17] MEDS: POTASSIUM CHLORIDE 10 MEQ SR TABLET PO SCH (08:25)
[2018-06-17] MEDS: FUROSEMIDE 20 MG TAB PO SCH (08:25)
[2018-06-17] MEDS: CLOPIDOGREL 75 MG TAB PO SCH (08:25)
[2018-06-17] MEDS: VITAMIN D 1,000 INTERNATIONAL UNITS TABLET PO SCH (08:25)
[2018-06-17] MEDS: LEVOTHYROXINE 50MCG TABLET (0.05MG) PO SCH (08:25)
--- NOTE | 2018-06-17 08:32 | IPNPDOC ---
Subjective Date Seen The patient was seen on 06/17/18. Subjective Chief Complaint/HPI Pt this morning without new concerns. She is sleeping well, getting around well and eager to leave the hospital. General: Denies: Fatigue Constitutional: Denies: Chills, Fever Skin: Denies: Rash Pulmonary: Denies: Dyspnea, Cough Cardiovascular: Denies: Chest Pain, Palpitations Gastrointestinal: Denies: Nausea, Vomiting Genitourinary: Denies: Dysuria Musculoskeletal: Denies: Back Pain Neurological: Denies: Weakness Psych: Reports: Mood Normal Objective Physical Examination General Exam: Positive: Alert, No Acute Distress (in bed, awake, pleasant) Eye Exam: Negative: Sclera icteric ENT Exam: Positive: Atraumatic, Mucous membr. moist/pink Chest Exam: Positive: Clear to auscultation, Normal air movement; Negative: Rales, Rhonchi, Wheezing Heart Exam: Positive: Rate Normal, Regular Rhythm, Normal S2 Abdomen Exam: Positive: Normal bowel sounds, Soft; Negative: Tenderness Extremity Exam: Negative: Edema Psych Exam: Positive: Mental status NL Assessment /Plan Problems (1) Vascular dementia Status: Chronic Problem Text: 06/17 Cont to work with pt on placement. 06/10/18:PFS meeting today to discuss placement 06/03/2018: continue to work with PFS pm placement. 05/29 - Patient refuses to go home with family but seemed amenable to placement today. Very pleasant and cooperative today. Refusing Seroquel most days. 05/20 Pt cont to have capacity, cont to refuse placement however unsafe to be d/c alone. Refuses family assistance. 05/14 PFS cont to work with patient to arrange for placement, she cont to refuse anything but home to live alone at this time. 04/29 pt appropriate this morning. She is adament on going home to an apt to live alone. Refusing to work with staff to coordinate placement options. 04/18 after meeting with the patient this morning is appears as though she remains able to make her own decisions. We talked about her lack of a HCP, she advised that she simply had not been able to decide who she should appoint to make her decisions as she doesn't have much family. States that her son and his are not options for her and her sister Danette she doesn't believe would be up for the job. She states that she does not want to be resuscitated however. She does not want to be kept alive on machines and if she is no longer breathing she doesn't want any machines to change that. I inquired with her what she would want done if her heart stopped beating and she was very clear that she wanted nothing done. I asked her if we could complete a form noting such. She states that we could but she didn't want to sign up. I asked her if that was because she was unsure of her decision and she said absolutely not. I left the room to obtain a MOLST form as well as the Charge Nurse Lorraine. We held this conversation with Aide again where she very clearly verbalized her wish not to be resuscitated. The MOLST form was therefore completed with 2 witnesses and no patient signature. Pt is now DNR. 04/05 - Appreciate Psych consult. Could consider trying Seroquel 25 mg at hs to help with the agitation and sundowning. I have a call out to her son to discuss risks involve with using this type of medication in the elderly. I spoke with her son the other day and he would ideally like to take her home, but they cannot handle her if she becomes agitated like she did on the day of admission. They are afraid she will hurt herself or they may hurt her when trying to restrain her. She responded well to Haldol on admission without significant sedation, however using this medication long-term carries increased risk of in elderly patients. In the meantime, we will start process of placement, but if she remains stable (not agitated, wandering, sleeping through the night, her family may be able to take her home Addendum: 04/08/18 - I was able to get ahold of Aide's son and discussed risks and benefits of using Seroquel including increased risk of . He woul d like to try it while she is here in the hospital to see if it controls her paranoid delusions and agitation enough to allow for them to handle her at home. (Progressively worsening now with episodes of delusions. she lives with her son and his and children. Family unable to mange her at home when she is delusional because she becomes agitated and is up all night waking family members) (2) Delusion of Status: Resolved Problem Text: CT abd/pelvis negative from 03/28/18. + hysterectomy. (3) Abdominal pain Status: Resolved Problem Text: No abd pain today. Abd x-ray neg. Renal US neg Abd x-ray neg, Renal US unrevealing CT Abd/pelvis negative from 03/28. (4) Hypothyroid Status: Chronic Response to Treatment: Stable (5) CKD (chronic kidney disease), stage III Status: Chronic Response to Treatment: Stable Plan/VTE VTE Prophylaxis Ordered?: Yes (plavix, TEDS/SCDs) Plan Anticipated Discharge: [facility] VS, I&O, 24H, Fishbone Vital Signs/I&O Vital Signs Date Time Temp Pulse Resp B/P (MAP) Pulse Ox O2 Delivery O2 Flow Rate FiO2 06/17/18 06:00 97.3 71 16 144/74 (97) 95 Room Air I&O- Last 24 Hours up to 6 AM 06/17/18 06:00 Intake Total 2180 ml Output Total 800 ml Balance 1380 ml BRIANNA MO PA-C Jun 17, 2018 08:32
[2018-06-17] MEDS: ATORVASTATIN 20 MG TAB PO SCH (21:40)
[2018-06-18 06:00] VITALS: BP 156/84
[2018-06-18] MEDS: POTASSIUM CHLORIDE 10 MEQ SR TABLET PO SCH (09:07)
[2018-06-18] MEDS: CLOPIDOGREL 75 MG TAB PO SCH (09:07)
[2018-06-18] MEDS: VITAMIN D 1,000 INTERNATIONAL UNITS TABLET PO SCH (09:07)
[2018-06-18] MEDS: LEVOTHYROXINE 50MCG TABLET (0.05MG) PO SCH (09:07)
[2018-06-18] MEDS: FUROSEMIDE 20 MG TAB PO SCH (09:08)
[2018-06-18] MEDS: ATORVASTATIN 20 MG TAB PO SCH (20:24)
[2018-06-19 06:00] VITALS: BP 176/72
[2018-06-19] MEDS: VITAMIN D 1,000 INTERNATIONAL UNITS TABLET PO SCH (08:01)
[2018-06-19] MEDS: CLOPIDOGREL 75 MG TAB PO SCH (08:01)
[2018-06-19] MEDS: LEVOTHYROXINE 50MCG TABLET (0.05MG) PO SCH (08:01)
[2018-06-19] MEDS: FUROSEMIDE 20 MG TAB PO SCH (08:01)
[2018-06-19] MEDS: POTASSIUM CHLORIDE 10 MEQ SR TABLET PO SCH (08:02)
[2018-06-19] MEDS: ATORVASTATIN 20 MG TAB PO SCH (20:14)
[2018-06-20 06:00] VITALS: BP 156/70
[2018-06-20] MEDS: LEVOTHYROXINE 50MCG TABLET (0.05MG) PO SCH (08:47)
[2018-06-20] MEDS: VITAMIN D 1,000 INTERNATIONAL UNITS TABLET PO SCH (08:47)
[2018-06-20] MEDS: CLOPIDOGREL 75 MG TAB PO SCH ×2 (08:47→08:55)
[2018-06-20] MEDS: POTASSIUM CHLORIDE 10 MEQ SR TABLET PO SCH (08:47)
[2018-06-20] MEDS: FUROSEMIDE 20 MG TAB PO SCH (08:47)
[2018-06-20] MEDS: ATORVASTATIN 20 MG TAB PO SCH (21:00)
[2018-06-21 06:00] VITALS: BP 154/72
[2018-06-21] MEDS: POTASSIUM CHLORIDE 10 MEQ SR TABLET PO SCH (10:27)
[2018-06-21] MEDS: LEVOTHYROXINE 50MCG TABLET (0.05MG) PO SCH (10:28)
[2018-06-21] MEDS: VITAMIN D 1,000 INTERNATIONAL UNITS TABLET PO SCH (10:28)
[2018-06-21] MEDS: CLOPIDOGREL 75 MG TAB PO SCH (10:30)
[2018-06-21] MEDS: FUROSEMIDE 20 MG TAB PO SCH (10:30)
[2018-06-21] MEDS: ATORVASTATIN 20 MG TAB PO SCH (19:30)
[2018-06-22 06:00] VITALS: BP 169/77
[2018-06-22] MEDS: LEVOTHYROXINE 50MCG TABLET (0.05MG) PO SCH (09:35)
[2018-06-22] MEDS: FUROSEMIDE 20 MG TAB PO SCH (09:36)
[2018-06-22] MEDS: POTASSIUM CHLORIDE 10 MEQ SR TABLET PO SCH (09:36)
[2018-06-22] MEDS: VITAMIN D 1,000 INTERNATIONAL UNITS TABLET PO SCH (09:36)
[2018-06-22] MEDS: CLOPIDOGREL 75 MG TAB PO SCH (09:38)
[2018-06-22] MEDS: ATORVASTATIN 20 MG TAB PO SCH (21:35)
[2018-06-23 06:00] VITALS: BP 168/70
[2018-06-23] MEDS: ACETAMINOPHEN 500 MG TAB PO PRN (11:07)
[2018-06-23] MEDS: LEVOTHYROXINE 50MCG TABLET (0.05MG) PO SCH (11:08)
[2018-06-23] MEDS: CLOPIDOGREL 75 MG TAB PO SCH (11:08)
[2018-06-23] MEDS: FUROSEMIDE 20 MG TAB PO SCH (11:08)
[2018-06-23] MEDS: POTASSIUM CHLORIDE 10 MEQ SR TABLET PO SCH (11:08)
[2018-06-23] MEDS: VITAMIN D 1,000 INTERNATIONAL UNITS TABLET PO SCH (11:08)
[2018-06-23] MEDS: ATORVASTATIN 20 MG TAB PO SCH (21:19)
[2018-06-24 06:00] VITALS: BP 155/74
[2018-06-24] MEDS: LEVOTHYROXINE 50MCG TABLET (0.05MG) PO SCH (09:00)
[2018-06-24] MEDS: FUROSEMIDE 20 MG TAB PO SCH (09:00)
[2018-06-24] MEDS: CLOPIDOGREL 75 MG TAB PO SCH (09:00)
[2018-06-24] MEDS: POTASSIUM CHLORIDE 10 MEQ SR TABLET PO SCH (09:00)
[2018-06-24] MEDS: VITAMIN D 1,000 INTERNATIONAL UNITS TABLET PO SCH (09:00)
--- NOTE | 2018-06-24 12:10 | IPNPDOC ---
Subjective Date Seen The patient was seen on 06/24/18. Subjective Chief Complaint/HPI Patient seen and examined at bedside today. Upon entering room, was lying comfortably in bed asleep. After waking patient up, she denied fevers, chills, chest pain, shortness of breath, pain anywhere. Stated her stomach was empty. I saw that her breakfast tray had been untouched and encouraged her to eat if she was hungry. In addition, patient asked if her son was there for which I reported no and that she could probably call him. Patient was oriented to her first and last name but not to place or time. Patient also stated that she was not interested in going to a halfway. Constitutional: Denies: Chills, Fever Pulmonary: Denies: Dyspnea Cardiovascular: Denies: Chest Pain Musculoskeletal: Denies: Joint Pain, Muscle Pain Objective Physical Examination General Exam: Positive: Alert, No Acute Distress (in bed, awake, pleasant) Eye Exam: Positive: Conjunctiva & lids normal; Negative: Sclera icteric ENT Exam: Positive: Atraumatic Neck Exam: Positive: Supple; Negative: JVD Chest Exam: Positive: Clear to auscultation, Normal air movement; Negative: Rales, Rhonchi, Wheezing Heart Exam: Positive: Rate Normal, Regular Rhythm, Normal S1, Normal S2; Negative: Murmurs Abdomen Exam: Positive: Normal bowel sounds, Soft; Negative: Tenderness Extremity Exam: Negative: Clubbing, Cyanosis, Edema Skin Exam: Positive: Nl turgor and temperature; Negative: Rash Neuro Exam: Positive: Normal Speech Psych Exam: Positive: Mental status NL; Negative: Oriented x 3 (only oriented to person.) Assessment /Plan Problems (1) Vascular dementia Status: Chronic Problem Text: 06/24: Spoke to Evy of [facility] who reports there are no updates yet as to placement for patient. Patient herself reported to me that she is not interested in going to a halfway. 06/17 Cont to work with pt on placement. 06/10/18:PFS meeting today to discuss placement 06/03/2018: continue to work with [facility] pm placement. 05/29 - Patient refuses to go home with family but seemed amenable to placement today. Very pleasant and cooperative today. Refusing Seroquel most days. 05/20 Pt cont to have capacity, cont to refuse placement however unsafe to be d/c alone. Refuses family assistance. 05/14 [facility] cont to work with patient to arrange for placement, she cont to refuse anything but home to live alone at this time. 04/29 pt appropriate this morning. She is adament on going home to an apt to live alone. Refusing to work with staff to coordinate placement options. 04/18 after meeting with the patient this morning is appears as though she remains able to make her own decisions. We talked about her lack of a HCP, she advised that she simply had not been able to decide who she should appoint to make her decisions as she doesn't have much family. States that her son and his are not options for her and her sister Danette she doesn't believe would be up for the job. She states that she does not want to be resuscitated however. She does not want to be kept alive on machines and if she is no longer breathing she doesn't want any machines to change that. I inquired with her what she would want done if her heart stopped beating and she was very clear that she wanted nothing done. I asked her if we could complete a form noting such. She states that we could but she didn't want to sign up. I asked her if that was because she was unsure of her decision and she said absolutely not. I left the room to obtain a MOLST form as well as the Charge Nurse Lorraine. We held this conv ersation with Aide again where she very clearly verbalized her wish not to be resuscitated. The MOLST form was therefore completed with 2 witnesses and no patient signature. Pt is now DNR. 04/05 - Appreciate Psych consult. Could consider trying Seroquel 25 mg at hs to help with the agitation and sundowning. I have a call out to her son to discuss risks involve with using this type of medication in the elderly. I spoke with her son the other day and he would ideally like to take her home, but they cannot handle her if she becomes agitated like she did on the day of admission. They are afraid she will hurt herself or they may hurt her when trying to restrain her. She responded well to Haldol on admission without significant sedation, however using this medication halfway carries increased risk of in elderly patients. In the meantime, we will start process of placement, but if she remains stable (not agitated, wandering, sleeping through the night, her family may be able to take her home Addendum: 04/08/18 - I was able to get ahold of Aide's son and discussed risks and benefits of using Seroquel including increased risk of . He would like to try it while she is here in the hospital to see if it controls her paranoid delusions and agitation enough to allow for them to handle her at home. (Progressively worsening now with episodes of delusions. she lives with her son and his and children. Family unable to mange her at home when she is delusional because she becomes agitated and is up all night waking family members) (2) Delusion of Status: Resolved Problem Text: CT abd/pelvis negative from 03/28/18. + hysterectomy. (3) Abdominal pain Status: Resolved Problem Text: No abd pain today. Abd x-ray neg. Renal US neg Abd x-ray neg, Renal US unrevealing CT Abd/pelvis negative from 03/28. (4) Hypothyroid Status: Chronic Response to Treatment: Stable (5) CKD (chronic kidney disease), stage III Status: Chronic Response to Treatment: Stable Plan/VTE VTE Prophylaxis Ordered?: Yes (plavix, TEDS/SCDs) Plan Anticipated Discharge: Intermediate Disposition Pending [facility] placement. VS, I&O, 24H, Fishbone Vital Signs/I&O Vital Signs Date Time Temp Pulse Resp B/P (MAP) Pulse Ox O2 Delivery O2 Flow Rate FiO2 06/24/18 06:00 96.9 74 20 155/74 (101) 97 Room Air I&O- Last 24 Hours up to 6 AM 06/24/18 06:00 Intake Total 2160 ml Balance 2160 ml GME ATTESTATION GME ATTESTATION My faculty preceptor for this patient encounter was Dr. Christen Turner, and was physically present during the encounter and was fully available. All aspects of the patient interview, examination, medical decision making process, and medical care plan development were reviewed and approved by the faculty preceptor. The faculty preceptor is aware and concurs with the plan as stated in the body of this note and will attest to such by his/her cosignature. MARCUS OLSON DO Jun 24, 2018 12:10
[2018-06-24] MEDS: ATORVASTATIN 20 MG TAB PO SCH (21:28)
[2018-06-25 06:00] VITALS: BP 139/60
[2018-06-25] MEDS: CLOPIDOGREL 75 MG TAB PO SCH (09:00)
[2018-06-25] MEDS: POTASSIUM CHLORIDE 10 MEQ SR TABLET PO SCH (10:43)
[2018-06-25] MEDS: FUROSEMIDE 20 MG TAB PO SCH (10:43)
[2018-06-25] MEDS: VITAMIN D 1,000 INTERNATIONAL UNITS TABLET PO SCH (10:43)
[2018-06-25] MEDS: LEVOTHYROXINE 50MCG TABLET (0.05MG) PO SCH (10:44)
[2018-06-25] MEDS: ATORVASTATIN 20 MG TAB PO SCH (20:18)
[2018-06-26 06:00] VITALS: BP 123/72
[2018-06-26] MEDS: CLOPIDOGREL 75 MG TAB PO SCH (09:00)
[2018-06-26] MEDS: FUROSEMIDE 20 MG TAB PO SCH (10:15)
[2018-06-26] MEDS: LEVOTHYROXINE 50MCG TABLET (0.05MG) PO SCH (10:15)
[2018-06-26] MEDS: POTASSIUM CHLORIDE 10 MEQ SR TABLET PO SCH (10:15)
[2018-06-26] MEDS: VITAMIN D 1,000 INTERNATIONAL UNITS TABLET PO SCH (10:15)
[2018-06-26] MEDS: ATORVASTATIN 20 MG TAB PO SCH (20:55)
[2018-06-27 06:00] VITALS: BP 176/81
[2018-06-27] MEDS: FUROSEMIDE 20 MG TAB PO SCH (08:45)
[2018-06-27] MEDS: POTASSIUM CHLORIDE 10 MEQ SR TABLET PO SCH (08:45)
[2018-06-27] MEDS: VITAMIN D 1,000 INTERNATIONAL UNITS TABLET PO SCH (08:45)
[2018-06-27] MEDS: CLOPIDOGREL 75 MG TAB PO SCH (08:46)
[2018-06-27] MEDS: LEVOTHYROXINE 50MCG TABLET (0.05MG) PO SCH (08:46)
[2018-06-27] MEDS: ATORVASTATIN 20 MG TAB PO SCH (21:23)
[2018-06-28] MEDS: CLOPIDOGREL 75 MG TAB PO SCH (09:00)
[2018-06-28] MEDS: VITAMIN D 1,000 INTERNATIONAL UNITS TABLET PO SCH (11:28)
[2018-06-28] MEDS: POTASSIUM CHLORIDE 10 MEQ SR TABLET PO SCH (11:28)
[2018-06-28] MEDS: LEVOTHYROXINE 50MCG TABLET (0.05MG) PO SCH (11:28)
[2018-06-28] MEDS: FUROSEMIDE 20 MG TAB PO SCH (11:29)
[2018-06-28] MEDS: ATORVASTATIN 20 MG TAB PO SCH (21:08)
[2018-06-29 06:00] VITALS: BP 141/63
[2018-06-29] MEDS: POTASSIUM CHLORIDE 10 MEQ SR TABLET PO SCH (09:54)
[2018-06-29] MEDS: CLOPIDOGREL 75 MG TAB PO SCH ×2 (09:54→10:04)
[2018-06-29] MEDS: FUROSEMIDE 20 MG TAB PO SCH (09:54)
[2018-06-29] MEDS: LEVOTHYROXINE 50MCG TABLET (0.05MG) PO SCH (09:54)
[2018-06-29] MEDS: VITAMIN D 1,000 INTERNATIONAL UNITS TABLET PO SCH (09:54)
[2018-06-29] MEDS: ATORVASTATIN 20 MG TAB PO SCH (19:52)
[2018-06-30 06:00] VITALS: BP 158/63
[2018-06-30] MEDS: VITAMIN D 1,000 INTERNATIONAL UNITS TABLET PO SCH (10:11)
[2018-06-30] MEDS: FUROSEMIDE 20 MG TAB PO SCH (10:11)
[2018-06-30] MEDS: LEVOTHYROXINE 50MCG TABLET (0.05MG) PO SCH (10:11)
[2018-06-30] MEDS: POTASSIUM CHLORIDE 10 MEQ SR TABLET PO SCH (10:12)
[2018-06-30] MEDS: CLOPIDOGREL 75 MG TAB PO SCH (10:12)
[2018-06-30] MEDS: ATORVASTATIN 20 MG TAB PO SCH (21:26)
[2018-07-01] MEDS: CLOPIDOGREL 75 MG TAB PO SCH ×2 (09:00→10:19)
[2018-07-01] MEDS: LEVOTHYROXINE 50MCG TABLET (0.05MG) PO SCH (10:18)
[2018-07-01] MEDS: VITAMIN D 1,000 INTERNATIONAL UNITS TABLET PO SCH (10:18)
[2018-07-01] MEDS: POTASSIUM CHLORIDE 10 MEQ SR TABLET PO SCH (10:19)
[2018-07-01] MEDS: FUROSEMIDE 20 MG TAB PO SCH (10:19)
--- NOTE | 2018-07-01 11:04 | IPNPDOC ---
Subjective Date Seen The patient was seen on 07/01/18. Subjective Chief Complaint/HPI Patient is sitting on the chair comfortably with hair styling rolls on her hair. Patient states that she is feeling good. Patient does appear to be somehow disoriented during conversation although she can answer some questions. She states that she is not ready to go to correction or home yet. Patient is oriented to her name only but was unable to answer the year and place. Denies abdominal pain or headache, and the rest of the ROS was unobtainable d/t patient's mental status. It was reported that the patient was having lots of hallucinations including seeing her and stating there were phone calls when there was actually not. General: Reports: ROS Unobtainable (Majority of ROS unobtainable d/t patient mental status) ENT: Denies: Head Aches Gastrointestinal: Reports: Other Symptoms (Denies bowel movement incontinence) Genitourinary: Reports: Other Symptoms (Patient states yes when being asked the question" are you peeing well"); Denies: Incontinence (Denies urinary incontinence) Musculoskeletal: Reports: Back Pain (left sided back pain) Objective Physical Examination General Exam: Positive: Alert, No Acute Distress (sitting on the chair) Eye Exam: Positive: Conjunctiva & lids normal; Negative: Sclera icteric ENT Exam: Positive: Atraumatic, Other ENT (Multiple teeth loss) Neck Exam: Positive: Supple; Negative: JVD Chest Exam: Positive: Clear to auscultation, Normal air movement; Negative: Rales, Rhonchi, Wheezing Heart Exam: Positive: Rate Normal, Regular Rhythm, Normal S1, Normal S2; Negative: Murmurs Abdomen Exam: Positive: Normal bowel sounds, Soft; Negative: Tenderness Extremity Exam: Negative: Clubbing, Cyanosis, Edema Skin Exam: Positive: Nl turgor and temperature Psych Exam: Negative: Memory Intact, Oriented x 3 (Alert and Oriented to name only) Assessment /Plan Problems (1) Vascular dementia Status: Chronic Problem Text: 06/24: Spoke to Evy of [facility] who reports there are no updates yet as to placement for patient. Patient herself reported to me that she is not interested in going to a correction. 06/17 Cont to work with pt on placement. 06/10/18:[facility]FS meeting today to discuss placement 06/03/2018: continue to work with [facility] pm placement. 05/29 - Patient refuses to go home with family but seemed amenable to placement today. Very pleasant and cooperative today. Refusing Seroquel most days. 05/20 Pt cont to have capacity, cont to refuse placement however unsafe to be d/c alone. Refuses family assistance. 05/14 [facility] cont to work with patient to arrange for placement, she cont to refuse anything but home to live alone at this time. 04/29 pt appropriate this morning. She is adament on going home to an apt to live alone. Refusing to work with staff to coordinate placement options. 07/01/2018 Pt stable this morning. She refuses to go to correction or return to home. 04/18 after meeting with the patient this morning is appears as though she remains able to make her own decisions. We talked about her lack of a HCP, she advised that she simply had not been able to decide who she should appoint to make her decisions as she doesn't have much family. States that her son and his are not options for her and her sister Danette she doesn't believe would be up for the job. She states that she does not want to be resuscitated however. She does not want to be kept alive on machines and if she is no longer breathing she doesn't want any machines to change that. I inquired with her what she would want done if her heart stopped beating and she was very clear that she wanted nothing done. I asked her if we could complete a form noting such. She states that we could but she didn't want to sign up. I asked her if that was because she was unsure of her decision and she said absolutely not. I left the room to obtain a MOLST form as well as the Charge Nurse Lorraine. We held this conversation with Aide again where she very clearly verbalized her wish not to be resuscitated. The MOLST form was therefore completed with 2 witnesses and no patient signature. Pt is now DNR. 04/05 - Appreciate Psych consult. Could consider trying Seroquel 25 mg at hs to help with the agitation and sundowning. I have a call out to her son to discuss risks involve with using this type of medication in the elderly. I spoke with her son the other day and he would ideally like to take her home, but they cannot handle her if she becomes agitated like she did on the day of admission. They are afraid she will hurt herself or they may hurt her when trying to restrain her. She responded well to Haldol on admission without significant sedation, however using this medication penitentiary carries increased risk of in elderly patients. In the meantime, we will start process of placement, but if she remains stable (not agitated, wandering, sleeping through the night, her family may be able to take her home Addendum: 04/08/18 - I was able to get ahold of Aide's son and discussed risks and benefits of using Seroquel including increased risk of . He would like to try it while she is here in the hospital to see if it controls her paranoid delusions and agitation enough to allow for them to handle her at home. (Progressively worsening now with episodes of delusions. she lives with her son and his and children. Family unable to mange her at home when she is delusional because she becomes agitated and is up all night waking family members) (2) Delusion of Status: Resolved Problem Text: CT abd/pelvis negative from 03/28/18. + hysterectomy. (3) Abdominal pain Status: Resolved Problem Text: Patient denies abdominal pain Abd x-ray neg. Renal US neg. CT Abd/pelvis negative from 03/28. (4) Hypothyroid Status: Chronic Response to Treatment: Stable Problem Text: 07/01/18 Continue levothyroxine 25mcg PO daily (5) CKD (chronic kidney disease), stage III Status: Chronic Response to Treatment: Stable Plan/VTE VTE Prophylaxis Ordered?: Yes (plavix, TEDS/SCDs) Plan Anticipated Discharge: [facility] Disposition pending placement VS, I&O, 24H, Fishbone Vital Signs/I&O Vital Signs Date Time Temp Pulse Resp B/P (MAP) Pulse Ox O2 Delivery O2 Flow Rate FiO2 07/01/18 06:00 98.1 73 18 97 06/30/18 06:00 158/63 (94) Room Air I&O- Last 24 Hours up to 6 AM 07/01/18 06:00 Intake Total 0 ml Output Total 0 ml Balance 0 ml CRISTINA JACQUES DO Jul 01, 2018 11:04
[2018-07-01] MEDS: ATORVASTATIN 20 MG TAB PO SCH (19:56)
[2018-07-02 06:00] VITALS: BP 123/62
[2018-07-02] MEDS: VITAMIN D 1,000 INTERNATIONAL UNITS TABLET PO SCH (09:18)
[2018-07-02] MEDS: FUROSEMIDE 20 MG TAB PO SCH (09:18)
[2018-07-02] MEDS: LEVOTHYROXINE 50MCG TABLET (0.05MG) PO SCH (09:19)
[2018-07-02] MEDS: POTASSIUM CHLORIDE 10 MEQ SR TABLET PO SCH (09:19)
[2018-07-02] MEDS: CLOPIDOGREL 75 MG TAB PO SCH (09:20)
--- NOTE | 2018-07-02 14:26 | IPNPDOC ---
Subjective Date Seen The patient was seen on 07/02/18. Subjective Chief Complaint/HPI Patient is sitting on the chair comfortably. She said she feels fine. Patient initially express the wish not to go to intermediate or return to home. After discussion with [facility], patient agrees to go to intermediate. She denies any chest pain, palpitation, SOB, nausea, or vomiting. She is tolerating PO diet well General: Reports: Normal Appetite Constitutional: Denies: Chills, Fever ENT: Denies: Head Aches Pulmonary: Denies: Dyspnea Cardiovascular: Denies: Chest Pain, Palpitations Gastrointestinal: Denies: Nausea, Vomiting, Abdominal Pain Objective Physical Examination General Exam: Positive: Alert, No Acute Distress (sitting on the chair) Eye Exam: Positive: Conjunctiva & lids normal; Negative: Sclera icteric ENT Exam: Positive: Atraumatic, Other ENT (Multiple teeth loss) Neck Exam: Positive: Supple; Negative: JVD Chest Exam: Positive: Clear to auscultation, Normal air movement; Negative: Rales, Rhonchi, Wheezing Heart Exam: Positive: Rate Normal, Regular Rhythm, Normal S1, Normal S2; Negative: Murmurs Abdomen Exam: Positive: Normal bowel sounds, Soft; Negative: Tenderness Extremity Exam: Negative: Clubbing, Cyanosis, Edema Skin Exam: Positive: Nl turgor and temperature Neuro Exam: Positive: Normal Speech Psych Exam: Positive: Mood NL; Negative: Oriented x 3 (A&O to name only) Assessment /Plan Problems (1) Vascular dementia Status: Chronic Problem Text: 07/02/2018. Discussed with psychiatrist Dr. Santiago to re-evaluate patient's mentality. Patient initially refuses to go to either intermediate or home this morning. After discussion with nursing staff and [facility] workers, she agrees to go to intermediate. Bed offer available. Likely placement tomorrow morning. 07/01/2018 Pt stable this morning. She refuses to go to intermediate or return to home. 06/24: Spoke to Evy of [facility] who reports there are no updates yet as to placement for patient. Patient herself reported to me that she is not interested in going to a intermediate. 06/17 Cont to work with pt on placement. 06/10/18:[facility] meeting today to discuss placement 06/03/2018: continue to work with [facility] pm placement. 05/29 - Patient refuses to go home with family but seemed amenable to placement today. Very pleasant and cooperative today. Refusing Seroquel most days. 05/20 Pt cont to have capacity, cont to refuse placement however unsafe to be d/c alone. Refuses family assistance. 05/14 [facility] cont to work with patient to arrange for placement, she cont to refuse anything but home to live alone at this time. 04/29 pt appropriate this morning. She is adament on going home to an apt to live alone. Refusing to work with staff to coordinate placement options. 04/18 after meeting with the patient this morning is appears as though she remains able to make her own decisions. We talked about her lack of a HCP, she advised that she simply had not been able to decide who she should appoint to make her decisions as she doesn't have much family. States that her son and his are not options for her and her sister Danette she doesn't believe would be up for the job. She states that she does not want to be resuscitated however. She does not want to be kept alive on machines and if she is no longer breathing she doesn't want any machines to change that. I inquired with her what she would want done if her heart stopped beating and she was very clear that she wanted nothing done. I asked her if we could complete a form noting such. She states that we could but she didn't want to sign up. I asked her if that was because she was unsure of her decision and she said absolutely not. I left the room to obtain a MOLST form as well as the Charge Nurse Lorraine. We held this conversation with Aide again where she very clearly verbalized her wish not to be resuscitated. The MOLST form was therefore completed with 2 witnesses and no patient signature. Pt is now DNR. 04/05 - Appreciate Psych consult. Could consider trying Seroquel 25 mg at hs to help with the agitation and sundowning. I have a call out to her son to discuss risks involve with using this type of medication in the elderly. I spoke with her son the other day and he would ideally like to take her home, but they cannot handle her if she becomes agitated like she did on the day of admission. They are afraid she will hurt herself or they may hurt her when trying to restrain her. She responded well to Haldol on admission without significant sedation, however using this medication alf carries increased risk of in elderly patients. In the meantime, we will start process of placement, but if she remains stable (not agitated, wandering, sleeping through the night, her family may be able to take her home Addendum: 04/08/18 - I was able to get ahold of Aide's son and discussed risks and benefits of using Seroquel including increased risk of . He would like to try it while she is here in the hospital to see if it controls her paranoid delusions and agitation enough to allow for them to handle her at home. (Progressively worsening now with episodes of delusions. she lives with her son and his and children. Family unable to mange her at home when she is delusional because she becomes agitated and is up all night waking family members) (2) Delusion of Status: Resolved Problem Text: CT abd/pelvis negative from 03/28/18. + hysterectomy. (3) Abdominal pain Status: Resolved Problem Text: Patient denies abdominal pain Abd x-ray neg. Renal US neg. CT Abd/pelvis negative from 03/28. (4) Hypothyroid Status: Chronic Response to Treatment: Stable Problem Text: 07/01/18 Continue levothyroxine 25mcg PO daily (5) CKD (chronic kidney disease), stage III Status: Chronic Response to Treatment: Stable Plan/VTE VTE Prophylaxis Ordered?: Yes (plavix, TEDS/SCDs) Plan Anticipated Discharge: Group Home Disposition Pending placement in [facility] tomorrow morning. VS, I&O, 24H, Fishbone Vital Signs/I&O Vital Signs Date Time Temp Pulse Resp B/P (MAP) Pulse Ox O2 Delivery O2 Flow Rate FiO2 07/02/18 06:00 98.8 60 18 123/62 (82) 95 Room Air I&O- Last 24 Hours up to 6 AM 07/02/18 06:00 Intake Total 960 ml Balance 960 ml CRISTINA JACQUES DO Jul 02, 2018 14:26
[2018-07-02] MEDS: ATORVASTATIN 20 MG TAB PO SCH (21:21)
[2018-07-03 06:00] VITALS: BP 130/65
[2018-07-03 06:16] LABS: HEMATOCRIT 35.5 % (36.0-47.0); HEMOGLOBIN 11.9 g/dl (12.0-15.5); MEAN CORPUSCULAR HEMOGLOBIN 29.8 pg (27.0-33.0); MEAN CORPUSCULAR HGB CONC 33.5 g/dl (32.0-36.5); PLATELET COUNT, AUTOMATED 312 10^3/uL (150-450); RED BLOOD COUNT 3.99 10^6/uL (4.00-5.40); WHITE BLOOD COUNT 8.4 10^3/uL (4.0-10.0)
[2018-07-03 06:39] LABS: CALCIUM LEVEL 8.9 MG/DL (8.8-10.2); CREATININE FOR GFR 1.19 MG/DL (0.55-1.30); GLOMERULAR FILTRATION RATE 46.5 (>32); POTASSIUM SERUM 4.1 MEQ/L (3.5-5.1)
[2018-07-03] MEDS: VITAMIN D 1,000 INTERNATIONAL UNITS TABLET PO SCH (09:43)
[2018-07-03] MEDS: FUROSEMIDE 20 MG TAB PO SCH (09:43)
[2018-07-03] MEDS: POTASSIUM CHLORIDE 10 MEQ SR TABLET PO SCH (09:43)
[2018-07-03] MEDS: LEVOTHYROXINE 50MCG TABLET (0.05MG) PO SCH (09:44)
[2018-07-03] MEDS: CLOPIDOGREL 75 MG TAB PO SCH (09:44)
[2018-07-03] MEDS: ATORVASTATIN 20 MG TAB PO SCH (21:10)
[2018-07-04 06:00] VITALS: BP 144/65
--- NOTE | 2018-07-04 11:32 | IPNPDOC ---
Subjective Date Seen The patient was seen on 07/04/18. Subjective Chief Complaint/HPI Patient is laying on the bed sleeping when I walked into the exam room. She states that she is very sleeping, stating she slept late last night. She only answer questions with a few words. It was noted that patient did not appear to be lethargic throughout the day yesterday. She answers no when being asked if she has any fever, chills, headache, nausea, vomiting, abdominal pain, chest pain, palpitation, or SOB. General: Reports: ROS Unobtainable (ROS limited d/t somnolence(stating she is very sleepy)); Denies: Chills Constitutional: Denies: Chills, Fever ENT: Denies: Head Aches Cardiovascular: Denies: Chest Pain, Palpitations Gastrointestinal: Denies: Nausea, Vomiting, Abdominal Pain, Diarrhea, Constipation Objective Physical Examination General Exam: Positive: Alert (alert but lethargic, able to answer some questions with words/ short sentences), No Acute Distress Eye Exam: Positive: Conjunctiva & lids normal ENT Exam: Positive: Atraumatic, Mucous membr. moist/pink, Other ENT (Multiple teeth loss) Neck Exam: Positive: Supple; Negative: JVD Chest Exam: Positive: Clear to auscultation, Normal air movement; Negative: Rales, Rhonchi, Wheezing Heart Exam: Positive: Rate Normal, Regular Rhythm, Normal S1, Normal S2; Negative: Murmurs Abdomen Exam: Positive: Normal bowel sounds, Soft; Negative: Tenderness Extremity Exam: Negative: Clubbing, Cyanosis, Edema Skin Exam: Positive: Nl turgor and temperature Neuro Exam: Positive: Normal Speech Psych Exam: Positive: Other (Mood appropriate to situation. ); Negative: Memory Intact Assessment /Plan Problems (1) Vascular dementia Status: Chronic Problem Text: Patient remains adamantly opposed to [facility] placement-she feels "safe" here. Patient's family continue to refuse fci placement. Functionally patient remains safe for discharge to fci. 07/04/18 Catherine Roberson presented case to her mails supervisor Anh Niño who presented case to the Ethics Committee. We continue to await their decision. 06/12/19 Dr. Santiago agreed c dx of vascular dementia c mid-mod cognitive deficit WITHOUT psychosis; therefore, NO indication for anti-psychotic medication. He felt she retained capacity to make medical decisions 03/28/18 B12 426 03/28/18 RPR NR 04/01/18 CT head: NAD Atrophy with periventricular leukomalacia and microvascular ischemic changes are appreciated. The ventricles and sulci are symmetric. Cheng-white differentiation is maintained. There is no evidence for acute intracranial hemorrhage, mass/mass effect, pathology or infarction. No extra-axial fluid collection. Calvarium is intact. Paranasal sinuses and mastoid air cells are clear. (2) Delusion of Status: Resolved Problem Text: CT abd/pelvis negative from 03/28/18. + hysterectomy. (3) Hypothyroid Status: Chronic Response to Treatment: Stable Problem Text: 05/08/18 TSH 6.1 on HD LT4 25 (4) CKD (chronic kidney disease), stage III Status: Chronic Response to Treatment: Stable Problem Text: At baseline.GFR 45-50 Plan/VTE VTE Prophylaxis Ordered?: Yes (plavix, TEDS/SCDs) Plan Anticipated Discharge: [facility] Disposition family refuse to sign to let her got to [facility]; requesting medication for dementia. Case to ethic committee yesterday. VS, I&O, 24H, Fishbone Vital Signs/I&O Vital Signs Date Time Temp Pulse Resp B/P (MAP) Pulse Ox O2 Delivery O2 Flow Rate FiO2 07/04/18 06:00 98.8 58 18 144/65 (91) 95 Room Air I&O- Last 24 Hours up to 6 AM 07/04/18 05:59 Intake Total 1280 ml Output Total 0 ml Balance 1280 ml CRISTINA JACQUES DO Jul 04, 2018 11:32 Geoffrey Wilson M.D. Jul 04, 2018 17:13
[2018-07-04] MEDS: FUROSEMIDE 20 MG TAB PO SCH (11:59)
[2018-07-04] MEDS: POTASSIUM CHLORIDE 10 MEQ SR TABLET PO SCH (12:00)
[2018-07-04] MEDS: VITAMIN D 1,000 INTERNATIONAL UNITS TABLET PO SCH (12:00)
[2018-07-04] MEDS: LEVOTHYROXINE 50MCG TABLET (0.05MG) PO SCH (12:00)
[2018-07-04] MEDS: CLOPIDOGREL 75 MG TAB PO SCH (12:00)
[2018-07-04 18:15] LABS: HEMATOCRIT 39.7 % (36.0-47.0)
[2018-07-04 18:55] LABS: FREE T4 1.29 NG/DL (0.76-1.46); THYROID STIMULATING HORMONE 5.9 uIU/ML (0.358-3.740)
[2018-07-04] MEDS: ATORVASTATIN 20 MG TAB PO SCH (21:00)
[2018-07-05 06:00] VITALS: BP 134/61
[2018-07-05] MEDS: LEVOTHYROXINE 50MCG TABLET (0.05MG) PO SCH (11:08)
[2018-07-05] MEDS: CLOPIDOGREL 75 MG TAB PO SCH (11:08)
[2018-07-05] MEDS: FUROSEMIDE 20 MG TAB PO SCH (11:08)
[2018-07-05] MEDS: POTASSIUM CHLORIDE 10 MEQ SR TABLET PO SCH (11:08)
[2018-07-05] MEDS: VITAMIN D 1,000 INTERNATIONAL UNITS TABLET PO SCH (11:08)
[2018-07-05] MEDS: ATORVASTATIN 20 MG TAB PO SCH (22:04)
[2018-07-06 06:00] VITALS: BP 179/78
[2018-07-06] MEDS: VITAMIN D 1,000 INTERNATIONAL UNITS TABLET PO SCH (09:37)
[2018-07-06] MEDS: FUROSEMIDE 20 MG TAB PO SCH (09:37)
[2018-07-06] MEDS: LEVOTHYROXINE 50MCG TABLET (0.05MG) PO SCH (09:38)
[2018-07-06] MEDS: CLOPIDOGREL 75 MG TAB PO SCH (09:38)
[2018-07-06] MEDS: POTASSIUM CHLORIDE 10 MEQ SR TABLET PO SCH (09:38)
[2018-07-06] MEDS: ATORVASTATIN 20 MG TAB PO SCH (21:25)
[2018-07-07 06:00] VITALS: BP 170/83
[2018-07-07] MEDS: POTASSIUM CHLORIDE 10 MEQ SR TABLET PO SCH (08:14)
[2018-07-07] MEDS: ACETAMINOPHEN 500 MG TAB PO PRN ×2 (08:15→21:57)
[2018-07-07] MEDS: FUROSEMIDE 20 MG TAB PO SCH (08:15)
[2018-07-07] MEDS: LEVOTHYROXINE 50MCG TABLET (0.05MG) PO SCH (08:15)
[2018-07-07] MEDS: CLOPIDOGREL 75 MG TAB PO SCH (08:15)
[2018-07-07] MEDS: VITAMIN D 1,000 INTERNATIONAL UNITS TABLET PO SCH (08:15)
[2018-07-07] MEDS: ATORVASTATIN 20 MG TAB PO SCH (21:56)
[2018-07-08 06:00] VITALS: BP 132/61
[2018-07-08] MEDS: VITAMIN D 1,000 INTERNATIONAL UNITS TABLET PO SCH (08:48)
[2018-07-08] MEDS: POTASSIUM CHLORIDE 10 MEQ SR TABLET PO SCH (08:48)
[2018-07-08] MEDS: CLOPIDOGREL 75 MG TAB PO SCH (08:49)
[2018-07-08] MEDS: FUROSEMIDE 20 MG TAB PO SCH (08:49)
[2018-07-08] MEDS: LEVOTHYROXINE 50MCG TABLET (0.05MG) PO SCH (08:49)
[2018-07-08] MEDS: ACETAMINOPHEN 500 MG TAB PO PRN (16:41)
[2018-07-08] MEDS: ATORVASTATIN 20 MG TAB PO SCH (20:47)
--- NOTE | 2018-07-08 21:25 | IPNPDOC ---
Text Note Date of Service The patient was seen on 07/08/18. NOTE I spent about 75 minutes today coordinating the patient's discharge plan with the discharge planning team including: Anh Niño, Evy Roberson, Tracie, the patient's son Ayaka, and her wfbmaacy-tw-ruv Claudia. The first roughly 50 minutes were spent discussing Ms. Benito's care with the individuals above. At the end of that discussion it was clear to all involved that Ayaka and He ather did not have the personal resources to bring her home with them. She requires round the clock supervision and they both work out of the home and would be gone for significant portions of the day. There is no longer an in-home care provider available to them. Ayaka stated that his preference is that she be placed in a unit with the proper security for her as close to this area as is possible. He was made aware that [facility] is the only such facility in [place], and that they have a very long waiting list so she will not be staying in town. He expressed a strong preference for [place] over [place] and would really rather she not be placed farther away than that. He is aware that there may not be an option based on where a bed is available. When we all went into talk with Ms. Benito about this she stated that where she went was none of my business. I tried to explain to her that I have to write the discharge orders, so it is important that I know what her plan is. She then stated that her plan is to live with her . I asked her if she remembered how long he has been and she stated, "Not that one. I have two others. I wi ll go and live with Jef." (She does not have a named Jef, her family verified this.) I asked her what Jef's last name is because I have not met him. She said she wasn't very good with last names and asked the nurse present to help her remember Jef's name. Then she "recalled" it is Israel Wood. I asked where she intends to live with him; what is the address. [place] [place] This is clearly all a confabulation (verified by her family) and I think clear evidence that she is not competent to make her own housing decisions. I went down to the [facility] and attempted to get Dr. Maria of psychiatry to come to the floor to evaluate her and confirm this, but she declined. Even though she is physically in this building she prefers that Dr. Villanueva or Dr. Garrett who have both evaluated Ms. Benito in the past three months reevaluate her. This is frustrating as they are in the outpatient office and would not be able to see her until much later in the day. Her mental status fluctuates between her baseline dementia and delirium and I am concerned that they will not get a real sense of how impaired she is at this time. I called Dr. Villanueva who did the initial evaluation and who is ceramic maker demonstrator today. She will see her at the end of the day and assess her competence to make housing decisions. VS,Fishbone, I+O VS, Fishbone, I+O Vital Signs Date Time Temp Pulse Resp B/P (MAP) Pulse Ox O2 Delivery O2 Flow Rate FiO2 07/08/18 06:00 98.8 58 18 132/61 (84) 97 Room Air I&O- Last 24 Hours up to 6 AM 07/08/18 06:00 Intake Total 840 ml Balance 840 ml Wilson Dailey MD Jul 08, 2018 21:25
[2018-07-09 06:00] VITALS: BP 154/68
[2018-07-09] MEDS: CLOPIDOGREL 75 MG TAB PO SCH (09:00)
[2018-07-09] MEDS: LEVOTHYROXINE 50MCG TABLET (0.05MG) PO SCH (09:01)
[2018-07-09] MEDS: VITAMIN D 1,000 INTERNATIONAL UNITS TABLET PO SCH (09:02)
[2018-07-09] MEDS: POTASSIUM CHLORIDE 10 MEQ SR TABLET PO SCH (09:02)
[2018-07-09] MEDS: FUROSEMIDE 20 MG TAB PO SCH (09:02)
[2018-07-09] MEDS: ATORVASTATIN 20 MG TAB PO SCH (20:36)
[2018-07-10] MEDS: CLOPIDOGREL 75 MG TAB PO SCH ×2 (09:00→09:09)
[2018-07-10] MEDS: FUROSEMIDE 20 MG TAB PO SCH (09:09)
[2018-07-10] MEDS: VITAMIN D 1,000 INTERNATIONAL UNITS TABLET PO SCH (09:09)
[2018-07-10] MEDS: POTASSIUM CHLORIDE 10 MEQ SR TABLET PO SCH (09:09)
[2018-07-10] MEDS: LEVOTHYROXINE 50MCG TABLET (0.05MG) PO SCH (09:09)
[2018-07-10] MEDS: ATORVASTATIN 20 MG TAB PO SCH (20:24)
[2018-07-11 06:00] VITALS: BP 142/64
[2018-07-11] MEDS: CLOPIDOGREL 75 MG TAB PO SCH (09:42)
[2018-07-11] MEDS: VITAMIN D 1,000 INTERNATIONAL UNITS TABLET PO SCH (09:43)
[2018-07-11] MEDS: FUROSEMIDE 20 MG TAB PO SCH (09:43)
[2018-07-11] MEDS: POTASSIUM CHLORIDE 10 MEQ SR TABLET PO SCH (09:43)
[2018-07-11] MEDS: LEVOTHYROXINE 50MCG TABLET (0.05MG) PO SCH (09:43)
[2018-07-11] MEDS: ATORVASTATIN 20 MG TAB PO SCH (20:03)
[2018-07-12 06:00] VITALS: BP 127/59
[2018-07-12] MEDS: CLOPIDOGREL 75 MG TAB PO SCH (09:00)
[2018-07-12] MEDS: VITAMIN D 1,000 INTERNATIONAL UNITS TABLET PO SCH (09:46)
[2018-07-12] MEDS: LEVOTHYROXINE 50MCG TABLET (0.05MG) PO SCH (09:46)
[2018-07-12] MEDS: FUROSEMIDE 20 MG TAB PO SCH (09:47)
[2018-07-12] MEDS: POTASSIUM CHLORIDE 10 MEQ SR TABLET PO SCH (09:47)
[2018-07-12] MEDS: ATORVASTATIN 20 MG TAB PO SCH (21:33)
[2018-07-12] MEDS: ACETAMINOPHEN 500 MG TAB PO PRN (21:34)
[2018-07-13 06:00] VITALS: BP 170/72
[2018-07-13] MEDS: POTASSIUM CHLORIDE 10 MEQ SR TABLET PO SCH (09:32)
[2018-07-13] MEDS: VITAMIN D 1,000 INTERNATIONAL UNITS TABLET PO SCH (09:33)
[2018-07-13] MEDS: LEVOTHYROXINE 50MCG TABLET (0.05MG) PO SCH (09:33)
[2018-07-13] MEDS: FUROSEMIDE 20 MG TAB PO SCH (09:35)
[2018-07-13] MEDS: CLOPIDOGREL 75 MG TAB PO SCH (09:35)
[2018-07-13] MEDS: ATORVASTATIN 20 MG TAB PO SCH (20:04)
[2018-07-13] MEDS: ACETAMINOPHEN 500 MG TAB PO PRN (20:05)
[2018-07-14 06:00] VITALS: BP 178/75
[2018-07-14] MEDS: CLOPIDOGREL 75 MG TAB PO SCH (09:00)
[2018-07-14] MEDS: VITAMIN D 1,000 INTERNATIONAL UNITS TABLET PO SCH (10:39)
[2018-07-14] MEDS: FUROSEMIDE 20 MG TAB PO SCH (10:39)
[2018-07-14] MEDS: POTASSIUM CHLORIDE 10 MEQ SR TABLET PO SCH (10:40)
[2018-07-14] MEDS: LEVOTHYROXINE 50MCG TABLET (0.05MG) PO SCH (10:40)
[2018-07-14 21:00] VITALS: BP 140/80
[2018-07-14] MEDS: ATORVASTATIN 20 MG TAB PO SCH (21:24)
[2018-07-15 06:00] VITALS: BP 153/67
[2018-07-15] MEDS ORDERED: HALOPERIDOL 0.5 MG TAB PO PRN (09:15)
[2018-07-15] MEDS: CLOPIDOGREL 75 MG TAB PO SCH (11:43)
[2018-07-15] MEDS: FUROSEMIDE 20 MG TAB PO SCH (11:46)
[2018-07-15] MEDS: LEVOTHYROXINE 50MCG TABLET (0.05MG) PO SCH (11:46)
[2018-07-15] MEDS: VITAMIN D 1,000 INTERNATIONAL UNITS TABLET PO SCH (11:46)
[2018-07-15] MEDS: POTASSIUM CHLORIDE 10 MEQ SR TABLET PO SCH (11:46)
[2018-07-15] MEDS: ATORVASTATIN 20 MG TAB PO SCH (21:35)
[2018-07-16 06:00] VITALS: BP 135/64
[2018-07-16] MEDS: LEVOTHYROXINE 50MCG TABLET (0.05MG) PO SCH (08:31)
[2018-07-16] MEDS: FUROSEMIDE 20 MG TAB PO SCH (08:32)
[2018-07-16] MEDS: VITAMIN D 1,000 INTERNATIONAL UNITS TABLET PO SCH (08:32)
[2018-07-16] MEDS: POTASSIUM CHLORIDE 10 MEQ SR TABLET PO SCH (08:32)
[2018-07-16] MEDS: CLOPIDOGREL 75 MG TAB PO SCH (08:35)
[2018-07-16] MEDS ORDERED: HALOPERIDOL 5 MG/ML VIAL (J1630) IM ONE (09:45)
--- NOTE | 2018-07-16 14:03 | DSES ---
DATE OF ADMISSION: 04/03/2018 DATE OF DISCHARGE: 07/16/2018 BRIEF HISTORY AND PHYSICAL: Patient is an 82-year-old patient of [facility] who was brought to the emergency room by her family due to altered mental status and dementia with behavioral disturbances. She was complaining that her abdomen hurt and that she was and that her water broke. PAST MEDICAL HISTORY: Significant for dementia, hypothyroidism, hyperlipidemia, chronic obstructive pulmonary disease (COPD), coronary artery disease, status post questionable graft but there are no records of this and she declined cardiology referrals. PERTINENT LABS ON ADMISSION: Show white count 9.7, hemoglobin 11.9, platelets 304,000. Sodium 143, potassium 4.4, BUN 31, creatinine 1.0, glucose 85, TSH 3.5. B12 was checked during the hospitalization and was 469. Toxicology screen was negative. Alcohol level was less than 0.003. Urine was clear. Head CT showed atrophy with microvascular ischemic changes. No acute intracranial hemorrhage, infarct, or mass. HOSPITAL COURSE: Patient was admitted for advanced dementia with delusions. Initially, Seroquel was started to manage her hallucinations and agitation and combativeness; however, overall, her agitation settled down without any need for sedation or medication. She remains intermittently confused with some delusional thoughts. She no longer has delusions of being , but she does think that her is still alive. She was evaluated by Dr. Villanueva, one of our psychiatrists, and Dr. Santiago, another psychiatrist, both of whom, at the time of their evaluation, felt that she had capacity to make decisions regarding her care and discharge planning; however, it was clear, particularly from Dr. Santiago's note, that her mental status waxes and wanes and that her capacity changes from time to time as well. This has been a challenge in regard to coming up with a discharge plan. Ultimately, her son and [id number], whom she was staying with before, would not be able to provide the 24-hour care and supervision that she would need; and therefore, she will be placed in a [facility] shelter. Bed is available today. She is medically stable for transfer. DISCHARGE MEDICATIONS: Include: - acetaminophen 1000 mg every 6 hours as needed - atorvastatin 40 mg at bedtime - vitamin D 1000 international units daily - Plavix 75 mg daily - furosemide 20 mg day - levothyroxine 25 mcg daily - potassium 20 mEq daily DISCHARGE DIAGNOSES: 1. Vascular dementia with delusions. 2. Hypothyroidism. 3. Chronic kidney disease stage III. 4. History of coronary artery disease. ADDENDUM: Patient was discharged on 07/16/2018. The patient was scheduled to be transferred to a shelter. Catherine Roberson, the social research assistant, called me to tell me that the patient refused to get into the wheelchair at the time of leaving. She had an order for oral Haldol to be given that morning in anticipation for her leaving, in an effort to prevent her from becoming agitated as was anticipated with the move. However, she had refused her medications that morning. Catherine called to let me know that she was agitated and not cooperative with getting into the transport chair to leave. I spoke with Lorraine, the charge nurse, about the situation. We have reviewed her previous medication history. She has received intramuscular (IM) Haldol at one other occasion during the hospitalization when she first was admitted and was quite agitated and tolerated that well. I spoke with Dr. Clayton, the attending in the case, to determine whether she felt as though IM Haldol may be a reasonable option. She told me that a dose of IM Haldol would be okay to give. I ordered 0.5 mg of IM Haldol for Aide to be given, and the staff verbally started to calm her and eventually they were able to convince her to get in the chair for transport to the shelter. Addendum dictated: MICHAEL 07/17/2018 1150 Addendum transcribed: elizabeth 07/17/2018 [id number]
== END 2018-07-16 11:10 | DRG 948 ==
LOC: M ED 17:23 → EDBD 17:23 → M ED INP 17:24 → M MS4PR 04-02 08:17 → OBSVTOIN 04-03 14:35 → M MS5PR 04-04 12:14
PROVIDERS: ADMIT Internal Medicine; ATTEND Family Medicine
DX: R41.0 Disorientation, unspecified (principal); F01.51 Vascular dementia, unspecified severity, with behavioral disturbance; E78.5 Hyperlipidemia, unspecified; N18.3 Chronic kidney disease, stage 3 (moderate); R10.9 Unspecified abdominal pain; E03.9 Hypothyroidism, unspecified; Z66 Do not resuscitate; Z86.73 Personal history of transient ischemic attack (TIA), and cerebral infarction without residual deficits; Z79.02 Long term (current) use of antithrombotics/antiplatelets; Z88.6 Allergy status to analgesic agent; Z79.899 Other long term (current) drug therapy